=== PATIENT | female | born 1970 | race Hispanic/Latino ===

== ENCOUNTER 2016-03-26 21:08 | Inpatient (IN) | payer SELFPAY ==
[~2016-03-26] VITALS: Ht 167.6 cm; Wt 152.0 kg
[2016-03-26] MEDS: NORTRIPTYLINE 25 MG CAP PO SCH (02:48)
[2016-03-26] MEDS ORDERED: ONDANSETRON 4MG/2ML VIAL (J2405) As Ordered ONE (22:10)
[2016-03-26] MEDS ORDERED: HYDROmorphone HCL 1 MG/ML SYRINGE (J1170) As Ordered ONE ×2 (22:10→23:35)
--- NOTE | 2016-03-26 22:30 | REPUSA ---
Clinical history: Pain, swelling. Findings: The common femoral, superficial femoral, popliteal, and other deep venous structures compre ss normally and demonstrate normal color Doppler flow. Normal venous waveforms with augmentation are seen. The study is slightly limited because of the patient's body habitus. Impression: No evidence of deep vein thrombosis in either femoral popliteal venous system.
[2016-03-26] MEDS ORDERED: IRON65TA PO (23:47)
[2016-03-26] MEDS ORDERED: MAXA10TA14 PO (23:47)
[2016-03-26] MEDS ORDERED: DILA4TAB PO (23:47)
[2016-03-26] MEDS ORDERED: SYMB16INH INH (23:47)
[2016-03-26] MEDS ORDERED: HYDR-4274 PO ×2 (23:47)
[2016-03-26] MEDS ORDERED: MSIR30TA PO (23:47)
[2016-03-26] MEDS ORDERED: PAXI40TA2 PO (23:47)
[2016-03-26] MEDS ORDERED: ZOFR20TA PO (23:47)
[2016-03-26] MEDS ORDERED: NEUR800T PO (23:47)
[2016-03-26] MEDS ORDERED: PROA1AER INH (23:47)
[2016-03-26] MEDS ORDERED: ZANA4CAP PO (23:47)
[2016-03-26] MEDS ORDERED: AMBI5TAB PO (23:47)
[2016-03-26] MEDS ORDERED: NORT50CA PO (23:47)
[2016-03-27] MEDS ORDERED: ALBUTEROL 90 MCG/ACT 8GM HFA INHALER INH PRN (01:30)
[2016-03-27 02:15] VITALS: BP 128/78
--- NOTE | 2016-03-27 02:38 | EDDOCDS ---
Nurse's Notes [facility] Name: Bronwyn Bender Age: 45 yrs Sex: Female : 1970 Arrival Date: 03/26/2016 Time: 21:08 Bed Family 1 Private MD: NO PRIMARY PHYSICIAN, . Diagnosis: Pain in left knee;Pain in right knee;Patient's noncompliance with medical treatment and regimen;Difficulty in walking, not elsewhere classified Presentation: 03/26 21:32 Presenting complaint: Patient states: Just relocated here (yesterday) from [place]. Had jo3 AKHIL total knee replacements 03/01/16 and was sitting too long and now knees are stiff and very painful. Is on Dilaudid and morphine PO for chronic back pain and can have Dilaudid every 4-5 hours but states she has not taken any since 1500 this afternoon. Adult Sepsis Screening: The patient does not have new or worsening altered mentation. Patient's respiratory rate is less than 22. Systolic blood pressure is greater than 100. Patient has a qSOFA score of 0- Negative Sepsis Screen. Suicide/Homicide risk assessment- the patient denies having any suicidal and/or homicidal ideations and does not present with any other emotional, behavioral or mental health complaints. 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 Transition of care: patient was not received from another setting of care. 21:32 Acuity: TASHA Level 4 jo3 21:32 Method Of Arrival: Ambulance jo3 22:15 Acuity level changed due to complexity of care. jo3 22:15 Acuity: TASHA Level 3 jo3 Triage Assessment: 21:45 General: Appears obese, uncomfortable, unkempt, Behavior is cooperative, tearful. Pain: jo3 Location: AKHIL knees. The patient is triaged at the bedside. See Assessment in Nurses Notes section of ED record. Neurological: Level of Consciousness is awake, alert, Oriented to person, place, time. Cardiovascular: No deficits noted. Respiratory: Airway is patent Respiratory effort is even, unlabored. Derm: Skin is pink, warm & dry. Akhil knee incisions healing well and asymptomatic. 03/27 02:02 HIV screening NA for this visit. 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 gabapentin 800 mg Oral tab 1 tab 3 times per day (Last dose: 03/26/2016 17:00) 2. Maxalt 10 mg oral tab 1 tab at onset of migraine (Last dose: 03/25/2016) 3. Paxil 40 mg Oral tab 1 tab once daily (Last dose: 03/26/2016 07:00) 4. hydroxyzine HCl 50 mg Oral tab 1 tab BID and 2 tabs at HS 5. Ambien 5 mg Oral tab 1 tab once daily (Last dose: 03/25/2016) 6. Dilaudid 4 mg Oral tab 1 tab every 4-6 hours (Last dose: 03/26/2016 15:00) 7. morphine 30 mg Oral cap three times a day (Last dose: 03/26/2016 15:00) 8. nortriptyline 50 mg Oral cap HS (Last dose: 03/25/2016) 9. Zanaflex 4 mg Oral tab TID (Last dose: 03/26/2016 15:00) 10. Zofran (as hydrochloride) 4 mg Oral tab every 8 hours as needed - PMHx: Depression; Anxiety; Chronic Back pain; Migraines; - PSHx: Cholecystectomy; Appendectomy; x2; L5 S1 fusion (2009); Gastric Bypass (2008); D & C (1990); AKHIL Knee Replacements (March 01, 2016); Hysterectomy (2002); - Social history: No barriers to communication noted, The patient speaks fluent Egyptian, Speaks appropriately for age. - Family history: Not pertinent. - : The pt / caregiver states he / she is not on anticoagulants. Home medication list is obtained from the patient. - Exposure Risk Screening:: None identified. Screenin:44 Screening information is obtained from the patient. Fall risk: At risk due to chronic kmg1 pain and medications. Assistance ADL's: requires no assistance with activities of daily living. Abuse/DV Screen: The patient / caregiver reports he/she is: not in a situation that causes fear, pain or injury. Nutritional screening: No deficits noted. Advance Directives: There is no active DNR order. home support is adequate. Assessment: 21:47 Reassessment: see triage assessment . jo3 22:34 Reassessment: Pt insisted on knowing how many milligrams of Dilaudid she was receiving jo3 because "1mg doesn't do it...It takes 2mg". Pt advised that we will monitor her for medications effectiveness . 23:44 General: Appears in no apparent distress, obese, Behavior is appropriate for age. Pain: kmg1 Location: right leg and left leg. : Incontinent for large amount of urine. 03/27 00:45 Reassessment: Patient appears in no apparent distress at this time. Patient states kmg1 symptoms have improved. Patient resting comfortably on stretcher. 01:30 General: Appears in no apparent distress, comfortable, Behavior is appropriate for age. kmg1 Pain: Location: back and left leg and right leg. Vital Signs: 03/26 21:45 BP 126 / 64; Pulse 83; Resp 20; Temp 98.4(TE); Pulse Ox 97% on R/A; Weight 155.58 kg; jo3 Height 5 ft. 6 in. (167.64 cm); Pain 10/10; 03/27 01:41 BP 139 / 70 (auto/); Pulse 82; Resp 18; Pulse Ox 97% on R/A; kmg1 03/26 21:45 Body Mass Index 55.36 (155.58 kg, 167.64 cm) jo3 Vitals: 03/26 21:45 Log In Time N/A - ambulance arrival. 3 ED Course: 21:09 Patient visited by Ela Watson, Basketball Scout. ml3 21:09 NO PRIMARY PHYSICIAN, . is Private Physician. ml3 21:09 Patient moved to Waiting ml3 21:11 Esperanza Aburto, KIERA is Primary Nurse. ml3 21:11 Juan Holloway DO is Attending Physician. mm11 21:11 Patient moved to 5 ml3 21:12 Patient visited by Juan Holloway DO. mm11 21:34 Triage Initiated jo3 21:47 Patient visited by Juan Holloway DO. mm11 22:15 Patient visited by Priti Moy,KIERA. jo3 22:35 Patient visited by Priti Moy,KIERA. jo3 22:41 [facility] Payment Agreement was scanned into [employer] and attached to record. jp5 22:50 Inserted saline lock: 22 gauge in left hand. kmg1 22:52 Patient name changed from Bronwyn\\S\\\\S\\Bender\\S\\ to Bronwyn\\S\\ \\S\\Bender. EDMS 22:52 Duplex, Ext LOWER veins, bilat Returned. EDMS 23:28 Patient visited by Juan Holloway DO. mm11 23:28 Salmaulysses Clemente is Hospitalizing Provider. mm11 23:44 The patient / caregiver is instructed regarding the plan of care and ED course. km 23:51 Patient visited by Esperanza Aburto RN. [facility] 03/27 01:15 Patient visited by William Hand PCA. kb5 01:41 No procedures done that require assistance. [facility] 02:08 Patient moved to Family 1 ml3 Administered Medications: 03/26 22:33 Drug: Dilaudid - HYDROmorphone 1 mg [hydromorphone 1 mg/mL injection syringe (1 mL)] jo3 Route: IVP; Site: right hand; 23:34 Follow up: Response: No significant change. [facility] 22:33 Drug: Ondansetron 4 mg [ondansetron HCl 2 mg/mL intravenous solution (2 mL)] Route: jo3 IVP; Site: right hand; 23:42 Drug: Dilaudid - HYDROmorphone 2 mg [hydromorphone 1 mg/mL injection syringe (2 mL)] [facility] Route: IVP; Site: right hand; Order Results: Radiology Order: Duplex, Ext LOWER veins, bilat Test: Duplex, Ext LOWER veins, bilat REASON FOR EXAMINATION: Deformity/Swelling; ; Clinical history: Pain, swelling.; Findings: The common femoral, superficial femoral, popliteal, and other deep venous structures compre; ss normally and demonstrate normal color Doppler flow. Normal venous waveforms with augmentation are; seen. The study is slightly limited because of the patient's body habitus.; Impression:; No evidence of deep vein thrombosis in either femoral popliteal venous system.; ; Outcome: 23:29 Decision to Hospitalize by Provider. mm11 03/27 02:01 Discharge Assessment: Patient awake, alert and oriented x 3. No cognitive and/or ko2 functional deficits noted. Patient verbalized understanding of disposition instructions. patient administered narcotics -. The following High Risk Discharge criteria are identified: None. Admitted to Med/Surg accompanied by tech, via stretcher, with chart. Condition: stable. Ultrasound Study completed. Admission hand-off: Report Faxed Fax receipt verified by Lexy, KIERA 5 Herbert. Property :Personal belongings accompany Pt. 02:37 Patient left the ED. kmg1 Signatures: Dispatcher [employer] EDMS Esperanza Aburto, RN RN kmg1 Ela Watson, Basketball Scout Unit ml3 Priti MoyRN RN jo3 William Hand, YENI CLINICAL DIRECTOR kb5 Juan Holloway, DO mm11 Elba Miner RN RN keiko2 Sandeep Paniagua jp5 Corrections: (The following items were deleted from the chart) 03/26 21:53 21:45 BP 126 / 64; Pulse 20bpm; Resp 20bpm; Pulse Ox 97% RA; Temp 98.4F Temporal; jo3 155.58 kg; Height 5 ft. 6 in.; BMI: 55.3; Pain 10/10; jo3 MTDD
--- NOTE | 2016-03-27 02:38 | EDDOCDS ---
Physician Documentation [facility] Name: Bronwyn Bender Age: 45 yrs Sex: Female : 1970 Arrival Date: 03/26/2016 Time: 21:08 Bed Family 1 Private MD: NO PRIMARY PHYSICIAN, . Disposition: 03/26/16 23:29 Hospitalization ordered by Chyna Villar for Inpatient Admission. Preliminary diagnosis are Pain in left knee, Pain in right knee, Patient's noncompliance with medical treatment and regimen, Difficulty in walking, not elsewhere classified. - Bed requested for 5 Godinez. - Status is Inpatient Admission. kmg1 - Condition is Stable. - Problem is an ongoing problem. - Symptoms have improved. Historical: - Allergies: DAPTOMYCIN; Imitrex; Adhesive tape; - Home Meds: 1. gabapentin 800 mg Oral tab 1 tab 3 times per day (Last dose: 03/26/2016 17:00) 2. Maxalt 10 mg oral tab 1 tab at onset of migraine (Last dose: 03/25/2016) 3. Paxil 40 mg Oral tab 1 tab once daily (Last dose: 03/26/2016 07:00) 4. hydroxyzine HCl 50 mg Oral tab 1 tab BID and 2 tabs at HS 5. Ambien 5 mg Oral tab 1 tab once daily (Last dose: 03/25/2016) 6. Dilaudid 4 mg Oral tab 1 tab every 4-6 hours (Last dose: 03/26/2016 15:00) 7. morphine 30 mg Oral cap three times a day (Last dose: 03/26/2016 15:00) 8. nortriptyline 50 mg Oral cap HS (Last dose: 03/25/2016) 9. Zanaflex 4 mg Oral tab TID (Last dose: 03/26/2016 15:00) 10. Zofran (as hydrochloride) 4 mg Oral tab every 8 hours as needed - PMHx: Depression; Anxiety; Chronic Back pain; Migraines; - PSHx: Cholecystectomy; Appendectomy; x2; L5 S1 fusion (2009); Gastric Bypass (2008); D & C (1990); COLLIN Knee Replacements (March 01, 2016); Hysterectomy (2002); - Social history: No barriers to communication noted, The patient speaks fluent Egyptian, Speaks appropriately for age. - Family history: Not pertinent. - : The pt / caregiver states he / she is not on anticoagulants. Home medication list is obtained from the patient. - Exposure Risk Screening:: None identified. 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 6 in. (167.64 cm); Pain 10; 03/27 01:41 BP 139 / 70 (auto/); Pulse 82; Resp 18; Pulse Ox 97% on R/A; kmg1 03/26 21:45 Body Mass Index 55.36 (155.58 kg, 167.64 cm) jo3 MDM: 03/26 21:49 IV Saline Lock ordered. mm11 21:49 Dilaudid - HYDROmorphone 1 mg IVP once ordered. mm11 21:49 Ondansetron 4 mg IVP once ordered. mm11 21:49 Misc Acute Care Surgeon Order ordered. mm11 21:50 Knee, (AP\E\Lat) Ordered. EDMS 22:07 Misc Acute Care Surgeon Order complete. ml3 22:23 Duplex, Ext LOWER veins, bilat Ordered. EDMS 22:41 [facility] Payment Agreement was scanned into [employer] and attached to record. jp5 22:41 Financial registration complete. jp5 23:19 Dilaudid - HYDROmorphone 2 mg IVP once ordered. mm11 23:19 BED REQUEST+ADM ordered. EDMS 03/27 01:24 Admission / Observation Status ordered. EDMS 01:24 CT-Knee WITHOUT CONTRAST Ordered. EDMS 01:24 REGULAR DIET ordered. EDMS 01:25 COMPLETE BLOOD COUNT Ordered. EDMS 01:25 BASIC METABOLIC PROFILE Ordered. EDMS 01:41 THYROID STIMULATING HORMONE Ordered. EDMS 01:41 IRON (FE) Ordered. EDMS 01:41 TOTAL IRON BINDING CAPACIT Ordered. EDMS 01:41 FERRITIN Ordered. EDMS Administered Medications: 03/26 22:33 Drug: Dilaudid - HYDROmorphone 1 mg [hydromorphone 1 mg/mL injection syringe (1 mL)] jo3 Route: IVP; Site: right hand; 23:34 Follow up: Response: No significant change. kmg1 22:33 Drug: Ondansetron 4 mg [ondansetron HCl 2 mg/mL intravenous solution (2 mL)] Route: jo3 IVP; Site: right hand; 23:42 Drug: Dilaudid - HYDROmorphone 2 mg [hydromorphone 1 mg/mL injection syringe (2 mL)] kmg1 Route: IVP; Site: right hand; Signatures: Dispatcher [employer] EDMS Esperanza Aburto, RN RN g1 Ela Watson, Quantitative Software Engineer Unit ml3 Priti Moy RN RN jo3 Juan Holloway, DO mm11 Sandeep Paniagua jp5 The chart was reviewed and I authenticate all verbal orders and agree with the evaluation and treatment provided.Corrections: (The following items were deleted from the chart) 22:23 21:51 Duplex, Ext,LOWER veins,unilat+US ordered. EDMS EDMS Attachments: 22:41 [facility] Payment Agreement jp5 MTDD
--- NOTE | 2016-03-27 02:39 | HPE ---
DATE OF ADMISSION: 03/27/2016 PRIMARY CARE PROVIDER: Patient originally resided in [facility], recently moved to [place], no primary care provider (PCP) in [place] yet. HISTORY OF PRESENT ILLNESS: Patient is a 45-year-old female with a past medical history significant for morbid obesity, anxiety/depression, chronic back pain, migraine headache, bilateral osteoarthritis of the knees status post total knee replacement, presented to [facility] on 03/26/2016 for acute worsening bilateral knees. Patient had a bilateral total knee arthroplasty on 03/04/[address] Fisher in [facility]. Her hospitalization stay was complicated by pain control and patient was started on oral Dilaudid. Patient did not show significant progression of her physical activities; therefore, patient was discharged on 03/09/2016 and the patient was transferred to [facility] to continue subacute rehabilitation. Then patient did not finish the rehabilitation therapy and patient left the facility and flew to [place] with a 12-hour flight. After the long travel, patient started to have acute worsening of bilateral knee pain. Therefore, patient came to [facility] to seek further treatment. When patient was in the emergency room, ultrasound was performed, which showed negative for deep venous thrombosis (DVT) and hospitalist team was called for admission. All the information obtained from the patient and also from the medical record faxed from the [facility]. ALLERGIES: 1. DAPTOMYCIN (increased CPK level). 2. SUMATRIPTAN (chest pain). HOME MEDICATIONS: - albuterol two-puff inhalation as needed - Symbicort two-puff inhalation twice a day - Neurontin 800 mg by mouth three times a day - Dilaudid 4 mg by mouth every 4 hours as needed - hydroxyzine 50 mg by mouth every morning - hydroxyzine 100 mg by mouth nightly - iron 325 mg by mouth daily - morphine sulfate 30 mg by mouth three times a day - nortriptyline 50 mg by mouth nightly - Zofran 4 mg by mouth every 8 hours as needed for nausea - Paxil 40 mg by mouth daily - Maxalt 10 mg by mouth as needed for migraines - Zanaflex 4 mg by mouth three times a day - Ambien 5 mg by mouth nightly PAST MEDICAL HISTORY: 1. Anxiety/depression. 2. Chronic back pain. 3. Osteoarthritis. 4. Migraine headache. 5. Iron deficiency anemia. 6. Obstructive sleep apnea (YASMANI). 7. Fibromyalgia. 8. Morbid obesity. PAST SURGICAL HISTORY: 1. Hysterectomy. 2. Back surgery (L5-S1 fusion). 3. (C) section times two. 4. Cholecystectomy. 5. Appendectomy. 6. Dilation and curettage (D and C) of the uterus. 7. Bilateral total knee arthroplasty (03/01/2016). SOCIAL HISTORY: Denies smoking. Denies alcohol use. History of marijuana use, which is more than 20 years ago. Patient's used to work in [employer]. That is the reason why the patient and her decided to move to [place]. REVIEW OF SYSTEMS: GENERAL: No fever. No chills. Poor appetite. HEENT: No vision changes. No auditory changes. CARDIOVASCULAR: No chest pain. No palpitations. RESPIRATORY: No shortness of breath. No cough. No sputum production. GASTROINTESTINAL: No abdominal pain. No nausea. No vomiting. No diarrhea. GENITOURINARY: History of urinary incontinence as chronic issue. MUSCULOSKELETAL: Increased swelling and stiffness and pain of the bilateral knees after the long flight. NEUROLOGICAL: Chronic bilateral upper and lower extremity sensation decrease after the vertebral spine surgery. OBJECTIVE: VITAL SIGNS: Blood pressure 126/64, pulse 83, respirations 20, temperature 98.4, pulse oximetry is 97% in room air. Body weight is 155.58. Body height is 167.64 cm. LABORATORY TESTS: None. IMAGING STUDIES: Bilateral knee x-ray preliminary result showing no acute findings. ASSESSMENT AND PLAN: 1. Acute bilateral lower extremity pain. Patient will be admitted to medical/surgical floor on inpatient status. Will follow with laboratory tests. Clinically, patient is hemodynamically stable. Ultrasound and x-ray of bilateral knees show no significant findings. It is not likely patient has a clot or fluid collection. Patient's bilateral knees may be due to knee overuse and the situation complicated by patient's chronic pain. Patient is already on the high dose of narcotics including morphine and Dilaudid. Currently, will continue patient on her home medication. Patient will have a physical therapy evaluation in the morning. After physical therapy evaluation, we will see if patient will continue to benefit from the rehabilitation. 2. Anxiety/depression. Continue Paxil. Patient has been using hydroxyzine twice a day. 3. Fibromyalgia. Patient is on gabapentin and nortriptyline. 4. Insomnia. Ambien. 5. Migraine headache. Patient has Maxalt. 6. Morbid obesity. Body mass index (BMI) of 55.4. 7. Deep venous thrombosis (DVT) prophylaxis. On heparin.
[2016-03-27] MEDS: ONDANSETRON 4 MG TAB (S0181) PO PRN ×2 (02:45→13:07)
[2016-03-27] MEDS: hydrOXYzine 50 MG TAB PO SCH ×3 (02:45→22:49)
[2016-03-27] MEDS: tiZANidine 4 MG TAB PO SCH ×4 (02:46→22:50)
[2016-03-27] MEDS: zolPIDEM TARTRATE 5 MG TAB PO SCH ×2 (02:46→23:42)
[2016-03-27] MEDS: HYDROmorphone (DILAUDID) 4 MG TAB PO PRN ×3 (02:47→13:08)
[2016-03-27] MEDS: SYMBICORT 160/4.5MCG INHALER 6GM INH SCH ×3 (03:05→20:01)
--- NOTE | 2016-03-27 03:30 | REPUSA ---
Indication: Edema and swelling. Technique: Axial CT scan images without contrast. Reformatted coronal and sagittal images. Findings: Bilateral metallic knee arthroplasties. Metallic prosthesis is in good position. No fracture or dislo cation. Mild suprapatellar knee joint effusion. Moderate suprapatellar knee joint effusion. Bilateral periarticular subcutaneous soft tissue edema and fat stranding. Findings are more prominent on the left side. Impression: Osteopenia. Bilateral metallic knee arthroplasties. Metallic prostheses are in good position. Subcutaneous fat stranding and edema more on the left side. This can be secondary to systemic disease (congestive heart failure, venous stasis etc.), lymphedema versus cellulitis. This is clinical evalu ation. No drainable fluid collection.
[2016-03-27] MEDS ORDERED: NYSTATIN 100,000 UNITS/GM TOPICAL PWD 15 GM TOP SCH (03:45)
[2016-03-27] MEDS ORDERED: NYSTATIN 100,000 UNITS/GM TOPICAL PWD 15 GM TOP PRN (04:00)
[2016-03-27] MEDS: HEPARIN SOD (PORCINE) 5000 UNITS/ML VIAL SC SCH ×3 (05:26→22:51)
[2016-03-27 06:00] VITALS: BP 108/57
[2016-03-27 06:54] LABS: MEAN CORPUSCULAR HEMOGLOBIN 25.1 pg (27.0-33.0); MEAN CORPUSCULAR HGB CONC 29.4 g/dl (32.0-36.5); MEAN CORPUSCULAR VOLUME 85.4 fl (80.0-96.0); RED CELL DISTRIBUTION WIDTH 19.5 % (11.5-14.5)
[2016-03-27 07:12] LABS: ANION GAP 8 MEQ/L (8-16); BLOOD UREA NITROGEN 11 MG/DL (7-18); CALCIUM LEVEL 8.6 MG/DL (8.5-10.1); CARBON DIOXIDE LEVEL 27 MEQ/L (21-32); CHLORIDE LEVEL 107 MEQ/L (98-107); CREATININE FOR GFR 0.77 MG/DL (0.55-1.02); FERRITIN 90 NG/ML (8-252); GLOMERULAR FILTRATION RATE > 60.0 (>58); GLUCOSE, FASTING 108 MG/DL (70-105); PERCENT SATURATION 11.1 % (13.2-37.4); POTASSIUM SERUM 3.7 MEQ/L (3.5-5.1); SODIUM LEVEL 142 MEQ/L (136-145); TOTAL IRON BINDING CAPACITY 252 UG/DL (250-450)
--- NOTE | 2016-03-27 08:44 | REP ---
Right knee series: Four views. History: Pain. Findings: Right knee arthroplasty is seen in good position. No bony destructive or erosive changes seen. No fracture is seen. Impression: Status post right knee arthroplasty. No fracture or other acute abnormality. Signed by Antwan Diaz MD 03/27/2016 08:48 A
[2016-03-27] MEDS: GABAPENTIN 400 MG CAP PO SCH ×3 (09:41→22:50)
[2016-03-27] MEDS: MORPHINE 30 MG TAB **MSIR PO SCH ×3 (09:41→22:50)
[2016-03-27] MEDS: FERROUS SULFATE 325MG TAB PO SCH (09:42)
[2016-03-27] MEDS: PARoxetine 20 MG TAB PO SCH (09:43)
[2016-03-27 14:00] VITALS: BP 114/69
[2016-03-27 22:00] VITALS: BP 106/59
[2016-03-27] MEDS: NORTRIPTYLINE 25 MG CAP PO SCH (22:50)
[2016-03-28] MEDS: HYDROmorphone (DILAUDID) 4 MG TAB PO PRN ×4 (04:52→23:16)
[2016-03-28] MEDS: HEPARIN SOD (PORCINE) 5000 UNITS/ML VIAL SC SCH ×3 (05:31→23:15)
[2016-03-28 06:00] VITALS: BP 112/57
[2016-03-28 06:29] LABS: MEAN CORPUSCULAR HEMOGLOBIN 25.5 pg (27.0-33.0); MEAN CORPUSCULAR HGB CONC 29.3 g/dl (32.0-36.5); MEAN CORPUSCULAR VOLUME 87.1 fl (80.0-96.0); RED CELL DISTRIBUTION WIDTH 19.4 % (11.5-14.5); WHITE BLOOD COUNT 6.5 K/mm3 (4.0-10.0)
[2016-03-28 06:42] LABS: ANION GAP 9 MEQ/L (8-16); BLOOD UREA NITROGEN 14 MG/DL (7-18); CALCIUM LEVEL 8.5 MG/DL (8.5-10.1); CARBON DIOXIDE LEVEL 28 MEQ/L (21-32); CHLORIDE LEVEL 109 MEQ/L (98-107); CREATININE FOR GFR 0.93 MG/DL (0.55-1.02); GLOMERULAR FILTRATION RATE > 60.0 (>58); GLUCOSE, FASTING 114 MG/DL (70-105); POTASSIUM SERUM 3.6 MEQ/L (3.5-5.1); SODIUM LEVEL 146 MEQ/L (136-145)
[2016-03-28] MEDS: SYMBICORT 160/4.5MCG INHALER 6GM INH SCH ×2 (07:17→19:51)
[2016-03-28] MEDS: hydrOXYzine 50 MG TAB PO SCH ×2 (09:00→21:55)
[2016-03-28] MEDS: GABAPENTIN 400 MG CAP PO SCH ×3 (10:15→21:54)
[2016-03-28] MEDS: tiZANidine 4 MG TAB PO SCH ×3 (10:15→21:54)
[2016-03-28] MEDS: PARoxetine 20 MG TAB PO SCH (10:16)
[2016-03-28] MEDS: MORPHINE 30 MG TAB **MSIR PO SCH ×3 (10:16→21:54)
[2016-03-28] MEDS: FERROUS SULFATE 325MG TAB PO SCH (10:16)
[2016-03-28 14:00] VITALS: BP 109/62
[2016-03-28] MEDS: NORTRIPTYLINE 25 MG CAP PO SCH (21:54)
[2016-03-28 22:00] VITALS: BP 103/55
--- NOTE | 2016-03-28 22:35 | IPNPDOC ---
Assessment/Plan Date Seen The patient was seen on 03/28/16. Problems Problems: (1) Bilateral knee pain Status: Chronic Problem Text: consult pain clinic in am continue current pain medication (2) Gait instability Status: Chronic Problem Text: pt danelle crawford need rehab (3) Morbidly obese Status: Chronic (4) Chronic pain Status: Chronic (5) Depression Status: Chronic (6) Anxiety Status: Chronic Plan / VTE VTE Prophylaxis Ordered?: Yes Subjective Review of Systems CC/HPI The patient is a 45-year-old female admitted with a reason for visit of Bilateral Knee Pain. Constitutional: Reports: Weakness Musculoskeletal: Reports: Foot Pain, Leg Pain Psych: Reports: Anxiety, Depression Objective Physical Examination General Exam: Positive: No Acute Distress Eye Exam: Positive: Conjunctiva & lids normal, EOMI, PERRLA, Negative: Sclera icteric Chest Exam: Positive: Clear to auscultation, Normal air movement Heart Exam: Positive: Normal S1, Normal S2, Rate Normal, Regular Rhythm, Negative: Murmurs, Rubs Abdomen Exam: Positive: Normal bowel sounds, Soft Extremity Exam: Positive: Edema, Swelling, Tenderness Vital Signs/I&O Vital Signs Date Time Temp Pulse Resp B/P Pulse Ox O2 Delivery O2 Flow Rate FiO2 03/28/16 21:54 18 Room Air 03/28/16 17:32 94 03/28/16 14:00 97.0 87 109/62 I&O- Last 24 Hours up to 6 AM 03/28/16 05:59 Intake Total 1800 ml Output Total 100 ml Balance 1700 ml Laboratory Data Labs 24H Laboratory Tests 2 03/28/16 06:07: Anion Gap 9, Blood Urea Nitrogen 14, Creatinine 0.93, Sodium Level 146H, Potassium Level 3.6, Chloride Level 109H, Carbon Dioxide Level 28, Calcium Level 8.5, Glomerular Filtration Rate > 60.0 CBC/BMP Laboratory Tests 03/28/16 06:07 Calcium Level 8.5, Red Blood Count 3.82 L, Mean Corpuscular Volume 87.1, Mean Corpuscular Hemoglobin 25.5 L, Mean Corpuscular Hemoglobin Concent 29.3 L, Red Cell Distribution Width 19.4 H FELICITY FISHER DO Mar 28, 2016 22:35
[2016-03-28] MEDS: ONDANSETRON 4 MG TAB (S0181) PO PRN (23:15)
[2016-03-28] MEDS: zolPIDEM TARTRATE 5 MG TAB PO SCH (23:16)
[2016-03-29] MEDS: HYDROmorphone (DILAUDID) 4 MG TAB PO PRN ×5 (04:35→23:58)
[2016-03-29 06:00] VITALS: BP 132/76
[2016-03-29] MEDS: HEPARIN SOD (PORCINE) 5000 UNITS/ML VIAL SC SCH ×3 (06:07→21:48)
[2016-03-29 07:40] LABS: MEAN CORPUSCULAR HEMOGLOBIN 26.4 pg (27.0-33.0); MEAN CORPUSCULAR VOLUME 88.1 fl (80.0-96.0); RED CELL DISTRIBUTION WIDTH 17.8 % (11.5-14.5)
[2016-03-29 08:24] LABS: ANION GAP 7 MEQ/L (8-16); BLOOD UREA NITROGEN 16 MG/DL (7-18); CALCIUM LEVEL 8.7 MG/DL (8.5-10.1); CARBON DIOXIDE LEVEL 31 MEQ/L (21-32); CHLORIDE LEVEL 106 MEQ/L (98-107); CREATININE FOR GFR 0.88 MG/DL (0.55-1.02); GLOMERULAR FILTRATION RATE > 60.0 (>58); GLUCOSE, FASTING 88 MG/DL (70-105); POTASSIUM SERUM 4.4 MEQ/L (3.5-5.1); SODIUM LEVEL 144 MEQ/L (136-145)
[2016-03-29] MEDS: tiZANidine 4 MG TAB PO SCH ×3 (08:51→21:50)
[2016-03-29] MEDS: MORPHINE 30 MG TAB **MSIR PO SCH ×3 (08:51→21:50)
[2016-03-29] MEDS: FERROUS SULFATE 325MG TAB PO SCH (08:51)
[2016-03-29] MEDS: hydrOXYzine 50 MG TAB PO SCH ×2 (08:52→21:49)
[2016-03-29] MEDS: GABAPENTIN 400 MG CAP PO SCH ×3 (08:52→21:49)
[2016-03-29] MEDS: PARoxetine 20 MG TAB PO SCH (08:52)
[2016-03-29] MEDS: SYMBICORT 160/4.5MCG INHALER 6GM INH SCH ×2 (09:11→20:32)
[2016-03-29] MEDS ORDERED: MOM 30ML SUSPENSION UDC PO PRN (10:45)
[2016-03-29 14:00] VITALS: BP 139/80
[2016-03-29] MEDS: LORazepam 1 MG TAB PO PRN (15:30)
[2016-03-29] MEDS: MIRALAX *UNIT DOSE* 17GM PACKET PO PRN (17:05)
[2016-03-29] MEDS: DOCUSATE SODIUM 100 MG CAP PO SCH ×2 (17:05→21:49)
--- NOTE | 2016-03-29 18:25 | CR ---
DATE OF CONSULTATION: 03/29/2016 REFERRING PROVIDER: Dr. Tai CHIEF COMPLAINT: Bilateral knee pain. HISTORY OF THE PRESENT ILLNESS: Bronwyn is a 45-year-old female who is suffering from persistent postoperative knee pain, status post bilateral knee replacement on March 01 in [place]. Moved to this area from a rehabilitation facility in [place] 3 days ago. States that during her flight, her pain became intense. Multiple comorbidities to include morbid obesity, chronic opioid dependence, sleep apnea (currently not being treated) and asthma. Currently receiving MSIR 30 mg three times a day and by mouth Dilaudid 4 mg every 4 hours. States that she has been on these medications at this rate for over 5 years. History of lumbar surgery in 2009. She was on chronic pain medications prior to that for chronic generalized back pain. Reports that she was being treated in [place] at a pain clinic. Rating pain intensity in her knees as an 8/10, left greater than right. She received morphine 1 hour prior to my arrival this evening at 5:30 p.m. Pain IS aggravated by walking. ALLERGIES: DAPTOMYCIN, SUMATRIPTAN. PAST MEDICAL HISTORY: Anxiety. Depression. Chronic back pain. Osteoarthritis. Migraine headache. Iron deficiency anemia. Obstructive sleep apnea (YASMANI). Fibromyalgia. Morbid obesity. SURGICAL HISTORY: Hysterectomy. Back surgery L5-S1 fusion 2009. section times two. Cholecystectomy. Appendectomy. Dilation and curettage (D and C). Bilateral total knee arthroplasty 03/01/2016. SOCIAL HISTORY: Currently living with her in-laws. is a . She is not currently employed. Denies smoking. Denies alcohol use. REVIEW OF SYSTEMS: GENERAL: Denies generalized malaise or fever. HEENT: Denies vision changes or auditory changes. CARDIOVASCULAR: Denies chest pain. Denies palpitations. RESPIRATORY: Denies shortness of breath. Denies cough. GASTROINTESTINAL: Denies abdominal pain. Reporting normal bowel movements. Denies nausea. GENITOURINARY: Reports episodes of urinary incontinence as a chronic issue. MUSCULOSKELETAL: Reports increase in left knee incisional pain and swelling. Chronic low back pain. NEUROLOGICAL: Chronic bilateral upper and lower extremity sensation decreased after vertebral spine surgery. PSYCHIATRIC: The patient is depressed. She cries easily. Denies suicidal ideations. PHYSICAL EXAMINATION: Awake, alert. No acute distress. VITAL SIGNS: Temperature 97.7, pulse 96, respiratory rate 19, blood pressure 132/76, oxygen saturation is 97% on room air. CARDIAC: S1, S2, normal rate and rhythm. RESPIRATORY: Lung sounds are clear. Respirations nonlabored. INSPECTION: Bilateral pedal pulses palpable. MUSCULOSKELETAL: Able to move and bend knees. Incision on the left knee is slightly reddened. No exudate. Mildly tender with light palpation. INSPECTION OF SPINE: Nontender with palpation. Well-healed surgical scar noted. The patient is able to roll to her side without difficulty. ASSESSMENT: 1. Postoperative bilateral knee pain. 2. Morbid obesity. 3. Opioid dependency. PLAN: I had a long discussion with her today about my concerns of her being on high-dose narcotic pain medicine, especially with her history of sleep apnea, asthma and morbid obesity. I informed her that I would not recommend that she continue with the use of high-dose opioids and that when she establishes care in this area, that they would look at slowly decreasing and discontinuing these medications. For now, she is opioid tolerant and no dose increases would be recommended. I do not think that she is at risk, but I would recommend that she be evaluated by pulmonary for sleep apnea treatment. Advised her that moving would be the best for her to decrease potential for her to be wheelchair dependent and also to decrease pain. I would advise a physical therapy (PT) evaluation for inpatient rehabilitation services. Thank you for allowing us to participate in the care of your patient. If you have any questions or concerns, please do not hesitate to contact me. Sincerely, Lay Pop, Family Nurse Practitioner [facility] Copy To: Dr. Yoanna MATA
[2016-03-29] MEDS: NORTRIPTYLINE 25 MG CAP PO SCH (21:49)
[2016-03-29 22:00] VITALS: BP 100/62
--- NOTE | 2016-03-29 22:40 | IPNPDOC ---
Assessment/Plan Date Seen The patient was seen on 03/29/16. Problems Problems: (1) Bilateral knee pain Status: Acute Problem Text: pain management is consulted continue current meds continue current pain medication (2) Gait instability Status: Acute Problem Text: pt danelle crawford need rehab (3) Morbidly obese Status: Chronic (4) Chronic pain Status: Chronic (5) Depression Status: Chronic (6) Anxiety Status: Chronic Problem Text: ativan was added Plan / VTE VTE Prophylaxis Ordered?: Yes Subjective Review of Systems CC/HPI The patient is a 45-year-old female admitted with a reason for visit of Bilateral Knee Pain. Pulmonary: Denies: Cough, Dyspnea Cardiovascular: Denies: Chest Pain, Lt Headedness, Orthopnea, Palpitations, Paroxysmal Noc. Dyspnea Musculoskeletal: Reports: Joint Pain, Leg Pain Psych: Reports: Anxiety Objective Physical Examination General Exam: Positive: No Acute Distress Eye Exam: Positive: Conjunctiva & lids normal, EOMI, PERRLA, Negative: Sclera icteric Chest Exam: Positive: Clear to auscultation, Normal air movement Heart Exam: Positive: Normal S1, Normal S2, Rate Normal, Regular Rhythm, Negative: Murmurs, Rubs Abdomen Exam: Positive: Normal bowel sounds, Soft Extremity Exam: Positive: Edema, Swelling, Tenderness Vital Signs/I&O Vital Signs Date Time Temp Pulse Resp B/P Pulse Ox O2 Delivery O2 Flow Rate FiO2 03/29/16 22:00 97.6 87 18 100/62 93 Room Air 03/29/16 14:00 2.0 I&O- Last 24 Hours up to 6 AM 03/29/16 06:00 Intake Total 2280 ml Output Total 400 ml Balance 1880 ml Laboratory Data Labs 24H Laboratory Tests 2 03/29/16 07:24: Anion Gap 7L, Blood Urea Nitrogen 16, Creatinine 0.88, Sodium Level 144, Potassium Level 4.4#, Chloride Level 106, Carbon Dioxide Level 31, Calcium Level 8.7, Glomerular Filtration Rate > 60.0 CBC/BMP Laboratory Tests 03/29/16 07:24 Calcium Level 8.7, Red Blood Count 3.77 L, Mean Corpuscular Volume 88.1, Mean Corpuscular Hemoglobin 26.4 L, Mean Corpuscular Hemoglobin Concent 30.0 L, Red Cell Distribution Width 17.8 H FELICITY FISHER DO Mar 29, 2016 22:40
[2016-03-29] MEDS: zolPIDEM TARTRATE 5 MG TAB PO SCH (23:57)
[2016-03-30 06:00] VITALS: BP 124/63
[2016-03-30] MEDS: HYDROmorphone (DILAUDID) 4 MG TAB PO PRN ×4 (06:25→23:04)
[2016-03-30] MEDS: HEPARIN SOD (PORCINE) 5000 UNITS/ML VIAL SC SCH ×3 (06:25→21:12)
[2016-03-30 06:59] LABS: MEAN CORPUSCULAR HEMOGLOBIN 25.7 pg (27.0-33.0); MEAN CORPUSCULAR HGB CONC 30.1 g/dl (32.0-36.5); MEAN CORPUSCULAR VOLUME 85.3 fl (80.0-96.0); WHITE BLOOD COUNT 5.9 K/mm3 (4.0-10.0)
[2016-03-30 07:15] LABS: ANION GAP 7 MEQ/L (8-16); BLOOD UREA NITROGEN 15 MG/DL (7-18); CALCIUM LEVEL 8.5 MG/DL (8.5-10.1); CARBON DIOXIDE LEVEL 31 MEQ/L (21-32); CHLORIDE LEVEL 105 MEQ/L (98-107); GLOMERULAR FILTRATION RATE > 60.0 (>58); GLUCOSE, FASTING 85 MG/DL (70-105); POTASSIUM SERUM 3.9 MEQ/L (3.5-5.1); SODIUM LEVEL 143 MEQ/L (136-145)
[2016-03-30] MEDS: SYMBICORT 160/4.5MCG INHALER 6GM INH SCH ×2 (07:39→21:32)
[2016-03-30] MEDS: hydrOXYzine 50 MG TAB PO SCH ×2 (09:00→21:11)
[2016-03-30] MEDS: DOCUSATE SODIUM 100 MG CAP PO SCH ×2 (09:24→21:11)
[2016-03-30] MEDS: PARoxetine 20 MG TAB PO SCH (09:25)
[2016-03-30] MEDS: FERROUS SULFATE 325MG TAB PO SCH (09:25)
[2016-03-30] MEDS: tiZANidine 4 MG TAB PO SCH ×3 (09:26→21:11)
[2016-03-30] MEDS: MORPHINE 30 MG TAB **MSIR PO SCH ×3 (09:26→21:13)
[2016-03-30] MEDS: GABAPENTIN 400 MG CAP PO SCH ×3 (09:26→21:12)
[2016-03-30] MEDS: LORazepam 1 MG TAB PO PRN ×2 (09:34→20:10)
[2016-03-30] MEDS: MIRALAX *UNIT DOSE* 17GM PACKET PO PRN (09:34)
--- NOTE | 2016-03-30 10:26 | EDDOCDS ---
Physician Documentation [facility] Name: Bronwyn Bender Age: 45 yrs Sex: Female : 1970 Arrival Date: 03/26/2016 Time: 21:08 Bed Family 1 Private MD: NO PRIMARY PHYSICIAN, . Disposition: 03/26/16 23:29 Hospitalization ordered by Chyna Villar for Inpatient Admission. Preliminary diagnosis are Pain in left knee, Pain in right knee, Patient's noncompliance with medical treatment and regimen, Difficulty in walking, not elsewhere classified. - Bed requested for 5 Godinez. - Status is Inpatient Admission. kmg1 - Condition is Stable. - Problem is an ongoing problem. - Symptoms have improved. Historical: - Allergies: DAPTOMYCIN; Imitrex; Adhesive tape; - Home Meds: 1. gabapentin 800 mg Oral tab 1 tab 3 times per day (Last dose: 03/26/2016 17:00) 2. Maxalt 10 mg oral tab 1 tab at onset of migraine (Last dose: 03/25/2016) 3. Paxil 40 mg Oral tab 1 tab once daily (Last dose: 03/26/2016 07:00) 4. hydroxyzine HCl 50 mg Oral tab 1 tab BID and 2 tabs at HS 5. Ambien 5 mg Oral tab 1 tab once daily (Last dose: 03/25/2016) 6. Dilaudid 4 mg Oral tab 1 tab every 4-6 hours (Last dose: 03/26/2016 15:00) 7. morphine 30 mg Oral cap three times a day (Last dose: 03/26/2016 15:00) 8. nortriptyline 50 mg Oral cap HS (Last dose: 03/25/2016) 9. Zanaflex 4 mg Oral tab TID (Last dose: 03/26/2016 15:00) 10. Zofran (as hydrochloride) 4 mg Oral tab every 8 hours as needed - PMHx: Depression; Anxiety; Chronic Back pain; Migraines; - PSHx: Cholecystectomy; Appendectomy; x2; L5 S1 fusion (2009); Gastric Bypass (2008); D & C (1990); COLLIN Knee Replacements (March 01, 2016); Hysterectomy (2002); - Social history: No barriers to communication noted, The patient speaks fluent Sierra Leonean, Speaks appropriately for age. - Family history: Not pertinent. - : The pt / caregiver states he / she is not on anticoagulants. Home medication list is obtained from the patient. - Exposure Risk Screening:: None identified. PERFORMANCE TESTER: 03/26 21:45 LMP N/A - Hysterectomy jo3 Vital Signs: 21:45 BP 126 / 64; Pulse 83; Resp 20; Temp 98.4(TE); Pulse Ox 97% on R/A; Weight 155.58 kg / jo3 343 lbs; Height 5 ft. 6 in. (167.64 cm); Pain 12/28; 03/27 01:41 BP 139 / 70 (auto/); Pulse 82; Resp 18; Pulse Ox 97% on R/A; kmg1 03/26 21:45 Body Mass Index 55.36 (155.58 kg, 167.64 cm) jo3 MDM: 03/26 21:49 IV Saline Lock ordered. mm11 21:49 Dilaudid - HYDROmorphone 1 mg IVP once ordered. mm11 21:49 Ondansetron 4 mg IVP once ordered. mm11 21:49 Misc Sheet Metal Assembler And Riveter Order ordered. mm11 21:50 Knee, (AP\E\Lat) Ordered. EDMS 22:07 Misc Sheet Metal Assembler And Riveter Order complete. ml3 22:23 Duplex, Ext LOWER veins, bilat Ordered. EDMS 22:41 [facility] Payment Agreement was scanned into [employer] and attached to record. jp5 22:41 Financial registration complete. jp5 23:19 Dilaudid - HYDROmorphone 2 mg IVP once ordered. mm11 23:19 BED REQUEST+ADM ordered. EDMS 03/27 01:24 Admission / Observation Status ordered. EDMS 01:24 CT-Knee WITHOUT CONTRAST Ordered. EDMS 01:24 REGULAR DIET ordered. EDMS 01:25 COMPLETE BLOOD COUNT Ordered. EDMS 01:25 BASIC METABOLIC PROFILE Ordered. EDMS 01:41 THYROID STIMULATING HORMONE Ordered. EDMS 01:41 IRON (FE) Ordered. EDMS 01:41 TOTAL IRON BINDING CAPACIT Ordered. EDMS 01:41 FERRITIN Ordered. EDMS 10:21 T-Sheet-- Draft Copy was scanned into [employer]Name and attached to record. gb Administered Medications: 03/26 22:33 Drug: Dilaudid - HYDROmorphone 1 mg [hydromorphone 1 mg/mL injection syringe (1 mL)] jo3 Route: IVP; Site: right hand; 23:34 Follow up: Response: No significant change. kmg1 22:33 Drug: Ondansetron 4 mg [ondansetron HCl 2 mg/mL intravenous solution (2 mL)] Route: jo3 IVP; Site: right hand; 23:42 Drug: Dilaudid - HYDROmorphone 2 mg [hydromorphone 1 mg/mL injection syringe (2 mL)] km Route: IVP; Site: right hand; Signatures: Dispatcher MedHost EDMS Esperanza Aburto, RN RN kmg1 Mellisa Walker, Reg Reg gb Ela Watson, Extractor Filler Unit ml3 Priti Moy RN RN jo3 Juan Holloway, DO mm11 Sandeep Paniagua jp5 The chart was reviewed and I authenticate all verbal orders and agree with the evaluation and treatment provided.Corrections: (The following items were deleted from the chart) :23 21:51 Duplex, Ext,LOWER veins,unilat+US ordered. EDMS EDMS Attachments: 22:41 [facility] Payment Agreement jp5 03/27 10:21 T-Sheet-- Draft Copy gb Chart Complete MTDD
--- NOTE | 2016-03-30 10:26 | EDDOCDS ---
Nurse's Notes [facility] Name: Bronwyn Bender Age: 45 yrs Sex: Female : 1970 Arrival Date: 03/26/2016 Time: 21:08 Bed Family 1 Private MD: NO PRIMARY PHYSICIAN, . Diagnosis: Pain in left knee;Pain in right knee;Patient's noncompliance with medical treatment and regimen;Difficulty in walking, not elsewhere classified Presentation: 03/26 21:32 Presenting complaint: Patient states: Just relocated here (yesterday) from [place]. Had jo3 AKHIL total knee replacements 03/01/16 and was sitting too long and now knees are stiff and very painful. Is on Dilaudid and morphine PO for chronic back pain and can have Dilaudid every 4-5 hours but states she has not taken any since 1500 this afternoon. Adult Sepsis Screening: The patient does not have new or worsening altered mentation. Patient's respiratory rate is less than 22. Systolic blood pressure is greater than 100. Patient has a qSOFA score of 0- Negative Sepsis Screen. Suicide/Homicide risk assessment- the patient denies having any suicidal and/or homicidal ideations and does not present with any other emotional, behavioral or mental health complaints. Status: Patient is not a auto service writer or dependent. Transition of care: patient was not received from another setting of care. 21:32 Acuity: TASHA Level 4 jo3 21:32 Method Of Arrival: Ambulance jo3 22:15 Acuity level changed due to complexity of care. jo3 22:15 Acuity: TASHA Level 3 jo3 Triage Assessment: 21:45 General: Appears obese, uncomfortable, unkempt, Behavior is cooperative, tearful. Pain: jo3 Location: AKHIL knees. The patient is triaged at the bedside. See Assessment in Nurses Notes section of ED record. Neurological: Level of Consciousness is awake, alert, Oriented to person, place, time. Cardiovascular: No deficits noted. Respiratory: Airway is patent Respiratory effort is even, unlabored. Derm: Skin is pink, warm & dry. Akhil knee incisions healing well and asymptomatic. 03/27 02:02 HIV screening NA for this visit. ko2 GRAPHITE GRINDER: 03/26 21:45 LMP N/A - Hysterectomy jo3 Historical: - Allergies: DAPTOMYCIN; Imitrex; Adhesive tape; - Home Meds: 1. gabapentin 800 mg Oral tab 1 tab 3 times per day (Last dose: 03/26/2016 17:00) 2. Maxalt 10 mg oral tab 1 tab at onset of migraine (Last dose: 03/25/2016) 3. Paxil 40 mg Oral tab 1 tab once daily (Last dose: 03/26/2016 07:00) 4. hydroxyzine HCl 50 mg Oral tab 1 tab BID and 2 tabs at HS 5. Ambien 5 mg Oral tab 1 tab once daily (Last dose: 03/25/2016) 6. Dilaudid 4 mg Oral tab 1 tab every 4-6 hours (Last dose: 03/26/2016 15:00) 7. morphine 30 mg Oral cap three times a day (Last dose: 03/26/2016 15:00) 8. nortriptyline 50 mg Oral cap HS (Last dose: 03/25/2016) 9. Zanaflex 4 mg Oral tab TID (Last dose: 03/26/2016 15:00) 10. Zofran (as hydrochloride) 4 mg Oral tab every 8 hours as needed - PMHx: Depression; Anxiety; Chronic Back pain; Migraines; - PSHx: Cholecystectomy; Appendectomy; x2; L5 S1 fusion (2009); Gastric Bypass (2008); D & C (1990); AKHIL Knee Replacements (March 01, 2016); Hysterectomy (2002); - Social history: No barriers to communication noted, The patient speaks fluent Kazakh, Speaks appropriately for age. - Family history: Not pertinent. - : The pt / caregiver states he / she is not on anticoagulants. Home medication list is obtained from the patient. - Exposure Risk Screening:: None identified. Screenin:44 Screening information is obtained from the patient. Fall risk: At risk due to chronic kmg1 pain and medications. Assistance ADL's: requires no assistance with activities of daily living. Abuse/DV Screen: The patient / caregiver reports he/she is: not in a situation that causes fear, pain or injury. Nutritional screening: No deficits noted. Advance Directives: There is no active DNR order. home support is adequate. Assessment: 21:47 Reassessment: see triage assessment . jo3 22:34 Reassessment: Pt insisted on knowing how many milligrams of Dilaudid she was receiving jo3 because "1mg doesn't do it...It takes 2mg". Pt advised that we will monitor her for medications effectiveness . 23:44 General: Appears in no apparent distress, obese, Behavior is appropriate for age. Pain: kmg1 Location: right leg and left leg. : Incontinent for large amount of urine. 03/27 00:45 Reassessment: Patient appears in no apparent distress at this time. Patient states kmg1 symptoms have improved. Patient resting comfortably on stretcher. 01:30 General: Appears in no apparent distress, comfortable, Behavior is appropriate for age. kmg1 Pain: Location: back and left leg and right leg. Vital Signs: 03/26 21:45 BP 126 / 64; Pulse 83; Resp 20; Temp 98.4(TE); Pulse Ox 97% on R/A; Weight 155.58 kg; jo3 Height 5 ft. 6 in. (167.64 cm); Pain 10/10; 03/27 01:41 BP 139 / 70 (auto/); Pulse 82; Resp 18; Pulse Ox 97% on R/A; kmg1 03/26 21:45 Body Mass Index 55.36 (155.58 kg, 167.64 cm) jo3 Vitals: 03/26 21:45 Log In Time N/A - ambulance arrival. 3 ED Course: 21:09 Patient visited by Ela Watson, Concrete Mixing Truck Driver. ml3 21:09 NO PRIMARY PHYSICIAN, . is Private Physician. ml3 21:09 Patient moved to Waiting ml3 21:11 Esperanza Aburto, KIERA is Primary Nurse. ml3 21:11 Juan Holloway DO is Attending Physician. mm11 21:11 Patient moved to 5 ml3 21:12 Patient visited by Juan Holloway DO. mm11 21:34 Triage Initiated jo3 21:47 Patient visited by Juan Holloway DO. mm11 22:15 Patient visited by Priti Moy,KIERA. jo3 22:35 Patient visited by Priti Moy,KIERA. jo3 22:41 [facility] Payment Agreement was scanned into [employer] and attached to record. jp5 22:50 Inserted saline lock: 22 gauge in left hand. kmg1 22:52 Patient name changed from Bronwyn\\S\\\\S\\Bender\\S\\ to Bronwyn\\S\\ \\S\\Bender. EDMS 22:52 Duplex, Ext LOWER veins, bilat Returned. EDMS 23:28 Patient visited by Juan Holloway DO. mm11 23:28 Chyna Villar is Hospitalizing Provider. mm11 23:44 The patient / caregiver is instructed regarding the plan of care and ED course. km 23:51 Patient visited by Esperanza Aburto RN. [facility] [place] 03/27 01:15 Patient visited by William Hand PCA. kb5 01:41 No procedures done that require assistance. [facility] [place] 02:08 Patient moved to Family 1 ml3 10:21 T-Sheet-- Draft Copy was scanned into [employer] and attached to record. gb Administered Medications: 03/26 22:33 Drug: Dilaudid - HYDROmorphone 1 mg [hydromorphone 1 mg/mL injection syringe (1 mL)] jo3 Route: IVP; Site: right hand; 23:34 Follow up: Response: No significant change. [facility] [place] 22:33 Drug: Ondansetron 4 mg [ondansetron HCl 2 mg/mL intravenous solution (2 mL)] Route: jo3 IVP; Site: right hand; 23:42 Drug: Dilaudid - HYDROmorphone 2 mg [hydromorphone 1 mg/mL injection syringe (2 mL)] [facility] [place] Route: IVP; Site: right hand; Order Results: Radiology Order: Duplex, Ext LOWER veins, bilat Test: Duplex, Ext LOWER veins, bilat REASON FOR EXAMINATION: Deformity/Swelling; ; Clinical history: Pain, swelling.; Findings: The common femoral, superficial femoral, popliteal, and other deep venous structures compre; ss normally and demonstrate normal color Doppler flow. Normal venous waveforms with augmentation are; seen. The study is slightly limited because of the patient's body habitus.; Impression:; No evidence of deep vein thrombosis in either femoral popliteal venous system.; ; Outcome: 23:29 Decision to Hospitalize by Provider. mm11 03/27 02:01 Discharge Assessment: Patient awake, alert and oriented x 3. No cognitive and/or ko2 functional deficits noted. Patient verbalized understanding of disposition instructions. patient administered narcotics -. The following High Risk Discharge criteria are identified: None. Admitted to Med/Surg accompanied by tech, via stretcher, with chart. Condition: stable. Ultrasound Study completed. Admission hand-off: Report Faxed Fax receipt verified by KIERA Pugh 5 Godinez. Property :Personal belongings accompany Pt. 02:37 Patient left the ED. kmg1 Signatures: Dispatcher MedHost EDMS Esperanza Aburto, RN RN kmg1 Mellisa Walker, Reg Reg gb Shirley, PraveenaAkinMary, Concrete Mixing Truck Driver Unit ml3 Priti MoyRN RN jo3 William Hand, SCROLL SHEAR OPERATOR SCROLL SHEAR OPERATOR kb5 Juan Holloway, DO mm11 Elba MinerRN RN ko2 Sandeep Paniagua jp5 Corrections: (The following items were deleted from the chart) 03/26 21:53 21:45 BP 126 / 64; Pulse 20bpm; Resp 20bpm; Pulse Ox 97% RA; Temp 98.4F Temporal; jo3 155.58 kg; Height 5 ft. 6 in.; BMI: 55.3; Pain 10/10; jo3 Chart Complete MTDD
--- NOTE | 2016-03-30 10:26 | EDDOCDS ---
Physician Documentation [facility] Name: Bronwyn Bender Age: 45 yrs Sex: Female : 1970 Arrival Date: 03/26/2016 Time: 21:08 Bed Family 1 Private MD: NO PRIMARY PHYSICIAN, . Disposition: 03/26/16 23:29 Hospitalization ordered by Chyna Villar for Inpatient Admission. Preliminary diagnosis are Pain in left knee, Pain in right knee, Patient's noncompliance with medical treatment and regimen, Difficulty in walking, not elsewhere classified. - Bed requested for 5 Godinez. - Status is Inpatient Admission. kmg1 - Condition is Stable. - Problem is an ongoing problem. - Symptoms have improved. Historical: - Allergies: DAPTOMYCIN; Imitrex; Adhesive tape; - Home Meds: 1. gabapentin 800 mg Oral tab 1 tab 3 times per day (Last dose: 03/26/2016 17:00) 2. Maxalt 10 mg oral tab 1 tab at onset of migraine (Last dose: 03/25/2016) 3. Paxil 40 mg Oral tab 1 tab once daily (Last dose: 03/26/2016 07:00) 4. hydroxyzine HCl 50 mg Oral tab 1 tab BID and 2 tabs at HS 5. Ambien 5 mg Oral tab 1 tab once daily (Last dose: 03/25/2016) 6. Dilaudid 4 mg Oral tab 1 tab every 4-6 hours (Last dose: 03/26/2016 15:00) 7. morphine 30 mg Oral cap three times a day (Last dose: 03/26/2016 15:00) 8. nortriptyline 50 mg Oral cap HS (Last dose: 03/25/2016) 9. Zanaflex 4 mg Oral tab TID (Last dose: 03/26/2016 15:00) 10. Zofran (as hydrochloride) 4 mg Oral tab every 8 hours as needed - PMHx: Depression; Anxiety; Chronic Back pain; Migraines; - PSHx: Cholecystectomy; Appendectomy; x2; L5 S1 fusion (2009); Gastric Bypass (2008); D & C (1990); COLLIN Knee Replacements (March 01, 2016); Hysterectomy (2002); - Social history: No barriers to communication noted, The patient speaks fluent Botswanan, Speaks appropriately for age. - Family history: Not pertinent. - : The pt / caregiver states he / she is not on anticoagulants. Home medication list is obtained from the patient. - Exposure Risk Screening:: None identified. CANDY POLISHER: 03/26 21:45 LMP N/A - Hysterectomy jo3 Vital Signs: 21:45 BP 126 / 64; Pulse 83; Resp 20; Temp 98.4(TE); Pulse Ox 97% on R/A; Weight 155.58 kg / jo3 343 lbs; Height 5 ft. 6 in. (167.64 cm); Pain 12/28; 03/27 01:41 BP 139 / 70 (auto/); Pulse 82; Resp 18; Pulse Ox 97% on R/A; kmg1 03/26 21:45 Body Mass Index 55.36 (155.58 kg, 167.64 cm) jo3 MDM: 03/26 21:49 IV Saline Lock ordered. mm11 21:49 Dilaudid - HYDROmorphone 1 mg IVP once ordered. mm11 21:49 Ondansetron 4 mg IVP once ordered. mm11 21:49 Misc Laser Set Up Operator Order ordered. mm11 21:50 Knee, (AP\E\Lat) Ordered. EDMS 22:07 Misc Laser Set Up Operator Order complete. ml3 22:23 Duplex, Ext LOWER veins, bilat Ordered. EDMS 22:41 [facility] Payment Agreement was scanned into [employer] and attached to record. jp5 22:41 Financial registration complete. jp5 23:19 Dilaudid - HYDROmorphone 2 mg IVP once ordered. mm11 23:19 BED REQUEST+ADM ordered. EDMS 03/27 01:24 Admission / Observation Status ordered. EDMS 01:24 CT-Knee WITHOUT CONTRAST Ordered. EDMS 01:24 REGULAR DIET ordered. EDMS 01:25 COMPLETE BLOOD COUNT Ordered. EDMS 01:25 BASIC METABOLIC PROFILE Ordered. EDMS 01:41 THYROID STIMULATING HORMONE Ordered. EDMS 01:41 IRON (FE) Ordered. EDMS 01:41 TOTAL IRON BINDING CAPACIT Ordered. EDMS 01:41 FERRITIN Ordered. EDMS 10:21 T-Sheet-- Draft Copy was scanned into [employer] and attached to record. gb Administered Medications: 03/26 22:33 Drug: Dilaudid - HYDROmorphone 1 mg [hydromorphone 1 mg/mL injection syringe (1 mL)] jo3 Route: IVP; Site: right hand; 23:34 Follow up: Response: No significant change. kmg1 22:33 Drug: Ondansetron 4 mg [ondansetron HCl 2 mg/mL intravenous solution (2 mL)] Route: jo3 IVP; Site: right hand; 23:42 Drug: Dilaudid - HYDROmorphone 2 mg [hydromorphone 1 mg/mL injection syringe (2 mL)] km Route: IVP; Site: right hand; Signatures: Dispatcher MedHost EDMS Esperanza Aburto, RN RN kmg1 Mellisa Walker, Reg Reg gb Ela Watson, Data Processing Operator Unit ml3 Priti Moy RN RN jo3 Juan Holloway, DO mm11 Sandeep Paniagua jp5 The chart was reviewed and I authenticate all verbal orders and agree with the evaluation and treatment provided.Corrections: (The following items were deleted from the chart) :23 21:51 Duplex, Ext,LOWER veins,unilat+US ordered. EDMS EDMS Attachments: 22:41 [facility] Payment Agreement jp5 03/27 10:21 T-Sheet-- Draft Copy gb Chart Complete MTDD
[2016-03-30 14:30] VITALS: BP 123/69
--- NOTE | 2016-03-30 17:20 | IPNPDOC ---
Assessment/Plan Date Seen The patient was seen on 03/30/16. Problems Problems: (1) Bilateral knee pain Status: Chronic Problem Text: Patient currently on morphine sulfate 30 mg 3 times a day, and Dilaudid 4 mg by mouth every 4 hours The patient was seen by pain management here and they have recommended her to taper off some of these medications as there is a concern for her respiratory status and possible underlying sleep apnea The patient is not established in this community and has been receiving her pain medications from a physician in the [facility] area. I will try to reach out to her physician out there regarding pain management for this patient, as the patient states that her pain is not adequately controlled despite these high doses of narcotic medications. I am hesitant to increase the patient's narcotic medication doses given the fact that she is already on very high doses of narcotic medication I have ordered physical therapy evaluation (2) Gait instability Status: Chronic Response to Treatment: Stable Problem Text: Physical therapy consulted (3) Morbidly obese Status: Chronic Response to Treatment: Stable (4) Chronic pain Status: Chronic Problem Text: Pain management input noted. (5) Depression Status: Chronic Plan / VTE VTE Prophylaxis Ordered?: Yes Subjective Review of Systems CC/HPI The patient is a 45-year-old female admitted with a reason for visit of Bilateral Knee Pain. General: Denies: Chills, Night Sweats Constitutional: Denies: Chills, Fever Eyes: Denies: Pain, Vision change ENT: Denies: Ear Pain, Head Aches Skin: Denies: Lesions, Rash Pulmonary: Denies: Cough, Dyspnea Gastrointestinal: Denies: Nausea, Vomiting Genitourinary: Denies: Dysuria, Frequency Hematologic: Denies: Bleeding Excessively, Bruising Musculoskeletal: Reports: Joint Pain (B/L Knee Pain) Objective Physical Examination General Exam: Positive: Alert, Cooperative, No Acute Distress Eye Exam: Positive: Conjunctiva & lids normal, EOMI, PERRLA, Negative: Sclera icteric Chest Exam: Positive: Clear to auscultation, Normal air movement Heart Exam: Positive: Normal S1, Normal S2, Rate Normal, Regular Rhythm, Negative: Murmurs, Rubs Abdomen Exam: Positive: Normal bowel sounds, Soft, Negative: Tenderness Extremity Exam: Positive: Edema, Other (bilateral knees noted to have a postoperative scar. No erythema or tenderness on palpation. Patient does have some limitation on flexion and extension of both knees secondary to pain. However there is no obvious joint effusion noted.) Vital Signs/I&O Vital Signs Date Time Temp Pulse Resp B/P Pulse Ox O2 Delivery O2 Flow Rate FiO2 03/30/16 16:10 18 Room Air 03/30/16 14:30 98.1 91 123/69 98 03/29/16 14:00 2.0 I&O- Last 24 Hours up to 6 AM 03/30/16 06:00 Intake Total 1560 ml Balance 1560 ml Laboratory Data Labs 24H Laboratory Tests 2 03/30/16 06:44: Anion Gap 7L, Blood Urea Nitrogen 15, Creatinine 0.80, Sodium Level 143, Potassium Level 3.9, Chloride Level 105, Carbon Dioxide Level 31, Calcium Level 8.5, Glomerular Filtration Rate > 60.0 CBC/BMP Laboratory Tests 03/30/16 06:44 Calcium Level 8.5, Red Blood Count 3.77 L, Mean Corpuscular Volume 85.3, Mean Corpuscular Hemoglobin 25.7 L, Mean Corpuscular Hemoglobin Concent 30.1 L, Red Cell Distribution Width 19.0 H FREEDOM MIRANDA MD Mar 30, 2016 17:20
[2016-03-30] MEDS: zolPIDEM TARTRATE 5 MG TAB PO SCH (21:00)
[2016-03-30] MEDS: NORTRIPTYLINE 25 MG CAP PO SCH (21:11)
[2016-03-30 22:00] VITALS: BP 117/71
[2016-03-31] MEDS: LORazepam 1 MG TAB PO PRN ×2 (02:08→19:53)
[2016-03-31] MEDS: zolPIDEM TARTRATE 5 MG TAB PO SCH ×2 (02:09→23:37)
[2016-03-31 06:00] VITALS: BP 111/62
[2016-03-31] MEDS: HYDROmorphone (DILAUDID) 4 MG TAB PO PRN ×3 (06:23→23:37)
[2016-03-31] MEDS: HEPARIN SOD (PORCINE) 5000 UNITS/ML VIAL SC SCH ×3 (06:23→22:46)
[2016-03-31] MEDS: SYMBICORT 160/4.5MCG INHALER 6GM INH SCH ×2 (08:00→20:09)
[2016-03-31] MEDS: PARoxetine 20 MG TAB PO SCH (08:55)
[2016-03-31] MEDS: DOCUSATE SODIUM 100 MG CAP PO SCH ×2 (08:55→22:45)
[2016-03-31] MEDS: MIRALAX *UNIT DOSE* 17GM PACKET PO PRN (08:55)
[2016-03-31] MEDS: tiZANidine 4 MG TAB PO SCH ×3 (08:55→22:46)
[2016-03-31] MEDS: GABAPENTIN 400 MG CAP PO SCH ×3 (08:55→21:00)
[2016-03-31] MEDS: MORPHINE 30 MG TAB **MSIR PO SCH ×3 (08:56→22:46)
[2016-03-31] MEDS: FERROUS SULFATE 325MG TAB PO SCH (08:57)
[2016-03-31] MEDS: hydrOXYzine 50 MG TAB PO SCH ×2 (08:57→21:00)
[2016-03-31] MEDS ORDERED: HYDROmorphone HCL 1 MG/ML SYRINGE (J1170) IV ONE (10:30)
[2016-03-31 14:00] VITALS: BP 134/72
--- NOTE | 2016-03-31 15:52 | IPNPDOC ---
Assessment/Plan Date Seen The patient was seen on 03/31/16. Problems Problems: (1) Bilateral knee pain Status: Chronic Problem Text: Patient currently on morphine sulfate 30 mg 3 times a day, and Dilaudid 4 mg by mouth every 4 hours The patient was seen by pain management here and they have recommended her to taper off some of these medications as there is a concern for her respiratory status and possible underlying sleep apnea The patient is not established in this community and has been receiving her pain medications from a physician in the [facility], from where she recently just moved from.. I am hesitant to increase the patient's narcotic medication doses given the fact that she is already on very high doses of narcotic medication We will continue to have the patient work with physical therapy while trying to optimize her pain control. (2) Gait instability Status: Chronic Response to Treatment: Stable Problem Text: Physical therapy on board. (3) Morbidly obese Status: Chronic Response to Treatment: Stable Problem Text: I did discuss the need for the patient to lose weight in an effort to gain more mobility (4) Chronic pain Status: Chronic Problem Text: Pain management input noted. (5) Depression Status: Chronic Problem Text: Continue paroxetine. Plan / VTE VTE Prophylaxis Ordered?: Yes Subjective Review of Systems CC/HPI The patient is a 45-year-old female admitted with a reason for visit of Bilateral Knee Pain. General: Denies: Chills, Night Sweats Constitutional: Denies: Chills, Fever Eyes: Denies: Pain, Vision change ENT: Denies: Ear Pain, Head Aches Skin: Denies: Lesions, Rash Pulmonary: Denies: Cough, Dyspnea Cardiovascular: Denies: Chest Pain, Palpitations Gastrointestinal: Denies: Nausea, Vomiting Genitourinary: Denies: Dysuria, Frequency Hematologic: Denies: Bleeding Excessively, Bruising Musculoskeletal: Reports: Joint Pain (bilateral knee pain) Objective Physical Examination General Exam: Positive: Alert, Cooperative, No Acute Distress Eye Exam: Positive: Conjunctiva & lids normal, EOMI, PERRLA, Negative: Sclera icteric Chest Exam: Positive: Clear to auscultation, Normal air movement Heart Exam: Positive: Normal S1, Normal S2, Rate Normal, Regular Rhythm, Negative: Murmurs, Rubs Abdomen Exam: Positive: Normal bowel sounds, Soft, Negative: Tenderness Extremity Exam: Positive: Edema, Other (bilateral knees noted to have a postoperative scar. No erythema or tenderness on palpation. Patient does have some limitation on flexion and extension of both knees secondary to pain. However there is no obvious joint effusion noted.) Vital Signs/I&O Vital Signs Date Time Temp Pulse Resp B/P Pulse Ox O2 Delivery O2 Flow Rate FiO2 03/31/16 15:13 16 03/31/16 09:00 Room Air 03/31/16 06:00 97.9 103 111/62 90 03/29/16 14:00 2.0 I&O- Last 24 Hours up to 6 AM 03/31/16 06:00 Intake Total 2400 ml Output Total 0 ml Balance 2400 ml FREEDOM MIRANDA MD Mar 31, 2016 15:52
[2016-03-31 22:00] VITALS: BP 128/58
[2016-03-31] MEDS: NORTRIPTYLINE 25 MG CAP PO SCH (22:45)
[2016-04-01] MEDS: HYDROmorphone (DILAUDID) 4 MG TAB PO PRN ×3 (05:29→23:00)
[2016-04-01 06:00] VITALS: BP 131/75
[2016-04-01 06:51] LABS: MEAN CORPUSCULAR HEMOGLOBIN 26.2 pg (27.0-33.0); MEAN CORPUSCULAR HGB CONC 30.2 g/dl (32.0-36.5); MEAN CORPUSCULAR VOLUME 86.7 fl (80.0-96.0); RED CELL DISTRIBUTION WIDTH 17.5 % (11.5-14.5); WHITE BLOOD COUNT 4.6 K/mm3 (4.0-10.0)
[2016-04-01 07:05] LABS: ANION GAP 5 MEQ/L (8-16); BLOOD UREA NITROGEN 16 MG/DL (7-18); CALCIUM LEVEL 8.8 MG/DL (8.5-10.1); CARBON DIOXIDE LEVEL 31 MEQ/L (21-32); CHLORIDE LEVEL 104 MEQ/L (98-107); CREATININE FOR GFR 0.79 MG/DL (0.55-1.02); GLOMERULAR FILTRATION RATE > 60.0 (>58); GLUCOSE, FASTING 79 MG/DL (70-105); SODIUM LEVEL 140 MEQ/L (136-145)
[2016-04-01] MEDS: LORazepam 1 MG TAB PO PRN (07:55)
[2016-04-01] MEDS: SYMBICORT 160/4.5MCG INHALER 6GM INH SCH ×2 (08:00→19:28)
[2016-04-01] MEDS: hydrOXYzine 50 MG TAB PO SCH ×2 (09:00→20:04)
[2016-04-01] MEDS: FERROUS SULFATE 325MG TAB PO SCH (10:22)
[2016-04-01] MEDS: MORPHINE 30 MG TAB **MSIR PO SCH ×3 (10:23→20:08)
[2016-04-01] MEDS: PARoxetine 20 MG TAB PO SCH (10:23)
[2016-04-01] MEDS: GABAPENTIN 400 MG CAP PO SCH ×3 (10:23→20:06)
[2016-04-01] MEDS: DOCUSATE SODIUM 100 MG CAP PO SCH ×2 (10:23→20:04)
[2016-04-01] MEDS: tiZANidine 4 MG TAB PO SCH ×3 (10:24→20:06)
--- NOTE | 2016-04-01 12:39 | IPNPDOC ---
Assessment/Plan Date Seen The patient was seen on 04/01/16. Problems Problems: (1) Bilateral knee pain Status: Chronic Problem Text: Patient currently on morphine sulfate 30 mg 3 times a day, and Dilaudid 4 mg by mouth every 4 hours The patient was seen by pain management here and they have recommended her to taper off some of these medications as there is a concern for her respiratory status and possible underlying sleep apnea The patient is not established in this community and has been receiving her pain medications from a physician in the [facility], from where she recently just moved from.. I am hesitant to increase the patient's narcotic medication doses given the fact that she is already on very high doses of narcotic medication We will continue to have the patient work with physical therapy while trying to optimize her pain control. (2) Gait instability Status: Chronic Response to Treatment: Stable Problem Text: Physical therapy on board. (3) Morbidly obese Status: Chronic Response to Treatment: Stable Problem Text: I did discuss the need for the patient to lose weight in an effort to gain more mobility (4) Chronic pain Status: Chronic Problem Text: Pain management input noted. (5) Depression Status: Chronic Problem Text: Continue paroxetine. Plan / VTE VTE Prophylaxis Ordered?: Yes Subjective Review of Systems CC/HPI The patient is a 45-year-old female admitted with a reason for visit of Bilateral Knee Pain. General: Denies: Chills, Night Sweats Constitutional: Denies: Chills, Fever Eyes: Denies: Pain, Vision change ENT: Denies: Ear Pain, Head Aches Skin: Denies: Lesions, Rash Pulmonary: Denies: Cough, Dyspnea Cardiovascular: Denies: Chest Pain, Palpitations Gastrointestinal: Denies: Nausea, Vomiting Hematologic: Denies: Bleeding Excessively, Bruising Objective Physical Examination General Exam: Positive: Alert, Cooperative, No Acute Distress Eye Exam: Positive: Conjunctiva & lids normal, EOMI, PERRLA, Negative: Sclera icteric Chest Exam: Positive: Clear to auscultation, Normal air movement Heart Exam: Positive: Normal S1, Normal S2, Rate Normal, Regular Rhythm, Negative: Murmurs, Rubs Abdomen Exam: Positive: Normal bowel sounds, Soft, Negative: Tenderness Extremity Exam: Positive: Edema, Other (bilateral knees noted to have a postoperative scar. No erythema or tenderness on palpation. Patient does have some limitation on flexion and extension of both knees secondary to pain. However there is no obvious joint effusion noted.) Vital Signs/I&O Vital Signs Date Time Temp Pulse Resp B/P Pulse Ox O2 Delivery O2 Flow Rate FiO2 04/01/16 11:00 18 Room Air 04/01/16 06:00 98.1 94 131/75 92 03/29/16 14:00 2.0 I&O- Last 24 Hours up to 6 AM 04/01/16 06:00 Intake Total 720 ml Output Total 0 ml Balance 720 ml Laboratory Data Labs 24H Laboratory Tests 2 04/01/16 06:16: Anion Gap 5L, Blood Urea Nitrogen 16, Creatinine 0.79, Sodium Level 140, Potassium Level 4.0, Chloride Level 104, Carbon Dioxide Level 31, Calcium Level 8.8, Glomerular Filtration Rate > 60.0 CBC/BMP Laboratory Tests 04/01/16 06:16 Calcium Level 8.8, Red Blood Count 3.84 L, Mean Corpuscular Volume 86.7, Mean Corpuscular Hemoglobin 26.2 L, Mean Corpuscular Hemoglobin Concent 30.2 L, Red Cell Distribution Width 17.5 H FREDEOM MIRANDA MD Apr 01, 2016 12:39
[2016-04-01 14:00] VITALS: BP 111/70
[2016-04-01] MEDS: HEPARIN SOD (PORCINE) 5000 UNITS/ML VIAL SQ SCH ×2 (14:00→22:59)
[2016-04-01] MEDS: MIRALAX *UNIT DOSE* 17GM PACKET PO PRN (16:02)
[2016-04-01] MEDS: NORTRIPTYLINE 25 MG CAP PO SCH (20:07)
[2016-04-01 22:00] VITALS: BP 112/56
[2016-04-01] MEDS: zolPIDEM TARTRATE 5 MG TAB PO SCH (22:58)
[2016-04-02] MEDS: HYDROmorphone (DILAUDID) 4 MG TAB PO PRN ×3 (03:51→19:38)
[2016-04-02] MEDS: HEPARIN SOD (PORCINE) 5000 UNITS/ML VIAL SQ SCH ×3 (05:08→21:58)
[2016-04-02] MEDS: LORazepam 1 MG TAB PO PRN ×4 (05:10→19:38)
[2016-04-02 06:00] VITALS: BP 116/51
[2016-04-02] MEDS: SYMBICORT 160/4.5MCG INHALER 6GM INH SCH ×2 (07:23→20:12)
[2016-04-02 07:39] LABS: MEAN CORPUSCULAR HEMOGLOBIN 26.7 pg (27.0-33.0); MEAN CORPUSCULAR HGB CONC 30.9 g/dl (32.0-36.5); MEAN CORPUSCULAR VOLUME 86.5 fl (80.0-96.0); RED CELL DISTRIBUTION WIDTH 17.6 % (11.5-14.5); WHITE BLOOD COUNT 5.3 K/mm3 (4.0-10.0)
[2016-04-02 08:04] LABS: ANION GAP 8 MEQ/L (8-16); BLOOD UREA NITROGEN 19 MG/DL (7-18); CALCIUM LEVEL 8.4 MG/DL (8.5-10.1); CARBON DIOXIDE LEVEL 29 MEQ/L (21-32); CHLORIDE LEVEL 104 MEQ/L (98-107); CREATININE FOR GFR 0.76 MG/DL (0.55-1.02); GLOMERULAR FILTRATION RATE > 60.0 (>58); GLUCOSE, FASTING 96 MG/DL (70-105); POTASSIUM SERUM 4.4 MEQ/L (3.5-5.1); SODIUM LEVEL 141 MEQ/L (136-145)
[2016-04-02] MEDS: hydrOXYzine 50 MG TAB PO SCH ×3 (09:00→21:57)
[2016-04-02] MEDS: FERROUS SULFATE 325MG TAB PO SCH (09:24)
[2016-04-02] MEDS: DOCUSATE SODIUM 100 MG CAP PO SCH ×2 (09:24→21:58)
[2016-04-02] MEDS: GABAPENTIN 400 MG CAP PO SCH ×3 (09:24→21:57)
[2016-04-02] MEDS: tiZANidine 4 MG TAB PO SCH ×3 (09:24→21:57)
[2016-04-02] MEDS: MORPHINE 30 MG TAB **MSIR PO SCH ×3 (09:25→21:58)
[2016-04-02] MEDS: PARoxetine 20 MG TAB PO SCH (09:25)
[2016-04-02 14:00] VITALS: BP 125/69
--- NOTE | 2016-04-02 14:12 | IPNPDOC ---
Assessment/Plan Date Seen The patient was seen on 04/02/16. Problems Problems: (1) Bilateral knee pain Status: Chronic Problem Text: Patient currently on morphine sulfate 30 mg 3 times a day, and Dilaudid 4 mg by mouth every 4 hours The patient was seen by pain management here and they have recommended her to taper off some of these medications as there is a concern for her respiratory status and possible underlying sleep apnea The patient is not established in this community and has been receiving her pain medications from a physician in the [facility], from where she recently just moved from.. I am hesitant to increase the patient's narcotic medication doses given the fact that she is already on very high doses of narcotic medication We will continue to have the patient work with physical therapy while trying to optimize her pain control. (2) Breast mass in female Status: Acute Problem Text: Left Breast mass palpated at the 2 o'clock position 2 cm from the areolar area. No nipple inversion or discharge Patient states that her last mammogram was 3 years ago and she has never had a abnormal reading. Patient states she does have a family history of breast cancer in her mother and grandmother diagnosed in their 70s. We will order a diagnostic mammogram for further evaluation. (3) Gait instability Status: Chronic Response to Treatment: Stable Problem Text: Physical therapy on board. (4) Morbidly obese Status: Chronic Response to Treatment: Stable Problem Text: I did discuss the need for the patient to lose weight in an effort to gain more mobility (5) Chronic pain Status: Chronic Problem Text: Pain management input noted. (6) Depression Status: Chronic Problem Text: Continue paroxetine. Plan / VTE VTE Prophylaxis Ordered?: Yes Subjective Review of Systems CC/HPI The patient is a 45-year-old female admitted with a reason for visit of Bilateral Knee Pain. General: Denies: Chills, Night Sweats Constitutional: Denies: Chills, Fever Eyes: Denies: Pain, Vision change ENT: Denies: Ear Pain, Head Aches Skin: Denies: Lesions, Rash Pulmonary: Denies: Cough, Dyspnea Cardiovascular: Denies: Chest Pain, Palpitations Gastrointestinal: Denies: Nausea, Vomiting Objective Physical Examination General Exam: Positive: Alert, Cooperative, No Acute Distress Eye Exam: Positive: Conjunctiva & lids normal, EOMI, PERRLA, Negative: Sclera icteric Chest Exam: Positive: Clear to auscultation, Normal air movement, Other (left breast examined, small 1 cm x 1 cm breast mass/tissue palpated at the 2 o'clock position 2 cm from the area over surface. No tenderness on palpation, no nipple discharge or inversion noted.) Heart Exam: Positive: Normal S1, Normal S2, Rate Normal, Regular Rhythm, Negative: Murmurs, Rubs Abdomen Exam: Positive: Normal bowel sounds, Soft, Negative: Tenderness Extremity Exam: Positive: Edema, Other (bilateral knees noted to have a postoperative scar. No erythema or tenderness on palpation. Patient does have some limitation on flexion and extension of both knees secondary to pain. However there is no obvious joint effusion noted.) Vital Signs/I&O Vital Signs Date Time Temp Pulse Resp B/P Pulse Ox O2 Delivery O2 Flow Rate FiO2 04/02/16 12:36 20 Room Air 04/02/16 06:00 98.0 95 116/51 97 03/29/16 14:00 2.0 I&O- Last 24 Hours up to 6 AM 04/02/16 05:59 Intake Total 540 ml Output Total 550 ml Balance -10 ml Laboratory Data Labs 24H Laboratory Tests 2 04/02/16 07:16: Anion Gap 8, Blood Urea Nitrogen 19H, Creatinine 0.76, Sodium Level 141, Potassium Level 4.4, Chloride Level 104, Carbon Dioxide Level 29, Calcium Level 8.4L, Glomerular Filtration Rate > 60.0 CBC/BMP Laboratory Tests 04/02/16 07:16 Calcium Level 8.4 L, Red Blood Count 3.80 L, Mean Corpuscular Volume 86.5, Mean Corpuscular Hemoglobin 26.7 L, Mean Corpuscular Hemoglobin Concent 30.9 L, Red Cell Distribution Width 17.6 H FREEDOM MIRANDA MD Apr 02, 2016 14:12
[2016-04-02] MEDS: zolPIDEM TARTRATE 5 MG TAB PO SCH (21:00)
[2016-04-02] MEDS: MICONAZOLE-7 VAGINAL 2% CREAM 47.7 GM PV SCH (21:00)
[2016-04-02] MEDS: NORTRIPTYLINE 25 MG CAP PO SCH (21:57)
[2016-04-02 22:00] VITALS: BP 116/57
[2016-04-03] MEDS: HYDROmorphone (DILAUDID) 4 MG TAB PO PRN ×3 (03:23→22:53)
[2016-04-03] MEDS: LORazepam 1 MG TAB PO PRN ×3 (04:04→12:54)
[2016-04-03 06:00] VITALS: BP 113/54
[2016-04-03] MEDS: HEPARIN SOD (PORCINE) 5000 UNITS/ML VIAL SQ SCH ×3 (06:02→20:14)
[2016-04-03] MEDS: SYMBICORT 160/4.5MCG INHALER 6GM INH SCH ×2 (07:48→19:31)
[2016-04-03] MEDS: GABAPENTIN 400 MG CAP PO SCH ×3 (08:13→20:14)
[2016-04-03] MEDS: PARoxetine 20 MG TAB PO SCH (08:14)
[2016-04-03] MEDS: DOCUSATE SODIUM 100 MG CAP PO SCH ×2 (08:14→20:14)
[2016-04-03] MEDS: hydrOXYzine 50 MG TAB PO SCH ×3 (08:14→20:00)
[2016-04-03] MEDS: FERROUS SULFATE 325MG TAB PO SCH (08:14)
[2016-04-03] MEDS: tiZANidine 4 MG TAB PO SCH ×3 (08:14→20:15)
[2016-04-03] MEDS: MORPHINE 30 MG TAB **MSIR PO SCH ×3 (08:15→20:15)
--- NOTE | 2016-04-03 10:44 | IPNPDOC ---
Assessment/Plan Date Seen The patient was seen on 04/03/16. Problems Problems: (1) Bilateral knee pain Status: Chronic Problem Text: The patient was seen by pain management here and they have recommended her to taper off the heavy narcotics that she is currently on as there is a concern for her respiratory status and possible underlying sleep apnea The patient is not established in this community and had been receiving her pain medications from a physician in the [facility] area, from where she recently just moved from.. I am hesitant to increase the patient's narcotic medication doses given the fact that she is already on very high doses of narcotic medication We will continue to have the patient work with physical therapy while trying to optimize her pain control. (2) Breast mass in female Status: Acute Problem Text: Left Breast mass palpated at the 2 o'clock position 2 cm from the areolar area. No nipple inversion or discharge Patient states that her last mammogram was 3 years ago and she has never had a abnormal reading. Patient states she does have a family history of breast cancer in her mother and grandmother diagnosed in their 70s. Patient unable to tolerate Mammogram due to her inability to stand for long periods of time--she states that she will attempt to have the test done again We will consider an U/S of the Breast instead if the patient continues to have difficulty standing. (3) Gait instability Status: Chronic Response to Treatment: Stable Problem Text: Physical therapy on board. (4) Morbidly obese Status: Chronic Response to Treatment: Stable Problem Text: I did discuss the need for the patient to lose weight in an effort to gain more mobility (5) Chronic pain Status: Chronic Problem Text: Pain management input noted. We will attempt to down-titrate the patient's pain med doses here. (6) Depression Status: Chronic Problem Text: Continue paroxetine. Plan / VTE VTE Prophylaxis Ordered?: Yes Subjective Review of Systems CC/HPI The patient is a 45-year-old female admitted with a reason for visit of Bilateral Knee Pain. General: Denies: Chills, Night Sweats Constitutional: Denies: Chills, Fever Eyes: Denies: Pain, Vision change ENT: Denies: Ear Pain, Head Aches Skin: Denies: Lesions, Rash Pulmonary: Denies: Cough, Dyspnea Cardiovascular: Denies: Chest Pain, Palpitations Gastrointestinal: Denies: Abdominal Pain, Nausea, Vomiting Hematologic: Denies: Bleeding Excessively, Bruising Objective Physical Examination General Exam: Positive: Alert, Cooperative, No Acute Distress Eye Exam: Positive: Conjunctiva & lids normal, EOMI, PERRLA, Negative: Sclera icteric Chest Exam: Positive: Clear to auscultation, Normal air movement, Other (left breast examined, small 1 cm x 1 cm breast mass/tissue palpated at the 2 o'clock position 2 cm from the area over surface. No tenderness on palpation, no nipple discharge or inversion noted.) Heart Exam: Positive: Normal S1, Normal S2, Rate Normal, Regular Rhythm, Negative: Murmurs, Rubs Abdomen Exam: Positive: Normal bowel sounds, Soft, Negative: Tenderness Extremity Exam: Positive: Edema, Other (bilateral knees noted to have a postoperative scar. No erythema or tenderness on palpation. Patient does have some limitation on flexion and extension of both knees secondary to pain. However there is no obvious joint effusion noted.) Vital Signs/I&O Vital Signs Date Time Temp Pulse Resp B/P Pulse Ox O2 Delivery O2 Flow Rate FiO2 04/03/16 08:15 20 04/03/16 06:00 98.1 98 113/54 87 Room Air 03/29/16 14:00 2.0 I&O- Last 24 Hours up to 6 AM 04/03/16 06:00 Intake Total 1920 ml Output Total 0 ml Balance 1920 ml FREEDOM MIRANDA MD Apr 03, 2016 10:44
[2016-04-03 14:00] VITALS: BP 127/70
[2016-04-03] MEDS: MIRALAX *UNIT DOSE* 17GM PACKET PO PRN (16:25)
[2016-04-03] MEDS ORDERED: HYDROmorphone (DILAUDID) 4 MG TAB PO PRN (17:30)
[2016-04-03] MEDS: NORTRIPTYLINE 25 MG CAP PO SCH (20:14)
[2016-04-03] MEDS: MICONAZOLE-7 VAGINAL 2% CREAM 47.7 GM PV SCH (20:20)
[2016-04-03 22:00] VITALS: BP 132/67
[2016-04-03] MEDS: zolPIDEM TARTRATE 5 MG TAB PO SCH (22:53)
[2016-04-04] MEDS: LORazepam 1 MG TAB PO PRN ×4 (03:41→21:58)
[2016-04-04 06:00] VITALS: BP 113/63
[2016-04-04] MEDS: HEPARIN SOD (PORCINE) 5000 UNITS/ML VIAL SQ SCH ×3 (06:23→22:01)
[2016-04-04] MEDS: HYDROmorphone (DILAUDID) 4 MG TAB PO PRN ×2 (06:59→19:00)
[2016-04-04] MEDS: SYMBICORT 160/4.5MCG INHALER 6GM INH SCH ×2 (07:57→19:47)
[2016-04-04] MEDS: PARoxetine 20 MG TAB PO SCH (08:51)
[2016-04-04] MEDS: FERROUS SULFATE 325MG TAB PO SCH (08:51)
[2016-04-04] MEDS: DOCUSATE SODIUM 100 MG CAP PO SCH ×2 (08:51→21:58)
[2016-04-04] MEDS: tiZANidine 4 MG TAB PO SCH ×3 (08:51→21:58)
[2016-04-04] MEDS: hydrOXYzine 50 MG TAB PO SCH ×2 (08:52→21:00)
[2016-04-04] MEDS: GABAPENTIN 400 MG CAP PO SCH ×3 (08:52→21:58)
[2016-04-04] MEDS: MORPHINE 30 MG TAB **MSIR PO SCH ×3 (08:52→21:59)
[2016-04-04] MEDS: NAPROXEN 375 MG TAB PO SCH ×2 (10:13→21:59)
[2016-04-04 14:00] VITALS: BP 120/70
--- NOTE | 2016-04-04 14:03 | IPNPDOC ---
Text Note Date of Service The patient was seen on 04/04/16 at 13:52. NOTE Subjective: Patient states she is willing to try naproxen and Tylenol, and decreasing her opioid doses. She was tearful and states she's scared to taper her opioids down, but she is willing to try. She was upset that she thought that people would view her as an opioid addict. Objective: Vitals: (see below) General: No acute distress, laying comfortably in bed. Tearful HEENT: Moist mucous membranes. Neck: No JVD or lymphadenopathy Cardiac: RRR, No murmurs Pulm: Clear to auscultation b/l. No wheezing, rhonchi Abd: NT/ND + BS Ext: No edema or cyanosis. B/l knee surgical incisions clean and dry. No tenderness on palpation, no effusions or erythema. Full ROM of BLE. Not suicidal or homicidal. Labs (see below) Images: CT b/l Knee 04/04/16 Findings: Bilateral metallic knee arthroplasties. Metallic prosthesis is in good position. No fracture or dislocation. Mild suprapatellar knee joint effusion. Moderate suprapatellar knee joint effusion. Bilateral periarticular subcutaneous soft tissue edema and fat stranding. Findings are more prominent on the left side. Impression: Osteopenia. Bilateral metallic knee arthroplasties. Metallic prostheses are in good position. Subcutaneous fat stranding and edema more on the left side. This can be secondary to systemic disease (congestive heart failure, venous stasis etc.), lymphedema versus cellulitis. This is clinical evaluation. No drainable fluid collection. BLE u/s 04/04/16 Impression: No evidence of deep vein thrombosis in either femoral popliteal venous system. Assessment/Plan 1. Chronic knee pain s/p b/l knee replacement - patient states she has been on opioids for many years. She has been on high doses of opioids. Pain management has been consulted with recommendations to taper down and ultimately discontinue her opioids. Patient was initially tearful and resistant however understands that tapering these opioids will ultimately be beneficial for her respiratory status. She is agreeable to naproxen and Tylenol. We'll continue her current opioid regimen with plan to taper the Dilaudid tomorrow. CT of the bilateral knees (see above) sees. Patient states she's unable to get MRIs. She is willing to work with physical therapy at this point. 2. Questionable breast mass- previously noted at the 2 o'clock position, being 2 cm from the areola. Patient was unable to tolerate a mammogram. We'll order breast ultrasound. 3. Morbid obesity with gait instability - we'll have physical therapy on board 4. Depression- continue paroxetine - we will obtain psychiatric consultation. DVT prophy: Heparin SQ VS,Fishbone, I+O VS, Fishbone, I+O Vital Signs Date Time Temp Pulse Resp B/P Pulse Ox O2 Delivery O2 Flow Rate FiO2 04/04/16 09:50 18 Room Air 04/04/16 06:00 98.0 92 113/63 91 03/29/16 14:00 2.0 I&O- Last 24 Hours up to 6 AM 04/04/16 06:00 Intake Total 1564 ml Output Total 1 ml Balance 1563 ml SONI MCNEIL MD Apr 04, 2016 14:03
[2016-04-04] MEDS: MICONAZOLE-7 VAGINAL 2% CREAM 47.7 GM PV SCH (21:00)
[2016-04-04] MEDS: zolPIDEM TARTRATE 5 MG TAB PO SCH (21:58)
[2016-04-04] MEDS: NORTRIPTYLINE 25 MG CAP PO SCH (21:58)
[2016-04-04 22:00] VITALS: BP 116/70
[2016-04-04] MEDS: MIRALAX *UNIT DOSE* 17GM PACKET PO PRN (22:11)
[2016-04-05] MEDS: HEPARIN SOD (PORCINE) 5000 UNITS/ML VIAL SQ SCH ×3 (05:27→21:36)
[2016-04-05] MEDS: HYDROmorphone (DILAUDID) 4 MG TAB PO PRN (05:28)
[2016-04-05] MEDS: MIRALAX *UNIT DOSE* 17GM PACKET PO PRN ×3 (05:31→23:01)
[2016-04-05] MEDS: LORazepam 1 MG TAB PO PRN ×2 (05:35→11:17)
[2016-04-05 06:00] VITALS: BP 106/58
[2016-04-05 06:28] LABS: MEAN CORPUSCULAR HEMOGLOBIN 25.7 pg (27.0-33.0); MEAN CORPUSCULAR HGB CONC 29.5 g/dl (32.0-36.5); MEAN CORPUSCULAR VOLUME 87.2 fl (80.0-96.0); PLATELET COUNT, AUTOMATED 193 k/mm3 (150-450); RED CELL DISTRIBUTION WIDTH 18.6 % (11.5-14.5); WHITE BLOOD COUNT 4.3 K/mm3 (4.0-10.0)
[2016-04-05 06:29] LABS: DIFF SLIDE NUMBER 93
[2016-04-05 06:41] LABS: ALBUMIN 2.4 GM/DL (3.2-5.2); ALBUMIN/GLOBULIN RATIO 0.71 (1.00-1.93); ALKALINE PHOSPHATASE 155 U/L (45-117); ALT/SGPT 10 U/L (12-78); ANION GAP 8 MEQ/L (8-16); AST/SGOT 11 U/L (15-37); BILIRUBIN,TOTAL 0.4 MG/DL (0.2-1.0); BLOOD UREA NITROGEN 18 MG/DL (7-18); CALCIUM LEVEL 8.3 MG/DL (8.5-10.1); CARBON DIOXIDE LEVEL 27 MEQ/L (21-32); CHLORIDE LEVEL 109 MEQ/L (98-107); CREATININE FOR GFR 0.93 MG/DL (0.55-1.02); GLOMERULAR FILTRATION RATE > 60.0 (>58); GLUCOSE, FASTING 89 MG/DL (70-105); POTASSIUM SERUM 4.2 MEQ/L (3.5-5.1); SODIUM LEVEL 144 MEQ/L (136-145); TOTAL PROTEIN 5.8 GM/DL (6.4-8.2)
[2016-04-05] MEDS: SYMBICORT 160/4.5MCG INHALER 6GM INH SCH ×2 (08:04→19:33)
[2016-04-05 08:24] LABS: BANDS 2 % (< 11); BASOPHILS 2 % (0-4); EOSINOPHILS 11 % (0-5)
[2016-04-05 08:26] LABS: HYPOCHROMASIA 2+
[2016-04-05 08:27] LABS: ANISOCYTOSIS 2+
[2016-04-05] MEDS: PARoxetine 20 MG TAB PO SCH (10:31)
[2016-04-05] MEDS: tiZANidine 4 MG TAB PO SCH ×3 (10:32→21:37)
[2016-04-05] MEDS: MORPHINE 30 MG TAB **MSIR PO SCH ×3 (10:32→21:38)
[2016-04-05] MEDS: DOCUSATE SODIUM 100 MG CAP PO SCH ×2 (10:32→21:37)
[2016-04-05] MEDS: hydrOXYzine 50 MG TAB PO SCH ×2 (10:33→21:39)
[2016-04-05] MEDS: GABAPENTIN 400 MG CAP PO SCH ×3 (10:33→21:36)
[2016-04-05] MEDS: FERROUS SULFATE 325MG TAB PO SCH (10:33)
[2016-04-05] MEDS: NAPROXEN 375 MG TAB PO SCH ×2 (10:33→21:40)
--- NOTE | 2016-04-05 13:46 | IPNPDOC ---
Text Note Date of Service The patient was seen on 04/05/16 at 13:44. NOTE Subjective: States she feels well. Would like miralax three times a day for her constipation. Objective: Vitals: (see below) General: No acute distress, laying comfortably in bed. Tearful HEENT: Moist mucous membranes. Neck: No JVD or lymphadenopathy Cardiac: RRR, No murmurs Pulm: Clear to auscultation b/l. No wheezing, rhonchi Abd: NT/ND + BS Ext: No edema or cyanosis. B/l knee surgical incisions clean and dry. No tenderness on palpation, no effusions or erythema. Full ROM of BLE. Not suicidal or homicidal. Labs (see below) Images: CT b/l Knee 04/04/16 Findings: Bilateral metallic knee arthroplasties. Metallic prosthesis is in good position. No fracture or dislocation. Mild suprapatellar knee joint effusion. Moderate suprapatellar knee joint effusion. Bilateral periarticular subcutaneous soft tissue edema and fat stranding. Findings are more prominent on the left side. Impression: Osteopenia. Bilateral metallic knee arthroplasties. Metallic prostheses are in good position. Subcutaneous fat stranding and edema more on the left side. This can be secondary to systemic disease (congestive heart failure, venous stasis etc.), lymphedema versus cellulitis. This is clinical evaluation. No drainable fluid collection. BLE u/s 04/04/16 Impression: No evidence of deep vein thrombosis in either femoral popliteal venous system. Assessment/Plan 1. Chronic knee pain s/p b/l knee replacement - patient states she has been on opioids for many years. She has been on high doses of opioids. Pain management has been consulted with recommendations to taper down and ultimately discontinue her opioids. She is agreeable to naproxen and Tylenol. We'll continue her current opioid regimen with plan to taper the Dilaudid today. CT of the bilateral knees (see above) sees. Patient states she's unable to get MRIs. She is willing to work with physical therapy at this point. 2. Questionable breast mass- previously noted at the 2 o'clock position, being 2 cm from the areola. Patient was unable to tolerate a mammogram. Breast ultrasound pending. 3. Morbid obesity with gait instability - we'll have physical therapy on board 4. Depression- continue paroxetine - we will obtain psychiatric consultation. 5. Constipation - increase miralax dose. DVT prophy: Heparin SQ VS,Fishbone, I+O VS, Fishbone, I+O Laboratory Tests 04/05/16 05:57 Calcium Level 8.3 L, Aspartate Amino Transf (AST/SGOT) 11 L, Alanine Aminotransferase (ALT/SGPT) 10 L, Alkaline Phosphatase 155 H, Total Bilirubin 0.4, Total Protein 5.8 L, Albumin 2.4 L, Red Blood Count 3.99 L, Mean Corpuscular Volume 87.2, Mean Corpuscular Hemoglobin 25.7 L, Mean Corpuscular Hemoglobin Concent 29.5 L, Red Cell Distribution Width 18.6 H Vital Signs Date Time Temp Pulse Resp B/P Pulse Ox O2 Delivery O2 Flow Rate FiO2 04/05/16 11:24 Room Air 04/05/16 11:02 18 04/05/16 06:00 96.7 61 106/58 91 I&O- Last 24 Hours up to 6 AM 04/05/16 06:00 Intake Total 3080 ml Output Total 125 ml Balance 2955 ml SONI MCNEIL MD Apr 05, 2016 13:46
[2016-04-05 14:00] VITALS: BP 127/71
[2016-04-05] MEDS: ONDANSETRON 4 MG TAB (S0181) PO PRN (14:45)
--- NOTE | 2016-04-05 15:38 | REP ---
Focused left breast sonography: History: Left breast mass present times 1-2 weeks. Positive family history of breast carcinoma. The patient reports that her last mammography was done in 2013. Findings: The palpable area at 11 o'clock in the left breast is scanned sonographically. There is a superficial hyperechoic area within which is a anechoic cystic area with enhanced through transmission. The cystic area measures 0.9 x 0.6 x 0.7 cm. This is 11 cm from the nipple. Hyperechoic area surrounding this appears to be inflamed fat. The lesion is most compatible with an area of fat necrosis. Further correlation with mammography should be considered. Impression: BIRADS category 2 benign focused left breast sonography. Area of probable fat necrosis seen at the site of the palpable lump. Consider bilateral screening mammography and diagnostic imaging of the left breast mammographically. The patient's last mammography was 2013. Signed by Antwan Diaz MD 04/05/2016 05:40 P
[2016-04-05] MEDS: NORTRIPTYLINE 25 MG CAP PO SCH (21:37)
[2016-04-05] MEDS: MICONAZOLE-7 VAGINAL 2% CREAM 47.7 GM PV SCH (21:40)
[2016-04-05 22:00] VITALS: BP 109/66
[2016-04-05] MEDS: zolPIDEM TARTRATE 5 MG TAB PO SCH (23:01)
[2016-04-06] MEDS: HYDROmorphone (DILAUDID) 4 MG TAB PO PRN (03:41)
[2016-04-06] MEDS: HEPARIN SOD (PORCINE) 5000 UNITS/ML VIAL SQ SCH ×3 (05:16→21:07)
[2016-04-06] MEDS: LORazepam 1 MG TAB PO PRN ×3 (05:16→21:09)
[2016-04-06 06:00] VITALS: BP 123/89
[2016-04-06] MEDS: FERROUS SULFATE 325MG TAB PO SCH (08:04)
[2016-04-06] MEDS: MORPHINE 30 MG TAB **MSIR PO SCH ×3 (08:06→21:08)
[2016-04-06] MEDS: hydrOXYzine 50 MG TAB PO SCH ×3 (08:07→21:10)
[2016-04-06] MEDS: tiZANidine 4 MG TAB PO SCH ×3 (08:07→21:08)
[2016-04-06] MEDS: NAPROXEN 375 MG TAB PO SCH ×2 (08:07→21:09)
[2016-04-06] MEDS: DOCUSATE SODIUM 100 MG CAP PO SCH ×2 (08:08→21:09)
[2016-04-06] MEDS: PARoxetine 20 MG TAB PO SCH (08:08)
[2016-04-06] MEDS: MIRALAX *UNIT DOSE* 17GM PACKET PO PRN ×2 (08:08→21:08)
[2016-04-06] MEDS: GABAPENTIN 400 MG CAP PO SCH ×3 (08:08→21:08)
[2016-04-06 08:12] LABS: MEAN CORPUSCULAR HEMOGLOBIN 25.2 pg (27.0-33.0); MEAN CORPUSCULAR HGB CONC 28.6 g/dl (32.0-36.5); MEAN CORPUSCULAR VOLUME 88.4 fl (80.0-96.0); PLATELET COUNT, AUTOMATED 208 k/mm3 (150-450); RED CELL DISTRIBUTION WIDTH 18.6 % (11.5-14.5); WHITE BLOOD COUNT 7.2 K/mm3 (4.0-10.0)
[2016-04-06 08:13] LABS: ALBUMIN 2.5 GM/DL (3.2-5.2); ALBUMIN/GLOBULIN RATIO 0.68 (1.00-1.93); ALKALINE PHOSPHATASE 151 U/L (45-117); ALT/SGPT 11 U/L (12-78); ANION GAP 7 MEQ/L (8-16); AST/SGOT 16 U/L (15-37); BILIRUBIN,TOTAL 0.3 MG/DL (0.2-1.0); BLOOD UREA NITROGEN 25 MG/DL (7-18); CALCIUM LEVEL 8.5 MG/DL (8.5-10.1); CARBON DIOXIDE LEVEL 29 MEQ/L (21-32); CHLORIDE LEVEL 108 MEQ/L (98-107); CREATININE FOR GFR 0.92 MG/DL (0.55-1.02); GLOMERULAR FILTRATION RATE > 60.0 (>58); GLUCOSE, FASTING 92 MG/DL (70-105); MAGNESIUM LEVEL 2.1 MG/DL (1.8-2.4); POTASSIUM SERUM 4.5 MEQ/L (3.5-5.1); SODIUM LEVEL 144 MEQ/L (136-145); TOTAL PROTEIN 6.2 GM/DL (6.4-8.2)
[2016-04-06] MEDS: SYMBICORT 160/4.5MCG INHALER 6GM INH SCH ×2 (08:16→21:16)
[2016-04-06 09:01] LABS: BASOPHILS 1 % (0-4); EOSINOPHILS 17 % (0-5)
[2016-04-06 09:02] LABS: ANISOCYTOSIS 2+; HYPOCHROMASIA 2+
[2016-04-06 09:03] LABS: OVALOCYTES 1+
--- NOTE | 2016-04-06 12:13 | IPNPDOC ---
Text Note Date of Service The patient was seen on 04/06/16 at 11:59. NOTE Subjective: Patient is a 45 year old female with a PMHx of morbid obesity, anxiety/ depression, chronic back pain, migraine headache, HONORIO, YASMANI - not qualified for CPAP, fibromyalgia, bilateral osteoarthritis of the knees - s/p B/L knee replacement (in [place]), who presented to [facility] on 03/26/16 for worsening knee pain. After her surgery she was transferred to a rehabilitation center, but left AMA. Patient was seen and examined at the bedside. She reports significant pain and is unwilling to make attempts with physical therapy until she gets pain medications. Objective: Vitals (See below) General: Sitting up in bed, no acute distress, comfortable, AAOx3 HEENT: NC, AT CVS: RRR, +S1S2 Lungs: Fair air entry b/l, -w/r/r Abdomen: Obese, Soft, ND, NT, +BSx4 Extremities: +PPx4, -edema, -calf tenderness, b/l knee surgical scars present ( no evidence of erythema, warmth, or tenderness) Assessment and plan: 1. Bilateral osteoarthritis of the knees - s/p bilateral knee replacement - Was done in [place], required high dose of pain meds; was transferred to rehab center and left AMA - Pain management was consulted and recommended to taper off opioids - Patient has been unwilling to cooperate with physical therapy sessions - Will continue to taper off opioids; will start with Dilaudid, will keep long acting MS contin for now - Will c/w Naproxen and Tylenol 2. Left breast mass - unable to get mammogram, b/c patient is unwilling to stand - US of breast reveals area of probable fat necrosis - will need outpatient breast mammogram to be completed 3. Constipation - likely 2/2 opioids - will continue to taper off - will c/w miralax 4. Normocytic anemia - likely 2/2 HONORIO - c/w ferrous sulfate 5. Morbid obesity 6. Depression / Anxiety 7. Fibromyalgia 8. Migraine headaches 9. YASMANI - doesn't qualify for CPAP based on records from other facility - will need sleep study performed as outpatient 10. DVT prophylaxis - c/w heparin VS,Fishbone, I+O VS, Fishbone, I+O Laboratory Tests 04/06/16 07:46 Calcium Level 8.5, Aspartate Amino Transf (AST/SGOT) 16, Alanine Aminotransferase (ALT/SGPT) 11 L, Alkaline Phosphatase 151 H, Total Bilirubin 0.3, Total Protein 6.2 L, Albumin 2.5 L, Red Blood Count 4.03, Mean Corpuscular Volume 88.4, Mean Corpuscular Hemoglobin 25.2 L, Mean Corpuscular Hemoglobin Concent 28.6 L, Red Cell Distribution Width 18.6 H, Neutrophils (%) (Auto) , Lymphocytes (%) (Auto) , Monocytes (%) (Auto) , Eosinophils (%) (Auto) , Basophils (%) (Auto) , Neutrophils # (Auto) , Lymphocytes # (Auto) , Monocytes # (Auto) , Eosinophils # (Auto) , Basophils # (Auto) Vital Signs Date Time Temp Pulse Resp B/P Pulse Ox O2 Delivery O2 Flow Rate FiO2 04/06/16 08:09 16 04/06/16 08:00 Room Air 04/06/16 06:00 96.4 92 123/89 92 I&O- Last 24 Hours up to 6 AM 04/06/16 06:00 Intake Total 3025 ml Output Total 50 ml Balance 2975 ml SIGIFREDO CASTILLO MD Apr 06, 2016 12:13
[2016-04-06] MEDS: HYDROmorphone 2 MG TAB PO PRN (13:45)
[2016-04-06 14:00] VITALS: BP 115/67
[2016-04-06] MEDS ORDERED: AQUAPHOR **100GM** OINT TOP PRN (19:00)
[2016-04-06] MEDS: zolPIDEM TARTRATE 5 MG TAB PO SCH (21:00)
[2016-04-06] MEDS: NORTRIPTYLINE 25 MG CAP PO SCH (21:08)
[2016-04-06] MEDS: MICONAZOLE-7 VAGINAL 2% CREAM 47.7 GM PV SCH (21:09)
[2016-04-06 22:00] VITALS: BP 103/57
[2016-04-07] MEDS: HYDROmorphone 2 MG TAB PO PRN ×2 (03:06→14:00)
[2016-04-07 06:00] VITALS: BP 105/63
[2016-04-07] MEDS: HEPARIN SOD (PORCINE) 5000 UNITS/ML VIAL SQ SCH ×3 (06:32→21:54)
[2016-04-07] MEDS: LORazepam 1 MG TAB PO PRN (06:59)
[2016-04-07] MEDS: SYMBICORT 160/4.5MCG INHALER 6GM INH SCH ×2 (07:47→19:47)
--- NOTE | 2016-04-07 07:50 | REP ---
Clinical: Pain and swelling with erythema. Technique: Real time stallworth scale and color Doppler evaluation using linear high frequency transducer. Findings: Ultrasound examination of the right upper extremity deep venous structures including jugular, subclavian, axillary, brachial, basilic, and cephalic veins and an straits normal color flow, and Doppler wave characteristics without evidence for deep venous thrombosis. Impression: Normal right upper extremity study without evidence for deep venous thrombosis Signed by Adam Tucker MD 04/07/2016 07:41 A
[2016-04-07] MEDS: tiZANidine 4 MG TAB PO SCH ×3 (09:00→21:53)
[2016-04-07] MEDS: FERROUS SULFATE 325MG TAB PO SCH (09:00)
[2016-04-07] MEDS: hydrOXYzine 50 MG TAB PO SCH ×2 (09:00→21:51)
[2016-04-07] MEDS: GABAPENTIN 400 MG CAP PO SCH ×3 (09:00→21:53)
[2016-04-07] MEDS: DOCUSATE SODIUM 100 MG CAP PO SCH ×2 (09:00→21:53)
[2016-04-07] MEDS: PARoxetine 20 MG TAB PO SCH (09:01)
[2016-04-07] MEDS: MORPHINE 30 MG TAB **MSIR PO SCH (09:02)
[2016-04-07] MEDS: NAPROXEN 375 MG TAB PO SCH ×2 (09:03→21:53)
--- NOTE | 2016-04-07 12:17 | IPNPDOC ---
Text Note Date of Service The patient was seen on 04/07/16 at 12:12. NOTE Subjective: Patient is a 45 year old female with a PMHx of morbid obesity, anxiety/ depression, chronic back pain, migraine headache, HONORIO, YASMANI - not qualified for CPAP, fibromyalgia, bilateral osteoarthritis of the knees - s/p B/L knee replacement (in [place]), who presented to [facility] on 03/26/16 for worsening knee pain. After her surgery she was transferred to a rehabilitation center, but left AMA. Nursing has reported that last night (04/06-) she has been saving medications that have been given to her by nursing. Crushing them and using saline flushes to inject herself with them. Patient was seen and examined at the bedside. She notes that this morning she is willing to try with physical therapy. Objective: Vitals (See below) General: Sitting up in bed, no acute distress, comfortable, AAOx3 HEENT: NC, AT CVS: RRR, +S1S2 Lungs: Fair air entry b/l, -w/r/r Abdomen: Obese, Soft, ND, NT, +BSx4 Extremities: +PPx4, -edema, -calf tenderness, b/l knee surgical scars present ( no evidence of erythema, warmth, or tenderness) Assessment and plan: 1. Bilateral osteoarthritis of the knees - s/p bilateral knee replacement - Was done in [place], required high dose of pain meds; was transferred to rehab center and left AMA - Pain management was consulted and recommended to taper off opioids - Patient has been unwilling to cooperate with physical therapy sessions yesterday; however indicated that she is willing to try today - Will continue to taper off opioids; will decrease doses of dilaudid and morphine - Will c/w Naproxen and Tylenol 2. Left breast mass - unable to get mammogram, b/c patient is unwilling to stand - US of breast reveals area of probable fat necrosis - will need outpatient breast mammogram to be completed 3. Right arm erythema and tenderness - possibly 2/2 injection of foreign body - US of upper extremity does not reveal any evidence of DVT - will continue with hot and cold compresses to the arm - pain control with Naproxen only 4. Constipation - likely 2/2 opioids - will continue to taper off - will c/w miralax - will try enema if no releif 5. Normocytic anemia - likely 2/2 HONORIO - c/w ferrous sulfate 6. Morbid obesity 7. Depression / Anxiety 8. Fibromyalgia 9. Migraine headaches 10. YASMANI - doesn't qualify for CPAP based on records from other facility - will need sleep study performed as outpatient 11. DVT prophylaxis - c/w heparin VS,Fishbone, I+O VS, Fishbone, I+O Vital Signs Date Time Temp Pulse Resp B/P Pulse Ox O2 Delivery O2 Flow Rate FiO2 04/07/16 09:32 16 Room Air 04/07/16 06:00 96.9 84 105/63 91 I&O- Last 24 Hours up to 6 AM 04/07/16 05:59 Intake Total 2030 ml Output Total 0 ml Balance 2030 ml SIGIFREDO CASTILLO MD Apr 07, 2016 12:17
[2016-04-07 14:00] VITALS: BP 117/81
[2016-04-07] MEDS: MIRALAX *UNIT DOSE* 17GM PACKET PO PRN (15:29)
[2016-04-07] MEDS ORDERED: BISACODYL 10 MG SUPP PR PRN (15:30)
[2016-04-07] MEDS: MICONAZOLE-7 VAGINAL 2% CREAM 47.7 GM PV SCH (21:51)
[2016-04-07] MEDS: NORTRIPTYLINE 25 MG CAP PO SCH (21:53)
[2016-04-07 22:00] VITALS: BP 128/78
[2016-04-08] MEDS: zolPIDEM TARTRATE 5 MG TAB PO SCH ×2 (00:34→22:07)
[2016-04-08] MEDS: HYDROmorphone 2 MG TAB PO PRN ×3 (02:27→22:17)
[2016-04-08 06:00] VITALS: BP 134/84
[2016-04-08] MEDS: HEPARIN SOD (PORCINE) 5000 UNITS/ML VIAL SQ SCH ×3 (06:31→22:07)
[2016-04-08] MEDS: SYMBICORT 160/4.5MCG INHALER 6GM INH SCH ×2 (08:26→19:58)
[2016-04-08] MEDS ORDERED: MORPHINE 30 MG TAB **MSIR PO PRN (09:00)
[2016-04-08] MEDS: hydrOXYzine 50 MG TAB PO SCH ×3 (09:00→22:06)
[2016-04-08] MEDS: PARoxetine 20 MG TAB PO SCH (10:16)
[2016-04-08] MEDS: tiZANidine 4 MG TAB PO SCH ×3 (10:17→22:06)
[2016-04-08] MEDS: DOCUSATE SODIUM 100 MG CAP PO SCH ×2 (10:17→22:07)
[2016-04-08] MEDS: NAPROXEN 375 MG TAB PO SCH ×2 (10:17→22:07)
[2016-04-08] MEDS: FERROUS SULFATE 325MG TAB PO SCH (10:17)
[2016-04-08] MEDS: GABAPENTIN 400 MG CAP PO SCH ×3 (10:18→22:09)
[2016-04-08] MEDS: MORPHINE 30 MG TAB **MSIR PO PRN (10:24)
--- NOTE | 2016-04-08 10:55 | IPNPDOC ---
Text Note Date of Service The patient was seen on 04/08/16 at 10:53. NOTE Subjective: Patient is a 45 year old female with a PMHx of morbid obesity, anxiety/ depression, chronic back pain, migraine headache, HONORIO, YASMANI - not qualified for CPAP, fibromyalgia, bilateral osteoarthritis of the knees - s/p B/L knee replacement (in [place]), who presented to [facility] on 03/26/16 for worsening knee pain. After her surgery she was transferred to a rehabilitation center, but left AMA. Nursing has reported that last night (04/06-) she has been saving medications that have been given to her by nursing. Crushing them and using saline flushes to inject herself with them. Patient was seen and examined at the bedside. She again notes pain in her legs. Yesterday she noted that she has made some progress with physical therapy and was able to stand at the edge of the bed. Objective: Vitals (See below) General: Sitting up in bed, no acute distress, comfortable, AAOx3 HEENT: NC, AT CVS: RRR, +S1S2 Lungs: Fair air entry b/l, -w/r/r Abdomen: Obese, Soft, ND, NT, +BSx4 Extremities: +PPx4, -edema, -calf tenderness, b/l knee surgical scars present ( no evidence of erythema, warmth, or tenderness) Assessment and plan: 1. Bilateral osteoarthritis of the knees - s/p bilateral knee replacement - Was done in [place], required high dose of pain meds; was transferred to rehab center and left AMA - Pain management was consulted and recommended to taper off opioids - Patient has made some progress with physical therapy - but has a long way to go - Will continue to taper off opioids; will decrease doses of dilaudid and morphine; will completely discontinue by tomorrow - c/w Naproxen and Tylenol 2. Left breast mass - unable to get mammogram, b/c patient is unwilling to stand - US of breast reveals area of probable fat necrosis - will need outpatient breast mammogram to be completed 3. Right arm erythema and tenderness - possibly 2/2 injection of foreign body - US of upper extremity does not reveal any evidence of DVT - will continue with hot and cold compresses to the arm - pain control with Naproxen only 4. Constipation - likely 2/2 opioids - will continue to taper off opioids - has had 2 bowel movements yesterday - s/p Enema, c/w miralax 5. Normocytic anemia - likely 2/2 HONORIO - c/w ferrous sulfate 6. Morbid obesity 7. Depression / Anxiety 8. Fibromyalgia 9. Migraine headaches 10. YASMANI - doesn't qualify for CPAP based on records from other facility - will need sleep study performed as outpatient 11. DVT prophylaxis - c/w heparin VS,Fishbone, I+O VS, Fishbone, I+O Vital Signs Date Time Temp Pulse Resp B/P Pulse Ox O2 Delivery O2 Flow Rate FiO2 04/08/16 10:24 18 04/08/16 06:00 97.8 88 134/84 97 04/07/16 14:30 Room Air I&O- Last 24 Hours up to 6 AM 04/08/16 06:00 Intake Total 1440 ml Output Total 750 ml Balance 690 ml SIGIFREDO CASTILLO MD Apr 08, 2016 10:55
[2016-04-08] MEDS: ONDANSETRON 4 MG TAB (S0181) PO PRN (10:59)
[2016-04-08 14:00] VITALS: BP 132/69
[2016-04-08 22:00] VITALS: BP 131/82
[2016-04-08] MEDS: NORTRIPTYLINE 25 MG CAP PO SCH (22:07)
[2016-04-09] MEDS: MORPHINE 30 MG TAB **MSIR PO PRN (04:32)
[2016-04-09 05:50] VITALS: BP 142/83
[2016-04-09] MEDS: HEPARIN SOD (PORCINE) 5000 UNITS/ML VIAL SQ SCH ×3 (05:51→21:32)
[2016-04-09] MEDS: SYMBICORT 160/4.5MCG INHALER 6GM INH SCH ×2 (08:15→19:24)
[2016-04-09] MEDS: FERROUS SULFATE 325MG TAB PO SCH (08:52)
[2016-04-09] MEDS: DOCUSATE SODIUM 100 MG CAP PO SCH ×2 (08:52→21:31)
[2016-04-09] MEDS: hydrOXYzine 50 MG TAB PO SCH ×2 (08:52→21:31)
[2016-04-09] MEDS: PARoxetine 20 MG TAB PO SCH (08:52)
[2016-04-09] MEDS: NAPROXEN 375 MG TAB PO SCH ×2 (08:52→21:32)
[2016-04-09] MEDS: tiZANidine 4 MG TAB PO SCH ×3 (08:52→21:31)
[2016-04-09] MEDS: GABAPENTIN 400 MG CAP PO SCH ×3 (08:53→21:31)
[2016-04-09] MEDS: ACETAMINOPHEN TAB 650MG DOSE (2X325MG) PO PRN (11:13)
[2016-04-09] MEDS: ONDANSETRON 4 MG TAB (S0181) PO PRN (11:13)
--- NOTE | 2016-04-09 12:31 | IPNPDOC ---
Text Note Date of Service The patient was seen on 04/09/16 at 12:29. NOTE Subjective: Patient is a 45 year old female with a PMHx of morbid obesity, anxiety/ depression, chronic back pain, migraine headache, HONORIO, YASMANI - not qualified for CPAP, fibromyalgia, bilateral osteoarthritis of the knees - s/p B/L knee replacement (in [place]), who presented to [facility] on 03/26/16 for worsening knee pain. After her surgery she was transferred to a rehabilitation center, but left AMA. Nursing has reported that last night (04/06-) she has been saving medications that have been given to her by nursing. Crushing them and using saline flushes to inject herself with them. Patient was seen and examined at the bedside. She was upset when I advised her that all her pain medications have been discontinued today. Objective: Vitals (See below) General: Sitting up in bed, no acute distress, comfortable, AAOx3 HEENT: NC, AT CVS: RRR, +S1S2 Lungs: Fair air entry b/l, -w/r/r Abdomen: Obese, Soft, ND, NT, +BSx4 Extremities: +PPx4, -edema, -calf tenderness, b/l knee surgical scars present ( no evidence of erythema, warmth, or tenderness) Assessment and plan: 1. Bilateral osteoarthritis of the knees - s/p bilateral knee replacement - Was done in [place], required high dose of pain meds; was transferred to rehab center and left AMA - Pain management was consulted and recommended to taper off opioids - Patient has made some progress with physical therapy - but has a long way to go - Today all opioid pain medications have been discontinued - c/w Naproxen and Tylenol 2. Left breast mass - unable to get mammogram, b/c patient is unwilling to stand - US of breast reveals area of probable fat necrosis - will need outpatient breast mammogram to be completed 3. s/p Right arm erythema and tenderness - possibly 2/2 injection of foreign body - US of upper extremity does not reveal any evidence of DVT - c/w hot and cold compresses to the arm PRN - pain control with Naproxen only 4. s/p Constipation - likely 2/2 opioids - has had bowel movements after enema - c/w miralax 5. Normocytic anemia - likely 2/2 HONORIO - c/w ferrous sulfate 6. Morbid obesity 7. Depression / Anxiety 8. Fibromyalgia 9. Migraine headaches 10. YASMANI - doesn't qualify for CPAP based on records from other facility - will need sleep study performed as outpatient 11. DVT prophylaxis - c/w heparin VS,Fishbone, I+O VS, Fishbone, I+O Vital Signs Date Time Temp Pulse Resp B/P Pulse Ox O2 Delivery O2 Flow Rate FiO2 04/09/16 05:50 96.5 84 19 142/83 91 Room Air I&O- Last 24 Hours up to 6 AM 04/09/16 06:00 Intake Total 1560 ml Output Total 850 ml Balance 710 ml SIGIFREDO CASTILLO MD Apr 09, 2016 12:31
[2016-04-09 14:00] VITALS: BP 145/83
[2016-04-09] MEDS: LORazepam 1 MG TAB PO PRN (15:30)
[2016-04-09] MEDS: zolPIDEM TARTRATE 5 MG TAB PO SCH ×2 (21:00→23:37)
[2016-04-09] MEDS: NORTRIPTYLINE 25 MG CAP PO SCH (21:30)
[2016-04-09] MEDS: MIRALAX *UNIT DOSE* 17GM PACKET PO PRN (21:31)
[2016-04-09 22:00] VITALS: BP 129/81
[2016-04-10] MEDS: LORazepam 1 MG TAB PO PRN ×4 (02:05→23:03)
[2016-04-10] MEDS: HEPARIN SOD (PORCINE) 5000 UNITS/ML VIAL SQ SCH ×3 (04:52→21:48)
[2016-04-10 06:00] VITALS: BP 141/86
[2016-04-10] MEDS: SYMBICORT 160/4.5MCG INHALER 6GM INH SCH ×2 (07:17→21:00)
[2016-04-10] MEDS: GABAPENTIN 400 MG CAP PO SCH ×3 (07:23→21:48)
[2016-04-10] MEDS: NAPROXEN 375 MG TAB PO SCH ×2 (07:23→21:49)
[2016-04-10] MEDS: PARoxetine 20 MG TAB PO SCH (07:23)
[2016-04-10] MEDS: DOCUSATE SODIUM 100 MG CAP PO SCH ×2 (07:23→21:00)
[2016-04-10] MEDS: hydrOXYzine 50 MG TAB PO SCH (07:24)
[2016-04-10] MEDS: FERROUS SULFATE 325MG TAB PO SCH (07:24)
[2016-04-10] MEDS: tiZANidine 4 MG TAB PO SCH ×3 (07:24→21:49)
[2016-04-10] MEDS: ONDANSETRON 4 MG TAB (S0181) PO PRN (11:27)
--- NOTE | 2016-04-10 12:17 | IPNPDOC ---
Text Note Date of Service The patient was seen on 04/10/16 at 12:16. NOTE Subjective: Patient is a 45 year old female with a PMHx of morbid obesity, anxiety/ depression, chronic back pain, migraine headache, HONORIO, YASMANI - not qualified for CPAP, fibromyalgia, bilateral osteoarthritis of the knees - s/p B/L knee replacement (in [place]), who presented to [facility] on 03/26/16 for worsening knee pain. After her surgery she was transferred to a rehabilitation center, but left AMA. Nursing has reported that last night (04/06-) she has been saving medications that have been given to her by nursing. Crushing them and using saline flushes to inject herself with them. Patient was seen and examined at the bedside. Patient has noted that she is making progress on her own, is able to ambulate from bed to commode. Is able to walk short distances. Objective: Vitals (See below) General: Sitting up in bed, no acute distress, comfortable, AAOx3 HEENT: NC, AT CVS: RRR, +S1S2 Lungs: Fair air entry b/l, -w/r/r Abdomen: Obese, Soft, ND, NT, +BSx4 Extremities: +PPx4, -edema, -calf tenderness, b/l knee surgical scars present ( no evidence of erythema, warmth, or tenderness) Assessment and plan: 1. Bilateral osteoarthritis of the knees - s/p bilateral knee replacement - Was done in [place], required high dose of pain meds; was transferred to rehab center and left AMA - Pain management was consulted and recommended to taper off opioids; All have been discontinued - Patient continues to make progress with physical therapy - c/w Naproxen and Tylenol 2. Left breast mass - unable to get mammogram, b/c patient is unwilling to stand - US of breast reveals area of probable fat necrosis - will need outpatient breast mammogram to be completed 3. s/p Right arm erythema and tenderness - possibly 2/2 injection of foreign body - US of upper extremity does not reveal any evidence of DVT - c/w hot and cold compresses to the arm PRN - pain control with Naproxen only 4. s/p Constipation - likely 2/2 opioids - has had bowel movements after enema - c/w miralax 5. Normocytic anemia - likely 2/2 HONORIO - c/w ferrous sulfate 6. Morbid obesity 7. Depression / Anxiety 8. Fibromyalgia 9. Migraine headaches 10. YASMANI - doesn't qualify for CPAP based on records from other facility - will need sleep study performed as outpatient 11. DVT prophylaxis - c/w heparin VS,Fishbone, I+O VS, Fishbone, I+O Vital Signs Date Time Temp Pulse Resp B/P Pulse Ox O2 Delivery O2 Flow Rate FiO2 04/10/16 06:00 97.0 75 18 141/86 94 Room Air I&O- Last 24 Hours up to 6 AM 04/10/16 06:00 Intake Total 2160 ml Output Total 1650 ml Balance 510 ml SIGIFREDO CASTILLO MD Apr 10, 2016 12:17
[2016-04-10 14:00] VITALS: BP 147/81
[2016-04-10] MEDS: ACETAMINOPHEN TAB 650MG DOSE (2X325MG) PO PRN (14:07)
[2016-04-10] MEDS: RIZATRIPTAN BENZOATE 10 MG TAB PO PRN (14:52)
[2016-04-10] MEDS: NORTRIPTYLINE 25 MG CAP PO SCH (21:48)
[2016-04-10 22:00] VITALS: BP 151/85
[2016-04-10] MEDS: zolPIDEM TARTRATE 5 MG TAB PO SCH (23:02)
[2016-04-11] MEDS: LORazepam 1 MG TAB PO PRN ×4 (05:28→20:48)
[2016-04-11] MEDS: HEPARIN SOD (PORCINE) 5000 UNITS/ML VIAL SQ SCH ×3 (05:28→21:17)
[2016-04-11 06:00] VITALS: BP 142/85
[2016-04-11] MEDS: SYMBICORT 160/4.5MCG INHALER 6GM INH SCH ×3 (07:50→19:39)
[2016-04-11] MEDS: DOCUSATE SODIUM 100 MG CAP PO SCH ×3 (08:16→20:52)
[2016-04-11] MEDS: PARoxetine 20 MG TAB PO SCH (08:16)
[2016-04-11] MEDS: hydrOXYzine 50 MG TAB PO SCH ×2 (08:16→20:48)
[2016-04-11] MEDS: FERROUS SULFATE 325MG TAB PO SCH (08:16)
[2016-04-11] MEDS: tiZANidine 4 MG TAB PO SCH ×3 (08:16→20:48)
[2016-04-11] MEDS: GABAPENTIN 400 MG CAP PO SCH ×3 (08:16→20:47)
[2016-04-11] MEDS: NAPROXEN 375 MG TAB PO SCH ×2 (08:16→20:48)
[2016-04-11] MEDS: ONDANSETRON 4 MG TAB (S0181) PO PRN (11:34)
--- NOTE | 2016-04-11 13:18 | IPNPDOC ---
Text Note Date of Service The patient was seen on 04/11/16 at 13:15. NOTE Subjective: Patient is a 45 year old female with a PMHx of morbid obesity, anxiety/ depression, chronic back pain, migraine headache, HONORIO, YASMANI - not qualified for CPAP, fibromyalgia, bilateral osteoarthritis of the knees - s/p B/L knee replacement (in [place]), who presented to [facility] on 03/26/16 for worsening knee pain. After her surgery she was transferred to a rehabilitation center, but left AMA. Nursing has reported that last night (04/06-) she has been saving medications that have been given to her by nursing. Crushing them and using saline flushes to inject herself with them. Patient was seen and examined at the bedside. Patient does not have any new complaints today. Objective: Vitals (See below) General: Sitting up in bed, no acute distress, comfortable, AAOx3 HEENT: NC, AT CVS: RRR, +S1S2 Lungs: Fair air entry b/l, -w/r/r Abdomen: Obese, Soft, ND, NT, +BSx4 Extremities: +PPx4, -edema, -calf tenderness, b/l knee surgical scars present ( no evidence of erythema, warmth, or tenderness) Assessment and plan: 1. Bilateral osteoarthritis of the knees - s/p bilateral knee replacement - Was done in [place], required high dose of pain meds; was transferred to rehab center and left AMA - Has been tapered off all narcotics - c/w PT - c/w Naproxen and Tylenol 2. Left breast mass - unable to get mammogram, b/c patient is unwilling to stand - US of breast reveals area of probable fat necrosis - will send for breast mammogram (re: can tolerate standing) 3. s/p Right arm erythema and tenderness - US of upper extremity does not reveal any evidence of DVT 4. s/p Constipation - likely 2/2 opioids - has had bowel movements after enema - c/w miralax 5. Normocytic anemia - likely 2/2 HONORIO - c/w ferrous sulfate 6. Morbid obesity 7. Depression / Anxiety 8. Fibromyalgia 9. Migraine headaches 10. YASMANI - doesn't qualify for CPAP based on records from other facility - will need sleep study performed as outpatient 11. DVT prophylaxis - c/w heparin VS,Fishbone, I+O VS, Fishbone, I+O Vital Signs Date Time Temp Pulse Resp B/P Pulse Ox O2 Delivery O2 Flow Rate FiO2 04/11/16 06:00 97.7 75 19 142/85 95 Room Air I&O- Last 24 Hours up to 6 AM 04/11/16 06:00 Intake Total 900 ml Output Total 1125 ml Balance -225 ml SIGIFREDO CASTILLO MD Apr 11, 2016 13:18
[2016-04-11] MEDS: ACETAMINOPHEN TAB 650MG DOSE (2X325MG) PO PRN ×2 (13:43→18:12)
[2016-04-11 14:00] VITALS: BP 140/78
[2016-04-11] MEDS: RIZATRIPTAN BENZOATE 10 MG TAB PO PRN (16:04)
[2016-04-11] MEDS: NORTRIPTYLINE 25 MG CAP PO SCH (20:48)
[2016-04-11 22:00] VITALS: BP 136/83
[2016-04-11] MEDS: zolPIDEM TARTRATE 5 MG TAB PO SCH (23:47)
[2016-04-12] MEDS: ACETAMINOPHEN TAB 650MG DOSE (2X325MG) PO PRN ×3 (02:43→19:43)
[2016-04-12] MEDS: LORazepam 1 MG TAB PO PRN ×5 (02:43→23:52)
[2016-04-12] MEDS: HEPARIN SOD (PORCINE) 5000 UNITS/ML VIAL SQ SCH ×3 (05:00→22:00)
[2016-04-12 06:00] VITALS: BP 152/82
[2016-04-12] MEDS: SYMBICORT 160/4.5MCG INHALER 6GM INH SCH ×2 (07:42→19:37)
[2016-04-12] MEDS: FERROUS SULFATE 325MG TAB PO SCH ×2 (08:10→08:15)
[2016-04-12] MEDS: amLODIPine 5 MG TAB PO SCH (08:10)
[2016-04-12] MEDS: NAPROXEN 375 MG TAB PO SCH ×2 (08:10→22:48)
[2016-04-12] MEDS: GABAPENTIN 400 MG CAP PO SCH ×3 (08:10→22:47)
[2016-04-12] MEDS: PARoxetine 20 MG TAB PO SCH (08:10)
[2016-04-12] MEDS: hydrOXYzine 50 MG TAB PO SCH ×2 (08:10→22:47)
[2016-04-12] MEDS: tiZANidine 4 MG TAB PO SCH ×3 (08:11→22:48)
[2016-04-12] MEDS: DOCUSATE SODIUM 100 MG CAP PO SCH ×3 (08:11→22:47)
--- NOTE | 2016-04-12 10:59 | REP ---
Digital diagnostic bilateral mammography with CAD: History: Left breast lump for 2 weeks. A skin marker is affixed to the skin at the site of the lump for today's mammography. Correlation is made with left breast focused sonography obtained on April 05, 2016, 1 week ago. This showed evidence of an area of probable fat necrosis 9 mm in greatest diameter at the site of the palpable lump. Mammographic findings: Multiple images were obtained in each projection of each breast. These were necessitated by patient size. In addition, the left breast views are augmented by magnified focal spot compression CC, MLO and true MLO images at the level of the palpable lump. Findings: The left and right breast parenchyma are homogeneously and extensively fat replaced. No dominant density seen mammographically at the site of the palpable lump or elsewhere on either side. No microcalcification, architectural distortion or worrisome skin change is seen. Mammographically, the study is negative. Impression: BIRADS category 1 benign bilateral breast imaging. No mammographic abnormality noted at the site of the palpable lump or elsewhere. Clinical follow-up is advised. If the palpable lump persists, a 6-month followup sonography could be performed. BI-RADS/ACR category 2 mammogram. Benign finding(s). Routine annual screening mammography (for women over age 40). This mammogram was interpreted with the aid of an FDA-approved computer-aided detection system. The patient states she had a clinical breast exam in March 2016. The patient letter being requested is M2. Signed by Antwan Diaz MD 04/12/2016 01:41 P
--- NOTE | 2016-04-12 11:22 | IPNPDOC ---
Text Note Date of Service The patient was seen on 04/12/16 at 11:19. NOTE Subjective: Patient is a 45 year old female with a PMHx of morbid obesity, anxiety/ depression, chronic back pain, migraine headache, HONORIO, YASMANI - not qualified for CPAP, fibromyalgia, bilateral osteoarthritis of the knees - s/p B/L knee replacement (in [place]), who presented to [facility] on 03/26/16 for worsening knee pain. After her surgery she was transferred to a rehabilitation center, but left AMA. Nursing has reported that last night (04/06-) she has been saving medications that have been given to her by nursing. Crushing them and using saline flushes to inject herself with them. Patient was seen and examined at the bedside. Patient notes that her knees have been in severe pain from walking. Objective: Vitals (See below) General: Sitting up in bed, no acute distress, comfortable, AAOx3 HEENT: NC, AT CVS: RRR, +S1S2 Lungs: Fair air entry b/l, -w/r/r Abdomen: Obese, Soft, ND, NT, +BSx4 Extremities: +PPx4, -edema, -calf tenderness, b/l knee surgical scars present ( no evidence of erythema, warmth, or tenderness) Assessment and plan: 1. Bilateral osteoarthritis of the knees - s/p bilateral knee replacement - Was done in [place], required high dose of pain meds; was transferred to rehab center and left AMA - Has been tapered off all narcotics - c/w PT - c/w Naproxen and Tylenol - Will add cold compresses to knee if still in pain - Will continue to avoid opioid narcotics 2. Left breast mass - unable to get mammogram, b/c patient is unwilling to stand - US of breast reveals area of probable fat necrosis - s/p Mammogram 04/12: BIRADS 1 - benign breast imaging; regular screening advised 3. s/p Right arm erythema and tenderness - US of upper extremity does not reveal any evidence of DVT 4. s/p Constipation - likely 2/2 opioids - has had bowel movements after enema - c/w miralax 5. Normocytic anemia - likely 2/2 HONORIO - c/w ferrous sulfate 6. Morbid obesity 7. Depression / Anxiety 8. Fibromyalgia 9. Migraine headaches 10. YASMANI - doesn't qualify for CPAP based on records from other facility - outpatient referral 11. DVT prophylaxis - c/w heparin Disposition: - Awaiting PT clearance - will need to show ability to go up steps VS,Fishbone, I+O VS, Fishbone, I+O Vital Signs Date Time Temp Pulse Resp B/P Pulse Ox O2 Delivery O2 Flow Rate FiO2 04/12/16 08:10 71 152/82 04/12/16 06:00 98.4 18 96 Room Air I&O- Last 24 Hours up to 6 AM 04/12/16 06:00 Intake Total 2160 ml Output Total 1150 ml Balance 1010 ml SIGIFREDO CASTILLO MD Apr 12, 2016 11:22
[2016-04-12 14:00] VITALS: BP 130/75
[2016-04-12] MEDS: ONDANSETRON 4 MG TAB (S0181) PO PRN (16:20)
[2016-04-12 22:00] VITALS: BP 117/68
[2016-04-12] MEDS: NORTRIPTYLINE 25 MG CAP PO SCH (22:47)
[2016-04-12] MEDS: zolPIDEM TARTRATE 5 MG TAB PO SCH (23:53)
[2016-04-13] MEDS: ACETAMINOPHEN TAB 650MG DOSE (2X325MG) PO PRN ×2 (04:24→11:07)
[2016-04-13 06:00] VITALS: BP 135/77
[2016-04-13] MEDS: SYMBICORT 160/4.5MCG INHALER 6GM INH SCH ×2 (08:02→08:03)
[2016-04-13] MEDS: PARoxetine 20 MG TAB PO SCH (08:58)
[2016-04-13] MEDS: ONDANSETRON 4 MG TAB (S0181) PO PRN (08:58)
[2016-04-13] MEDS: GABAPENTIN 400 MG CAP PO SCH ×2 (08:58→15:13)
[2016-04-13] MEDS: LORazepam 1 MG TAB PO PRN ×2 (08:58→15:13)
[2016-04-13] MEDS: hydrOXYzine 50 MG TAB PO SCH (08:58)
[2016-04-13 08:59] VITALS: BP 135/77
[2016-04-13] MEDS: tiZANidine 4 MG TAB PO SCH ×2 (08:59→15:13)
[2016-04-13] MEDS: FERROUS SULFATE 325MG TAB PO SCH (08:59)
[2016-04-13] MEDS: DOCUSATE SODIUM 100 MG CAP PO SCH (08:59)
[2016-04-13] MEDS: amLODIPine 5 MG TAB PO SCH (08:59)
[2016-04-13] MEDS: NAPROXEN 375 MG TAB PO SCH (08:59)
[2016-04-13] MEDS ORDERED: ENOXAPARIN 40 MG/0.4 ML SYRINGE (J1650) SC SCH (09:00)
[2016-04-13 09:08] LABS: BASO % 0.5 % (0.0-1.0); EOS # 0.1 K/mm3 (0.0-0.50); EOS % 0.8 % (0.0-3.0); LARGE UNSTAINED CELL # 0.3 K/mm3 (0.0-0.4); LARGE UNSTAINED CELL % 3.8 % (0.0-4.0); LYMPH # 1.8 K/mm3 (1.5-4.5); MEAN CORPUSCULAR HEMOGLOBIN 26.6 pg (27.0-33.0); MEAN CORPUSCULAR HGB CONC 31.4 g/dl (32.0-36.5); MEAN CORPUSCULAR VOLUME 84.8 fl (80.0-96.0); MONO # 0.8 K/mm3 (0.0-0.8); MONO % 11.5 % (0.0-5.0); NEUTROPHILS # 3.9 K/mm3 (1.8-7.7); NEUTROPHILS % 56.4 % (36.0-66.0); PLATELET COUNT, AUTOMATED 366 k/mm3 (150-450); RED CELL DISTRIBUTION WIDTH 17.1 % (11.5-14.5); WHITE BLOOD COUNT 6.8 K/mm3 (4.0-10.0)
[2016-04-13 09:39] LABS: ALBUMIN 2.7 GM/DL (3.2-5.2); ALBUMIN/GLOBULIN RATIO 0.75 (1.00-1.93); ALKALINE PHOSPHATASE 127 U/L (45-117); ALT/SGPT 14 U/L (12-78); ANION GAP 9 MEQ/L (8-16); AST/SGOT 15 U/L (15-37); BILIRUBIN,TOTAL 0.3 MG/DL (0.2-1.0); BLOOD UREA NITROGEN 9 MG/DL (7-18); CALCIUM LEVEL 8.2 MG/DL (8.5-10.1); CARBON DIOXIDE LEVEL 23 MEQ/L (21-32); CHLORIDE LEVEL 110 MEQ/L (98-107); CREATININE FOR GFR 0.67 MG/DL (0.55-1.02); GLOMERULAR FILTRATION RATE > 60.0 (>58); GLUCOSE, FASTING 92 MG/DL (70-105); POTASSIUM SERUM 3.8 MEQ/L (3.5-5.1); SODIUM LEVEL 142 MEQ/L (136-145); TOTAL PROTEIN 6.3 GM/DL (6.4-8.2)
[2016-04-13 14:00] VITALS: BP 159/75
--- NOTE | 2016-04-13 14:55 | IPNPDOC ---
Text Note Date of Service The patient was seen on 04/13/16 at 14:53. NOTE Subjective: Patient has been off her opioids states she's participating with physical therapy and moving around. Objective: Vitals: (see below) General: No acute distress, laying comfortably in bed. HEENT: Moist mucous membranes. Neck: No JVD or lymphadenopathy Cardiac: RRR, No murmurs Pulm: Clear to auscultation b/l. No wheezing, rhonchi Abd: NT/ND + BS Ext: No edema or cyanosis. B/l knee surgical incisions clean and dry. No tenderness on palpation, no effusions or erythema. Full ROM of BLE. Not suicidal or homicidal. Labs (see below) Images: CT b/l Knee 04/04/16 Findings: Bilateral metallic knee arthroplasties. Metallic prosthesis is in good position. No fracture or dislocation. Mild suprapatellar knee joint effusion. Moderate suprapatellar knee joint effusion. Bilateral periarticular subcutaneous soft tissue edema and fat stranding. Findings are more prominent on the left side. Impression: Osteopenia. Bilateral metallic knee arthroplasties. Metallic prostheses are in good position. Subcutaneous fat stranding and edema more on the left side. This can be secondary to systemic disease (congestive heart failure, venous stasis etc.), lymphedema versus cellulitis. This is clinical evaluation. No drainable fluid collection. BLE u/s 04/04/16 Impression: No evidence of deep vein thrombosis in either femoral popliteal venous system. Assessment/Plan 1. Chronic knee pain s/p b/l knee replacement - patient states she has been on opioids for many years. She has been on high doses of opioids. Pain management has been consulted with recommendations to taper down and ultimately discontinue her opioids. She is agreeable to naproxen and Tylenol. Although morphine and Dilaudid. CT of the bilateral knees (see above) sees. Patient states she's unable to get MRIs. She is working with physical therapy 2. Breast lump-breast ultrasound and mammogram with benign findings. 3. Morbid obesity with gait instability - we'll have physical therapy on board 4. Depression- continue paroxetine - we will obtain psychiatric consultation. 5. Constipation -cont miralax. DVT prophy: Heparin SQ VS,Fishbone, I+O VS, Fishbone, I+O Laboratory Tests 04/13/16 08:57 Calcium Level 8.2 L, Aspartate Amino Transf (AST/SGOT) 15, Alanine Aminotransferase (ALT/SGPT) 14, Alkaline Phosphatase 127 H, Total Bilirubin 0.3 , Total Protein 6.3 L, Albumin 2.7 L, Red Blood Count 4.27, Mean Corpuscular Volume 84.8, Mean Corpuscular Hemoglobin 26.6 L, Mean Corpuscular Hemoglobin Concent 31.4 L, Red Cell Distribution Width 17.1 H, Neutrophils (%) (Auto) 56.4 , Lymphocytes (%) (Auto) 27.0, Monocytes (%) (Auto) 11.5 H, Eosinophils (%) ( Auto) 0.8, Basophils (%) (Auto) 0.5, Neutrophils # (Auto) 3.9, Lymphocytes # ( Auto) 1.8, Monocytes # (Auto) 0.8, Eosinophils # (Auto) 0.1, Basophils # (Auto) 0.0 Vital Signs Date Time Temp Pulse Resp B/P Pulse Ox O2 Delivery O2 Flow Rate FiO2 04/13/16 08:59 82 135/77 04/13/16 06:00 98.4 17 90 Room Air I&O- Last 24 Hours up to 6 AM 04/13/16 06:00 Intake Total 1320 ml Output Total 700 ml Balance 620 ml SONI MCNEIL MD Apr 13, 2016 14:55
[2016-04-13] MEDS ORDERED: NAPR375T2 PO (15:52)
[2016-04-13] MEDS ORDERED: AMLO5TAB2 PO (15:52)
--- NOTE | 2016-04-13 16:40 | DS.PDOC ---
Discharge Summary General Date of Admission Mar 27, 2016 at 01:18 Date of Discharge Attending Physician: SONI MCNEIL MD Specialist/Consultants Involve: Lay Pop Discharge Summary PROCEDURES PERFORMED DURING STAY: None. COMPLICATIONS/CHIEF COMPLAINT: Bilateral Knee Pain ADMISSION/DISCHARGE DIAGNOSES: 1. Chronic knee pain status post bilateral knee replacements in [place] 2. Breast lump, with benign findings on imaging 3. Morbid obesity 4. Depression 5. Constipation 6. Questionable sleep apnea HISTORY OF PRESENT ILLNESS/HOSPITAL COURSE: This is a 45-year-old female with past medical history of morbid obesity, depression, and recent bilateral knee replacements in [place] who had left rehabilitation AMA, and and came back to the [facility]. The patient had been on high doses of morphine and Dilaudid. There was initial difficulty controlling her pain and pain management was consulted with recommendations to discontinue all opioids as patient's is likely opioid dependent, and has high risk given her morbid obesity and possible underlying sleep apnea. The patient was initially resistant, however did compromise and the was willing to taper off all of her opioids. The patient was supplemented with naproxen as well as Tylenol as needed. Patient also participated with physical therapy and did well. The patient did have a breast lump which she did have an ultrasound and a mammogram for revealing benign findings. She will need to follow-up with a primary care physician for monitoring and further testing. DISCHARGE MEDICATIONS: Please see below. ALLERGIES: Please see below. PHYSICAL EXAMINATION ON DISCHARGE: Vitals: (see below) General: No acute distress, laying comfortably in bed. HEENT: Moist mucous membranes. Neck: No JVD or lymphadenopathy Cardiac: RRR, No murmurs Pulm: Clear to auscultation b/l. No wheezing, rhonchi Abd: NT/ND + BS Ext: No edema or cyanosis. B/l knee surgical incisions clean and dry. No tenderness on palpation, no effusions or erythema. Full ROM of BLE. Not suicidal or homicidal. LABORATORY DATA: Please see below. IMAGING: CT b/l Knee 04/04/16 Findings: Bilateral metallic knee arthroplasties. Metallic prosthesis is in good position. No fracture or dislocation. Mild suprapatellar knee joint effusion. Moderate suprapatellar knee joint effusion. Bilateral periarticular subcutaneous soft tissue edema and fat stranding. Findings are more prominent on the left side. Impression: Osteopenia. Bilateral metallic knee arthroplasties. Metallic prostheses are in good position. Subcutaneous fat stranding and edema more on the left side. This can be secondary to systemic disease (congestive heart failure, venous stasis etc.), lymphedema versus cellulitis. This is clinical evaluation. No drainable fluid collection. BLE u/s 04/04/16 Impression: No evidence of deep vein thrombosis in either femoral popliteal venous system. VTE Prophylaxis ordered?: Yes DISCHARGE CONDITION: Stable DISPOSITION: Home; will be obtaining emergency housing per Tone the behavioral health case manager. ACTIVITY: As tolerated DIET: Low-sodium DISCHARGE PLAN AND INSTRUCTIONS: 1. F/u with PCP in 1-2 weeks. Will need sleep study outpatient, to be referred by PCP. TIME SPENT ON DISCHARGE: Greater than 30 minutes. Vital Signs/I&Os Vital Signs Date Time Temp Pulse Resp B/P Pulse Ox O2 Delivery O2 Flow Rate FiO2 04/13/16 14:00 98.9 88 18 159/75 94 Room Air I&O- Last 24 Hours up to 6 AM 04/13/16 06:00 Intake Total 1320 ml Output Total 700 ml Balance 620 ml Laboratory Data Labs 24H Laboratory Tests 2 04/13/16 08:57: Blood Urea Nitrogen 9, Creatinine 0.67, Sodium Level 142, Potassium Level 3.8, Chloride Level 110H, Carbon Dioxide Level 23, Calcium Level 8.2L, Aspartate Amino Transf (AST/SGOT) 15, Alanine Aminotransferase (ALT/SGPT) 14, Alkaline Phosphatase 127H, Total Bilirubin 0.3, Total Protein 6.3L, Albumin 2.7L, Albumin /Globulin Ratio 0.75L, Anion Gap 9, White Blood Count 6.8, Red Blood Count 4.27 , Hemoglobin 11.4L, Hematocrit 36.2, Mean Corpuscular Volume 84.8, Mean Corpuscular Hemoglobin 26.6L, Mean Corpuscular Hemoglobin Concent 31.4L, Red Cell Distribution Width 17.1H, Platelet Count 366, Neutrophils (%) (Auto) 56.4, Lymphocytes (%) (Auto) 27.0, Monocytes (%) (Auto) 11.5H, Eosinophils (%) (Auto) 0.8, Basophils (%) (Auto) 0.5, Neutrophils # (Auto) 3.9, Lymphocytes # (Auto) 1.8, Monocytes # (Auto) 0.8, Eosinophils # (Auto) 0.1, Basophils # (Auto) 0.0, Glomerular Filtration Rate > 60.0, Large Unclassified Cells # 0.3, Large Unclassified Cells % 3.8, Magnesium Level 2.0 CBC/BMP Laboratory Tests 04/13/16 08:57 Calcium Level 8.2 L, Aspartate Amino Transf (AST/SGOT) 15, Alanine Aminotransferase (ALT/SGPT) 14, Alkaline Phosphatase 127 H, Total Bilirubin 0.3 , Total Protein 6.3 L, Albumin 2.7 L, Red Blood Count 4.27, Mean Corpuscular Volume 84.8, Mean Corpuscular Hemoglobin 26.6 L, Mean Corpuscular Hemoglobin Concent 31.4 L, Red Cell Distribution Width 17.1 H, Neutrophils (%) (Auto) 56.4 , Lymphocytes (%) (Auto) 27.0, Monocytes (%) (Auto) 11.5 H, Eosinophils (%) ( Auto) 0.8, Basophils (%) (Auto) 0.5, Neutrophils # (Auto) 3.9, Lymphocytes # ( Auto) 1.8, Monocytes # (Auto) 0.8, Eosinophils # (Auto) 0.1, Basophils # (Auto) 0.0 Medications Scheduled (Iron) 325 Mg Tab 325 MG PO DAILY Amlodipine Besylate (Amlodipine Besylate) 5 Mg Tab 5 MG PO DAILY Budesonide/Formoterol (Symbicort 160-4.5 Mcg/Act) 60 Puff/Inhaler Aers 2 PUFF INH BID Gabapentin (Neurontin) 800 Mg Tab 800 MG PO TID Hydroxyzine HCl (Hydroxyzine HCl) 50 Mg Tab 50 MG PO BID takes at 0800 and 1200 Hydroxyzine HCl (Hydroxyzine HCl) 50 Mg Tab 100 MG PO QHS Naproxen (Naproxen) 375 Mg Tab 375 MG PO BID Nortriptyline HCl (Nortriptyline HCl) 50 Mg Cap 50 MG PO QHS Paroxetine Hydrochloride (Paxil) 40 Mg Tab 40 MG PO DAILY Tizanidine Hydrochloride (Zanaflex) 4 Mg Cap 4 MG PO TID Zolpidem Tartrate (Ambien) 5 Mg Tab 5 MG PO QHS Scheduled PRN Albuterol Sulfate (Proair Hfa) 108 Mcg/Act Aer 2 PUFF INH PRN PRN PRN SHORTNESS OF BREATH Ondansetron HCl (Zofran) 4 Mg Tab 4 MG PO Q8H PRN PRN NAUSEA Rizatriptan Benzoate (Maxalt) 10 Mg Tab 10 MG PO PRN PRN PRN MIGRAINE Allergies Coded Allergies: Daptomycin (Unverified Allergy, Unknown, 03/26/16) Sumatriptan (Unverified Allergy, Unknown, chest pains, 03/26/16) TAPE (Unverified Adverse Reaction, Unknown, rash, 03/26/16) SONI MCNEIL MD Apr 13, 2016 16:40
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
== END 2016-04-13 18:35 | disposition home or self-care (01) | DRG 861 ==
LOC: M ED 21:08 → M ED INP 03-27 01:18 → M MS5PR 03-27 02:10 → M MSPAV 03-30 14:25
PROVIDERS: ADMIT Internal Medicine; ATTEND Internal Medicine
DX: G89.18 Other acute postprocedural pain (principal); F11.20 Opioid dependence, uncomplicated; E66.01 Morbid (severe) obesity due to excess calories; Z68.43 Body mass index [BMI] 50.0-59.9, adult; M25.561 Pain in right knee; R26.9 Unspecified abnormalities of gait and mobility; N63 Unspecified lump in breast; M25.562 Pain in left knee; D50.9 Iron deficiency anemia, unspecified; K59.00 Constipation, unspecified; F41.8 Other specified anxiety disorders; M79.7 Fibromyalgia; G47.00 Insomnia, unspecified; L53.9 Erythematous condition, unspecified; J45.909 Unspecified asthma, uncomplicated; G43.909 Migraine, unspecified, not intractable, without status migrainosus; G47.33 Obstructive sleep apnea (adult) (pediatric); Z79.899 Other long term (current) drug therapy; Z88.8 Allergy status to other drugs, medicaments and biological substances; Z91.048 Other nonmedicinal substance allergy status; Z96.651 Presence of right artificial knee joint; Z96.652 Presence of left artificial knee joint; Z90.710 Acquired absence of both cervix and uterus; Z90.49 Acquired absence of other specified parts of digestive tract; Z80.3 Family history of malignant neoplasm of breast

== ENCOUNTER 2016-08-09 18:30 | Inpatient (IN) | payer OTHER, MEDICAID ==
[~2016-08-09] VITALS: Ht 167.6 cm; Wt 142.9 kg
[~2016-08-09 18:30] MED LIST: AMBI5TAB PO; AMLO5TAB2 PO; DILA4TAB PO; HYDR-4274 PO; IRON65TA PO; MAXA10TA14 PO; MSIR30TA PO; NAPR375T2 PO; NEUR800T PO; NORT50CA PO; PAXI40TA2 PO; PROA1AER INH; SYMB16INH INH; ZANA4CAP PO; ZOFR20TA PO
[2016-08-09] MEDS ORDERED: MORP20SO PO (18:58)
[2016-08-09] MEDS ORDERED: DILA4TAB PO (18:58)
[2016-08-09] MEDS: IPRATROPIUM 0.5MG/ALBUTEROL 2.5MG INH SOL UD 3ML (DUONEB)(J7620) NEB SCH ×3 (19:42→21:08)
[2016-08-09] MEDS ORDERED: methylPREDNISolone INJ 125 MG/2 ML VIAL (J2930) IV ONE (19:45)
[2016-08-09 20:04] LABS: BASO % 0.4 % (0.0-1.0); EOS # 0.1 K/mm3 (0.0-0.50); EOS % 0.9 % (0.0-3.0); LARGE UNSTAINED CELL # 0.2 K/mm3 (0.0-0.4); LARGE UNSTAINED CELL % 1.8 % (0.0-4.0); LYMPH # 1.4 K/mm3 (1.5-4.5); MEAN CORPUSCULAR HEMOGLOBIN 27.7 pg (27.0-33.0); MEAN CORPUSCULAR HGB CONC 32.6 g/dl (32.0-36.5); MEAN CORPUSCULAR VOLUME 85.1 fl (80.0-96.0); MONO # 0.5 K/mm3 (0.0-0.8); MONO % 5.3 % (0.0-5.0); NEUTROPHILS # 6.8 K/mm3 (1.8-7.7); NEUTROPHILS % 77.6 % (36.0-66.0); PLATELET COUNT, AUTOMATED 257 k/mm3 (150-450); RED CELL DISTRIBUTION WIDTH 17.1 % (11.5-14.5); WHITE BLOOD COUNT 8.8 K/mm3 (4.0-10.0)
[2016-08-09 20:44] LABS: ALBUMIN 3.6 GM/DL (3.2-5.2); ALBUMIN/GLOBULIN RATIO 0.97 (1.00-1.93); ALKALINE PHOSPHATASE 155 U/L (45-117); ALT/SGPT 19 U/L (12-78); ANION GAP 11 MEQ/L (8-16); AST/SGOT 11 U/L (15-37); BILIRUBIN,DIRECT 0.2 MG/DL (0.0-0.2); BILIRUBIN,TOTAL 0.6 MG/DL (0.2-1.0); BLOOD UREA NITROGEN 7 MG/DL (7-18); CALCIUM LEVEL 8.6 MG/DL (8.5-10.1); CARBON DIOXIDE LEVEL 24 MEQ/L (21-32); CHLORIDE LEVEL 104 MEQ/L (98-107); CREATININE FOR GFR 0.66 MG/DL (0.55-1.02); GLOMERULAR FILTRATION RATE > 60.0 (>58); GLUCOSE, FASTING 108 MG/DL (70-105); POTASSIUM SERUM 3.5 MEQ/L (3.5-5.1); SODIUM LEVEL 139 MEQ/L (136-145); TOTAL PROTEIN 7.3 GM/DL (6.4-8.2)
[2016-08-09] MEDS ORDERED: zolPIDEM TARTRATE 5 MG TAB PO SCH (21:00)
[2016-08-09] MEDS ORDERED: MAG SULF 1GM/100ML (MAG RUN) 1 GM in APPROPRIATE DILUENT 1 EA IV ONE (21:15)
[2016-08-09] MEDS ORDERED: ACETAMINOPHEN TAB 650MG DOSE (2X325MG) PO ONE (21:30)
--- NOTE | 2016-08-09 21:32 | REP ---
Clinical: Cough and dyspnea . Comparison: None . Findings: The mediastinum and cardiac silhouette are stable and within normal limits for portable technique. The lung montes de oca are clear without acute consolidation, effusion, or pneumothorax. Skeletal structures are intact. Impression: Normal portable chest x-ray Signed by Adam Tucker MD 08/09/2016 09:24 P
--- NOTE | 2016-08-09 21:44 | ECGEPIP ---
Stationary ECG Study [facility] - ED Test Date: 2016-08-09 Pat Name: JYOTHI OWENS Department: Room: - Gender: F Picture Hanger: MunizB: 1970 Requested By: Temi Ruiz Order Number: [id number] Reading MD: Delbert Morocho Measurements Intervals [place] Rate: 109 P: 25 OR: 147 QRS: -9 QRSD: 97 T: 45 QT: 347 QTc: 467 Interpretive Statements SINUS TACHYCARDIA MINIMAL VOLTAGE CRITERIA FOR LVH, CONSIDER NORMAL VARIANT NONSPECIFIC T-WAVE ABNORMALITY NO PRIORS Electronically Signed On 08-09-2016 21:43:45 EDT by Delbert Morocho
[2016-08-09] MEDS ORDERED: HYDROmorphone HCL 1 MG/ML SYRINGE (J1170) IV ONE (22:45)
[2016-08-09] MEDS ORDERED: MONTELUKAST 10 MG TAB PO ONE (22:45)
[2016-08-09] MEDS ORDERED: IPRATROPIUM 0.5MG/ALBUTEROL 2.5MG INH SOL UD 3ML (DUONEB)(J7620) NEB SCH (22:45)
[2016-08-09] MEDS ORDERED: ZANA4TAB PO (23:00)
[2016-08-09] MEDS ORDERED: PAXI20TA3 PO (23:00)
[2016-08-09] MEDS ORDERED: MORP30TASA PO (23:00)
[2016-08-09] MEDS: NS 1,000 ML IV SCH (23:12)
[2016-08-10] MEDS ORDERED: ALBUTEROL 90 MCG/ACT 8GM HFA INHALER INH PRN (00:15)
[2016-08-10] MEDS: IPRATROPIUM 0.02% SOLN 0.5MG/2.5 ML NEB NEB SCH ×6 (00:37→19:23)
[2016-08-10] MEDS: LEVALBUTEROL 1.25 MG/0.5 ML CONCENTRATE NEB NEB SCH ×6 (00:38→19:23)
[2016-08-10] MEDS ORDERED: ACETAMINOPHEN TAB 650MG DOSE (2X325MG) PO PRN (01:00)
[2016-08-10] MEDS: hydrOXYzine 50 MG TAB PO SCH ×2 (01:16→21:49)
[2016-08-10] MEDS: GABAPENTIN 400 MG CAP PO SCH ×4 (01:16→20:14)
[2016-08-10] MEDS: HYDROmorphone (DILAUDID) 4 MG TAB PO SCH ×4 (01:16→20:40)
[2016-08-10] MEDS: MORPHINE 30 MG SA TAB PO SCH ×4 (01:17→21:50)
[2016-08-10 02:00] VITALS: BP 117/59
[2016-08-10] MEDS: methylPREDNISolone INJ 125 MG/2 ML VIAL (J2930) IV SCH ×4 (02:24→20:14)
[2016-08-10] MEDS: tiZANidine 4 MG TAB PO SCH ×4 (02:29→20:15)
[2016-08-10] MEDS: SYMBICORT 160/4.5MCG INHALER 6GM INH SCH ×2 (02:36→07:54)
[2016-08-10 06:00] VITALS: BP 108/60
[2016-08-10] MEDS: HEPARIN SOD (PORCINE) 5000 UNITS/ML VIAL SQ SCH ×3 (06:00→21:52)
--- NOTE | 2016-08-10 06:00 | HPE ---
DATE OF ADMISSION: 08/10/2016 PRIMARY CARE PHYSICIAN: None. INPATIENT HOSPITALIST ATTENDING: Dr. Chyna Villar. CHIEF COMPLAINT: Shortness of breath. HISTORY OF PRESENT ILLNESS: This is a 46-year-old female with no primary care physician who moved to the [place] area in March of this year, was due to see a primary care physician next week, with prior history significant for obstructive sleep apnea, fibromyalgia, morbid obesity, anxiety/depression, chronic back pain, osteoarthritis, migraine headaches, iron-deficiency anemia, back surgery on L5-S1, cholecystectomy, appendectomy, dilation and curettage, bilateral total knee replacement, and hysterectomy, who presents to the emergency room with complaints of wheezing and shortness of breath since 5 p.m. The patient complained of upper respiratory infection (URI) with cough/cold symptoms at home since yesterday, cough productive of white sputum, runny nose, fever of 104.7 at home. The patient had taken liquid Tylenol every four hours but had been experiencing significant nausea and vomiting when she coughs. Despite nebulizers and ProAir six times daily, there has been no relief. She has been using her Symbicort. She has had significant exercise intolerance, unable to walk 10-15 feet due to significant wheezing. For the past month, the patient has been exposed to potential mold at home in their new apartment where she moved to on July 06. When emergency medical services (EMS) arrived today, they felt there was a "musty moldy smell." The patient was found to be severely wheezing with decreased air entry. She was brought into the emergency room for further evaluation. Chest x-ray was unremarkable. No acute infiltrate or consolidation. The patient was found to have enterovirus and human rhinovirus on respiratory panel. She had a fever of 101.3 without white count. Hospitalist service was called for admission for asthma exacerbation most likely secondary to viral infection, enterovirus and human rhinovirus. PAST MEDICAL HISTORY: 1. Asthma. 2. Anxiety/depression. 3. Chronic back pain. 4. Osteoarthritis. 5. Migraine headache. 6. Iron-deficiency anemia. 7. Obstructive sleep apnea on continuous positive airway pressure (CPAP). 8. Fibromyalgia. 9. Morbid obesity. PAST SURGICAL HISTORY: 1. Hysterectomy. 2. Back surgery L5-S1 fusion. 3. section times two. 4. Cholecystectomy. 5. Appendectomy. 6. Dilation and curettage (D and C). 7. Bilateral total knee arthroplasty 02/2016. ALLERGIES: 1. DAPTOMYCIN with increased creatine phosphokinase (CPK). 2. SUMATRIPTAN causing chest pain. SOCIAL HISTORY: Moved to an apartment with potential mold 07/06/2016. Lives with . History of marijuana use more than 20 years ago. Denies smoking or alcohol use. The patient's used to work at [employer]. REVIEW OF SYSTEMS: Per history of present illness (HPI). 12-point system otherwise negative. PHYSICAL EXAMINATION: VITAL SIGNS: Temperature 98.1, pulse 122, sinus tachycardia. Respiratory rate 20 , blood pressure 118/79, 99% on room air. Temperature maximum (T-max) of 101.3. GENERAL: Awake, alert, and oriented times three. Able to speak in full sentences. No use of respiratory accessory muscles. No cyanosis. HEENT: No icterus or jaundice. Pupils are round, reactive to light and accommodation. Extraocular muscles are intact. Moist mucous membranes. NECK: No cervical lymphadenopathy, thyromegaly or jugular venous distention. LUNGS: Diminished breath sounds bilaterally with decreased breath sounds, bilateral wheezing. HEART: S1, S2. Sinus tachycardia. ABDOMEN: Obese, soft, nontender, nondistended. EXTREMITIES: No pitting edema. EKG: Sinus rhythm, ventricular rate of 109, left ventricular hypertrophy (LVH). Nonspecific ST-T wave changes. LABORATORY DATA: White count 8.8, hemoglobin 13, hematocrit 40, platelet count 257, 77% neutrophils, 14% lymphocytes. Sodium 139, potassium 3.5, chloride 104, bicarbonate 24, BUN 7, creatinine 0.66, glucose 108, calcium 86, total bilirubin 0.6, direct bilirubin 0.2, AST 11, ALT 19, alkaline phosphatase 155. Total CK 46, MB fraction 1. Relative index 2.17, troponin less than 0.02. BNP 23.3. Total protein 7.3, albumin 3.6. TSH 0.701. MICROBIOLOGY: Respiratory panel human rhinovirus, enterovirus. Two sets of blood cultures are pending. IMAGING: Chest x-ray no acute infiltrate, effusion or consolidation. ASSESSMENT AND PLAN: This is a 46-year-old female with a history significant for asthma, anxiety/depression, chronic back pain with L5-S1 fusion on chronic opioids, osteoarthritis, migraine headaches, obstructive sleep apnea on CPAP, iron-deficiency anemia, fibromyalgia, and morbid obesity, who presents to the emergency room with one-day complaint of wheezing, started at 5 p.m. with no improvement with nebulizer treatment. She has had an upper respiratory infection for the past few days. Was found to have enterovirus and human rhinovirus on respiratory panel on clear thin, asthma exacerbation. The patient will be admitted to the medical/surgical floor as an inpatient for two midnights for the following issues: 1. Acute asthma exacerbation most likely secondary to recent viral infection with rhinovirus and enterovirus. Contact precautions. Continue with Solu-Medrol intravenously, nebulizer treatments. Currently not hypoxic. Will not need supplemental oxygen. No empiric antibiotics required. Intravenous (IV) steroids, Symbicort every four hours, DuoNeb, and Singulair. 2. Chronic back pain with L5-S1 fusion. Resume home doses of morphine 30 three times a day, Zanaflex and gabapentin. The patient to followup with her new primary care physician. 3. Depression. Continue on Paxil. 4. History of migraine headaches. As needed Maxalt. 5. Iron-deficiency anemia, stable. Hemoglobin appears to be stable. No complaints. Gastrointestinal ( GI) symptoms at this time. 6. Insomnia. As needed Xanax at bedtime. 7. Deep venous thrombosis (DVT) prophylaxis with heparin subcutaneously. MTDD
[2016-08-10 06:01] LABS: BASO % 0.2 % (0.0-1.0); EOS % 0.5 % (0.0-3.0); LARGE UNSTAINED CELL % 0.4 % (0.0-4.0); LYMPH # 0.4 K/mm3 (1.5-4.5); LYMPH % 5.7 % (24.0-44.0); MEAN CORPUSCULAR HGB CONC 32.3 g/dl (32.0-36.5); MEAN CORPUSCULAR VOLUME 86.6 fl (80.0-96.0); MONO # 0.1 K/mm3 (0.0-0.8); MONO % 1.6 % (0.0-5.0); NEUTROPHILS # 6.8 K/mm3 (1.8-7.7); NEUTROPHILS % 91.6 % (36.0-66.0); PLATELET COUNT, AUTOMATED 263 k/mm3 (150-450); RED CELL DISTRIBUTION WIDTH 17.3 % (11.5-14.5); WHITE BLOOD COUNT 7.4 K/mm3 (4.0-10.0)
[2016-08-10 06:21] LABS: ALBUMIN 3.1 GM/DL (3.2-5.2); ALBUMIN/GLOBULIN RATIO 0.74 (1.00-1.93); ALKALINE PHOSPHATASE 136 U/L (45-117); ALT/SGPT 18 U/L (12-78); ANION GAP 11 MEQ/L (8-16); AST/SGOT 9 U/L (15-37); BILIRUBIN,TOTAL 0.3 MG/DL (0.2-1.0); BLOOD UREA NITROGEN 12 MG/DL (7-18); CARBON DIOXIDE LEVEL 19 MEQ/L (21-32); CHLORIDE LEVEL 108 MEQ/L (98-107); CREATININE FOR GFR 0.97 MG/DL (0.55-1.02); GLOMERULAR FILTRATION RATE > 60.0 (>58); GLUCOSE, FASTING 172 MG/DL (70-105); POTASSIUM SERUM 4.1 MEQ/L (3.5-5.1); SODIUM LEVEL 138 MEQ/L (136-145); TOTAL PROTEIN 7.3 GM/DL (6.4-8.2)
[2016-08-10] MEDS: NS 1,000 ML IV SCH (08:45)
[2016-08-10] MEDS: PARoxetine 20 MG TAB PO SCH (08:52)
[2016-08-10] MEDS: MONTELUKAST 10 MG TAB PO SCH (08:52)
[2016-08-10] MEDS: ONDANSETRON 4MG/2ML VIAL (J2405) IV PRN ×2 (08:52→15:59)
[2016-08-10] MEDS ORDERED: BUDESONIDE 180MCG INHALER (PULMICORT FLEXHALER) INH SCH (09:00)
--- NOTE | 2016-08-10 10:58 | IPNPDOC ---
Subjective Date Seen The patient was seen on 08/10/16. Subjective Chief Complaint/HPI The patient is a 46-year-old female admitted with a reason for visit of Asthma Exacerbation. General: Denies: Chills, Night Sweats Constitutional: Denies: Chills, Fever Eyes: Denies: Pain, Vision change ENT: Denies: Head Aches, Ear Pain Skin: Denies: Rash, Lesions Pulmonary: Reports: Dyspnea, Cough Cardiovascular: Denies: Chest Pain, Palpitations Gastrointestinal: Denies: Nausea, Vomiting Genitourinary: Denies: Dysuria, Frequency Hematologic: Denies: Bruising, Bleeding Excessively Objective Physical Examination General Exam: Positive: Alert, Cooperative, No Acute Distress, Other (morbidly obese) ENT Exam: Positive: Atraumatic, Mucous membr. moist/pink Neck Exam: Negative: JVD Chest Exam: Positive: Wheezing, Diminished (diffuse), Negative: Rales Heart Exam: Positive: Rate Normal, Normal S1, Normal S2 Abdomen Exam: Positive: Soft, Negative: Tenderness Extremity Exam: Negative: Tenderness, Swelling Assessment /Plan Plan/VTE VTE Prophylaxis Ordered?: Yes Plan Acute Asthma exacerbation 2/2 Rhinovirus/Enterovirus Contact precautions. Continue with Solu-Medrol intravenously, nebulizer treatments, Singulair. Not requiring any supplemental oxygen. Patient noted to have diffuse wheezing on exam We'll continue to monitor patient's respiratory status Chronic back pain with L5-S1 fusion Cont home dose of morphine 30 three times a day, Zanaflex and gabapentin. Depression Continue on Paxil History of migraine headaches Maxal prn Iron-deficiency anemia, stable Insomnia Xanax prn bedtime Deep venous thrombosis (DVT) prophylaxis Heparin subcutaneously. Disposition-anticipate discharge in the next 24-48 hours pending clinical improvement. VS, I&O, 24H, Jongbone Vital Signs/I&O Vital Signs Date Time Temp Pulse Resp B/P (MAP) Pulse Ox O2 Delivery O2 Flow Rate FiO2 08/10/16 08:53 22 Room Air 08/10/16 06:00 97.8 101 108/60 (76) 93 I&O- Last 24 Hours up to 6 AM 08/10/16 06:00 Intake Total 800 ml Output Total 125 ml Balance 675 ml Laboratory Data 24H LABS Laboratory Tests 2 08/09/16 19:49: White Blood Count 8.8, Red Blood Count 4.79, Hemoglobin 13.3, Hematocrit 40.7, Mean Corpuscular Volume 85.1, Mean Corpuscular Hemoglobin 27.7, Mean Corpuscular Hemoglobin Concent 32.6, Red Cell Distribution Width 17.1H, Platelet Count 257, Neutrophils (%) (Auto) 77.6H, Lymphocytes (%) (Auto) 14.0L, Monocytes (%) (Auto) 5.3H, Eosinophils (%) (Auto) 0.9, Basophils (%) (Auto) 0.4 , Neutrophils # (Auto) 6.8, Lymphocytes # (Auto) 1.4L, Monocytes # (Auto) 0.5, Eosinophils # (Auto) 0.1, Basophils # (Auto) 0.0, Large Unclassified Cells % 1.8 , Large Unclassified Cells # 0.2, Anion Gap 11, Glomerular Filtration Rate > 60.0, Calcium Level 8.6, Aspartate Amino Transf (AST/SGOT) 11L, Alanine Aminotransferase (ALT/SGPT) 19, Alkaline Phosphatase 155H, Total Bilirubin 0.6, Direct Bilirubin 0.2, Total Creatine Kinase 46, Creatine Kinase MB 1.0, Creatine Kinase MB Relative Index 2.17, Troponin I < 0.02, B-Type Natriuretic Peptide 23.3, Total Protein 7.3, Albumin 3.6, Albumin/Globulin Ratio 0.97L, Thyroid Stimulating Hormone (TSH) 0.701 08/10/16 05:25: Urine Appearance HAZY, Urine Color YELLOW, Urine pH 5.0, Urine Specific [place] 1.023, Urine Protein 1+H, Urine Glucose (UA) 3+H, Urine Ketones TRACEH, Urine Urobilinogen 0.2, Urine Bilirubin NEGATIVE, Urine Leukocyte Esterase NEGATIVE, Urine Blood NEGATIVE, Urine Nitrite POSITIVE, Urine WBC (Auto) 4H, Urine RBC ( Auto) 1, Urine Hyaline Casts (Auto) 0, Urine Bacteria (Auto) 1+H, Urine Squamous Epithelial Cells 1, Urine Mucus (Auto) SMALL, Urine Sperm (Auto) 08/10/16 05:30: White Blood Count 7.4, Red Blood Count 4.39, Hemoglobin 12.3, Hematocrit 38.0, Mean Corpuscular Volume 86.6, Mean Corpuscular Hemoglobin 28.0, Mean Corpuscular Hemoglobin Concent 32.3, Red Cell Distribution Width 17.3H, Platelet Count 263, Neutrophils (%) (Auto) 91.6H, Lymphocytes (%) (Auto) 5.7L, Monocytes (%) (Auto) 1.6, Eosinophils (%) (Auto) 0.5, Basophils (%) (Auto) 0.2, Neutrophils # (Auto) 6.8, Lymphocytes # (Auto) 0.4L, Monocytes # (Auto) 0.1, Eosinophils # (Auto) 0.0, Basophils # (Auto) 0.0, Large Unclassified Cells % 0.4 , Large Unclassified Cells # 0.0, Anion Gap 11, Glomerular Filtration Rate > 60.0, Calcium Level 8.0L, Aspartate Amino Transf (AST/SGOT) 9L, Alanine Aminotransferase (ALT/SGPT) 18, Alkaline Phosphatase 136H, Total Bilirubin 0.3, Total Protein 7.3, Albumin 3.1L, Albumin/Globulin Ratio 0.74L, Blood Urea Nitrogen 12#, Creatinine 0.97, Sodium Level 138, Potassium Level 4.1, Chloride Level 108H, Carbon Dioxide Level 19L CBC/BMP Laboratory Tests 08/09/16 19:49 Red Blood Count 4.79, Mean Corpuscular Volume 85.1, Mean Corpuscular Hemoglobin 27.7, Mean Corpuscular Hemoglobin Concent 32.6, Red Cell Distribution Width 17.1 H, Neutrophils (%) (Auto) 77.6 H, Lymphocytes (%) (Auto) 14.0 L, Monocytes (%) (Auto) 5.3 H, Eosinophils (%) (Auto) 0.9, Basophils (%) (Auto) 0.4, Neutrophils # (Auto) 6.8, Lymphocytes # (Auto) 1.4 L, Monocytes # (Auto) 0.5, Eosinophils # (Auto) 0.1, Basophils # (Auto) 0.0 08/10/16 05:30 Red Blood Count 4.39, Mean Corpuscular Volume 86.6, Mean Corpuscular Hemoglobin 28.0, Mean Corpuscular Hemoglobin Concent 32.3, Red Cell Distribution Width 17.3 H, Neutrophils (%) (Auto) 91.6 H, Lymphocytes (%) (Auto) 5.7 L, Monocytes ( %) (Auto) 1.6, Eosinophils (%) (Auto) 0.5, Basophils (%) (Auto) 0.2, Neutrophils # (Auto) 6.8, Lymphocytes # (Auto) 0.4 L, Monocytes # (Auto) 0.1, Eosinophils # (Auto) 0.0, Basophils # (Auto) 0.0, Calcium Level 8.0 L, Aspartate Amino Transf (AST/SGOT) 9 L, Alanine Aminotransferase (ALT/SGPT) 18, Alkaline Phosphatase 136 H, Total Bilirubin 0.3, Total Protein 7.3, Albumin 3.1 L Microbiology Microbiology 08/09/16 Blood Culture, Received Pending 08/09/16 Blood Culture, Received Pending 08/09/16 Respiratory Virus Panel (PCR) (DANNY) - Final, Complete Human Rhinovirus/Enterovirus 08/10/16 Urine Culture, Received Pending FREEDOM MIRANDA MD August 10, 2016 10:58
[2016-08-10 14:00] VITALS: BP 138/73
[2016-08-10] MEDS: TRIAMCINOLONE ACETONIDE 0.025 % 80 GM CREAM TOP PRN (17:42)
[2016-08-10] MEDS: DOCUSATE SODIUM 100 MG CAP PO SCH (20:14)
[2016-08-10] MEDS: SENNA 8.6 MG TAB (SENOKOT) PO SCH (20:15)
[2016-08-10 22:00] VITALS: BP 113/59
[2016-08-10] MEDS: zolPIDEM TARTRATE 5 MG TAB PO SCH (23:24)
[2016-08-11] MEDS: LEVALBUTEROL 1.25 MG/0.5 ML CONCENTRATE NEB NEB SCH ×7 (00:46→23:55)
[2016-08-11] MEDS: IPRATROPIUM 0.02% SOLN 0.5MG/2.5 ML NEB NEB SCH ×7 (00:46→23:55)
[2016-08-11] MEDS: SYMBICORT 160/4.5MCG INHALER 6GM INH SCH ×3 (00:47→19:33)
[2016-08-11] MEDS: methylPREDNISolone INJ 125 MG/2 ML VIAL (J2930) IV SCH ×2 (02:00→08:19)
[2016-08-11] MEDS: HEPARIN SOD (PORCINE) 5000 UNITS/ML VIAL SQ SCH ×3 (05:08→21:45)
[2016-08-11 06:00] VITALS: BP 120/64
[2016-08-11] MEDS: TRIAMCINOLONE ACETONIDE 0.025 % 80 GM CREAM TOP PRN ×2 (07:08→12:00)
[2016-08-11] MEDS: tiZANidine 4 MG TAB PO SCH ×3 (08:19→20:46)
[2016-08-11] MEDS: SENNA 8.6 MG TAB (SENOKOT) PO SCH ×2 (08:19→20:45)
[2016-08-11] MEDS: PARoxetine 20 MG TAB PO SCH (08:20)
[2016-08-11] MEDS: HYDROmorphone (DILAUDID) 4 MG TAB PO SCH ×3 (08:20→20:47)
[2016-08-11] MEDS: GABAPENTIN 400 MG CAP PO SCH ×3 (08:20→20:43)
[2016-08-11] MEDS: MONTELUKAST 10 MG TAB PO SCH (08:21)
[2016-08-11] MEDS: DOCUSATE SODIUM 100 MG CAP PO SCH ×2 (08:21→20:45)
[2016-08-11 08:42] LABS: MEAN CORPUSCULAR HEMOGLOBIN 27.9 pg (27.0-33.0); MEAN CORPUSCULAR HGB CONC 31.1 g/dl (32.0-36.5); MEAN CORPUSCULAR VOLUME 89.7 fl (80.0-96.0); RED CELL DISTRIBUTION WIDTH 17.4 % (11.5-14.5); WHITE BLOOD COUNT 13.2 K/mm3 (4.0-10.0)
[2016-08-11 08:59] LABS: CALCIUM LEVEL 8.5 MG/DL (8.5-10.1); CREATININE FOR GFR 1.3 MG/DL (0.55-1.02); GLOMERULAR FILTRATION RATE 46.9 (>58); POTASSIUM SERUM 4.2 MEQ/L (3.5-5.1)
--- NOTE | 2016-08-11 09:57 | IPNPDOC ---
Subjective Date Seen The patient was seen on 08/11/16. Subjective Chief Complaint/HPI The patient is a 46-year-old female admitted with a reason for visit of Asthma Exacerbation. General: Denies: Chills, Night Sweats Constitutional: Denies: Chills, Fever Eyes: Denies: Pain, Vision change ENT: Denies: Head Aches, Ear Pain Skin: Denies: Rash, Lesions Pulmonary: Reports: Dyspnea, Cough Cardiovascular: Denies: Chest Pain, Palpitations Gastrointestinal: Denies: Nausea, Vomiting Genitourinary: Denies: Dysuria, Frequency Hematologic: Denies: Bruising, Bleeding Excessively Musculoskeletal: Denies: Neck Pain, Back Pain Objective Physical Examination General Exam: Positive: Alert, Cooperative, No Acute Distress, Other (morbidly obese) ENT Exam: Positive: Atraumatic, Mucous membr. moist/pink Neck Exam: Negative: JVD Chest Exam: Positive: Wheezing (Diffuse, Improving), Diminished (diffuse), Negative: Rales Heart Exam: Positive: Rate Normal, Normal S1, Normal S2 Abdomen Exam: Positive: Soft, Negative: Tenderness Extremity Exam: Negative: Tenderness, Swelling Assessment /Plan Plan/VTE VTE Prophylaxis Ordered?: Yes Plan Acute Asthma exacerbation 2/2 Rhinovirus/Enterovirus Contact precautions. Continue with Solu-Medrol intravenously--we will continue to down-taper dosing, nebulizer treatments, Singulair. Not requiring any supplemental oxygen. Patient's wheezing improving, with better aeration on auscultation today We'll continue to monitor patient's respiratory status Acute Kidney Injury likely 2/2 Viral Infection Serum Cr 1.3 this am (Baseline ~1.0) IVF Hydration ordered Avoid Nephrotoxins We will continue to monitor Serum Cr Chronic back pain with L5-S1 fusion Cont home dose of morphine 30 three times a day, Zanaflex and gabapentin. Depression Continue on Paxil History of migraine headaches Maxal prn Iron-deficiency anemia, stable Insomnia Xanax prn bedtime Deep venous thrombosis (DVT) prophylaxis Heparin subcutaneously. Disposition-anticipate discharge in the next 24-48 hours pending clinical improvement. VS, I&O, 24H, Fishbone Vital Signs/I&O Vital Signs Date Time Temp Pulse Resp B/P (MAP) Pulse Ox O2 Delivery O2 Flow Rate FiO2 08/11/16 09:20 18 Room Air 08/11/16 06:00 98.4 70 120/64 (51) 96 I&O- Last 24 Hours up to 6 AM 08/11/16 06:00 Intake Total 3720 ml Output Total 1475 ml Balance 2245 ml Laboratory Data 24H LABS Laboratory Tests 2 08/10/16 17:00: 08/11/16 08:25: Anion Gap 9, Glomerular Filtration Rate 46.9L, Blood Urea Nitrogen 33#H, Creatinine 1.30H, Sodium Level 141, Potassium Level 4.2, Chloride Level 109H, Carbon Dioxide Level 23, Calcium Level 8.5 CBC/BMP Laboratory Tests 08/11/16 08:25 Red Blood Count 4.26, Mean Corpuscular Volume 89.7, Mean Corpuscular Hemoglobin 27.9, Mean Corpuscular Hemoglobin Concent 31.1 L, Red Cell Distribution Width 17.4 H, Calcium Level 8.5 Microbiology Microbiology 08/09/16 Blood Culture - Preliminary, Resulted No growth after 24 hours . All specim... 08/09/16 Blood Culture - Preliminary, Resulted No growth after 24 hours . All specim... 08/09/16 Respiratory Virus Panel (PCR) (DANNY) - Final, Complete Human Rhinovirus/Enterovirus 08/10/16 Urine Culture, Received Pending FREEDOM MIRANDA MD August 11, 2016 09:57
[2016-08-11] MEDS ORDERED: NS 1,000 ML IV SCH (10:00)
[2016-08-11] MEDS: MORPHINE 30 MG SA TAB PO SCH ×3 (10:30→21:53)
[2016-08-11 14:00] VITALS: BP 146/77
[2016-08-11] MEDS: ONDANSETRON 4 MG TAB (S0181) PO PRN (15:44)
[2016-08-11] MEDS: BISACODYL 10 MG SUPP PR PRN (17:00)
[2016-08-11] MEDS ORDERED: methylPREDNISolone INJ 40 MG/1 ML VIAL (J2920) IV SCH (20:00)
[2016-08-11 20:10] VITALS: BP 125/70
[2016-08-11] MEDS: predniSONE 20 MG TAB PO SCH (20:44)
[2016-08-11] MEDS: hydrOXYzine 50 MG TAB PO SCH (20:45)
[2016-08-11] MEDS: LEVALBUTEROL 1.25 MG/0.5 ML CONCENTRATE NEB NEB PRN (22:06)
[2016-08-11] MEDS: zolPIDEM TARTRATE 5 MG TAB PO SCH (22:55)
[2016-08-12] MEDS: TRIAMCINOLONE ACETONIDE 0.025 % 80 GM CREAM TOP PRN (01:58)
[2016-08-12] MEDS: IPRATROPIUM 0.02% SOLN 0.5MG/2.5 ML NEB NEB SCH ×6 (02:35→23:47)
[2016-08-12] MEDS: LEVALBUTEROL 1.25 MG/0.5 ML CONCENTRATE NEB NEB SCH ×6 (02:35→23:47)
[2016-08-12] MEDS ORDERED: predniSONE 20 MG TAB PO ONE (03:00)
[2016-08-12 05:30] VITALS: BP 144/86
[2016-08-12] MEDS: HEPARIN SOD (PORCINE) 5000 UNITS/ML VIAL SQ SCH ×3 (06:42→21:20)
[2016-08-12 06:59] LABS: MEAN CORPUSCULAR HEMOGLOBIN 27.7 pg (27.0-33.0); MEAN CORPUSCULAR HGB CONC 31.8 g/dl (32.0-36.5); RED CELL DISTRIBUTION WIDTH 17.4 % (11.5-14.5); WHITE BLOOD COUNT 13.2 K/mm3 (4.0-10.0)
[2016-08-12 07:14] LABS: ANION GAP 5 MEQ/L (8-16); BLOOD UREA NITROGEN 35 MG/DL (7-18); CARBON DIOXIDE LEVEL 26 MEQ/L (21-32); CHLORIDE LEVEL 107 MEQ/L (98-107); CREATININE FOR GFR 1.04 MG/DL (0.55-1.02); GLOMERULAR FILTRATION RATE > 60.0 (>58); GLUCOSE, FASTING 111 MG/DL (70-105); SODIUM LEVEL 138 MEQ/L (136-145)
[2016-08-12] MEDS: SYMBICORT 160/4.5MCG INHALER 6GM INH SCH ×2 (07:53→19:50)
[2016-08-12] MEDS: tiZANidine 4 MG TAB PO SCH ×3 (08:45→20:33)
[2016-08-12] MEDS: DOCUSATE SODIUM 100 MG CAP PO SCH ×2 (08:45→20:34)
[2016-08-12] MEDS: PARoxetine 20 MG TAB PO SCH (08:45)
[2016-08-12] MEDS: predniSONE 20 MG TAB PO SCH ×2 (08:46→20:34)
[2016-08-12] MEDS: MONTELUKAST 10 MG TAB PO SCH (08:46)
[2016-08-12] MEDS: GABAPENTIN 400 MG CAP PO SCH ×3 (08:46→20:34)
[2016-08-12] MEDS: HYDROmorphone (DILAUDID) 4 MG TAB PO SCH (08:47)
[2016-08-12] MEDS: SENNA 8.6 MG TAB (SENOKOT) PO SCH ×2 (08:47→20:34)
[2016-08-12] MEDS: MORPHINE 15 MG SA TAB PO SCH ×2 (09:50→20:35)
[2016-08-12] MEDS: ONDANSETRON 4 MG TAB (S0181) PO PRN (12:21)
[2016-08-12] MEDS: BISACODYL 10 MG SUPP PR PRN (12:21)
[2016-08-12 14:00] VITALS: BP 128/62
[2016-08-12] MEDS ORDERED: MIRALAX *UNIT DOSE* 17GM PACKET PO PRN (14:45)
[2016-08-12] MEDS: HYDROmorphone 2 MG TAB PO PRN (16:01)
--- NOTE | 2016-08-12 16:48 | IPN ---
DATE: 08/12/2016 SUBJECTIVE: Patient is seen and examined in the room today. Patient still complains about significant wheezes. The patient has very poor IV access and she would like to get a peripherally inserted central catheter (PICC) line or central line while the patient is inpatient. When asking her regarding the patient's outpatient followup, the patient stated that since she was discharged from [facility] on 04/13/2016, the patient has not been seen by any type of medical provider. The patient still has all of her medications from [place]. OBJECTIVE: VITAL SIGNS: Temperature 98.4, pulse 82, respirations 17, blood pressure 135/77, pulse oximetry 90% in room air. GENERAL: No sign of acute distress, morbidly obese, alert and oriented times three. HEENT: Normocephalic, atraumatic. Extraocular motors grossly intact. CARDIOVASCULAR: Positive S1, S2, regular rate. LUNGS: Positive expiratory wheezes, but no crackles or rhonchi. ABDOMEN: Soft, nondistended. Bowel sounds present. No rebound or guarding. EXTREMITIES: No edema. No cyanosis. LABORATORY DATA: WBC 13.2, hemoglobin 11.5, hematocrit 36.5, platelet count is 263. Sodium 138, potassium 5, chloride 107, carbon dioxide 26, BUN 35, creatinine 1.04, GFR is greater than 60, fasting glucose 111, calcium 8. ASSESSMENT AND PLAN: 1. Asthma exacerbation secondary to human rhinovirus/enterovirus. Continue supportive care. The patient is on tapering dose of steroids, steroids are being tapered down to oral prednisone. 2. Extended spectrum beta-lactamase (ESBL) urinary tract infection (UTI). Urine culture came back showing Klebsiella with multi drug resistance. The patient was started on ciprofloxacin. 3. Depression. On Paxil. 4. History of migraine headaches. As needed medications. 5. Iron deficiency anemia. Hemoglobin and hematocrit are stable. 6. Chronic back pain with L5-S1 fusion. 7. Concern for narcotic abuse. [employer] was performed on the patient. [employer] search number is [id number]. The search shows that the patient has not received any narcotics in [facility] at all. The patient moved from [place] to [facility], and the patient was initially hospitalization at [facility] from 03/27 to 04/13/2016. During that hospitalization stay, pain management was consulted and it was recommended that the patient does not need such a high dose of narcotics. Initially, the patient was on Dilaudid 1 mg by mouth three times a day and morphine sulfate 30 mg by mouth three times a day. Before discharge, the patient was tapered down to no narcotic at all. During that hospitalization, per nursing staff and medical record, the patient had an episode that the patient crushed her pain medication and injected it into her IV access. In this hospitalization stay, the patient was admitted on 08/10/2016, during the admission process, the patient told pharmacy staff that she has been on Dilaudid and morphine sulfate. However, there is a suspicion of why the patient is still on such a high dose of narcotics. I reached out to pharmacy for further assistance. The pharmacist reached out to the patient's previous pharmacy in [place]. They did not prescribe any additional medications, including the narcotics since March. This raised a significant concern if the patient has been taking the Dilaudid and MS Contin for the six months while the patient is in [place] and there is a question about why the patient told our pharmacy staff that she has been taking those narcotics. Unfortunately, urine toxicology was not obtained during the admission. We are not sure whether the patient has been taking narcotics through different means. It is unable to determine whether the patient can taper off those narcotics safely and rapidly. I will decrease narcotic dose starting today with pain management assistance to design a safe narcotic weaning regimen. 8. Constipation. The patient is already on Senna. I will add MiraLAX as needed. 9. Deep vein thrombosis (DVT) prophylaxis. The patient is on heparin. DISPOSITION: The patient's respiratory symptoms shows continuous improvement. All the medications have been switched to oral form; however, the patient's discharge plan is delayed due to concern for her narcotic misuse. Unable to determine whether the patient has taken narcotics in the past several months even though the patient was recommended not to take any narcotics. I ran I-STOP and it shows the patient did not have any prescriptions given in [facility], and we reached out to the [place] pharmacy, which also stated that the patient has not been obtaining medications since March. Due to concern for narcotic withdrawal, we will perform a rapid taper. We appreciate pain management assistance. Once the patient can be safely off the narcotics, the patient will be discharged home.
[2016-08-12] MEDS: CIPROFLOXACIN 250 MG TAB PO SCH (17:22)
--- NOTE | 2016-08-12 18:21 | IPNPDOC ---
General Date of Service/Time The patient was seen on 08/12/16 at 18:11. Chief complaint The patient is a 46-year-old female admitted with a reason for visit of Asthma Exacerbation. Pain management is asked to see in regard to her . Pain medications and a weaning schedule. Progress Note Pain management is asked to review patient's current medications. I did carefully review her chart. I did pull and [facility] I stop to evaluate her prescribed pain medications over the last 6 months and I did discuss the case with Dr.Yu Villar. Ms. Bender was seen for an extensive evaluation during her March hospitalization by [facility] Roblero. At that time it was determined that her use of opiates were not in her best interest and a recommendation for weaning was made. I cannot see where anyone has prescribed opiate medications in the [facility] over the last 6 months. Ms. Bender came to the hospital with shortness of breath and acute asthma exacerbation and possible pneumonia. She is currently being evaluated for issues with environmental toxins such as mold. On admission she apparently told the this team that she was on morphine 30 mg 3 times a day as well as Dilaudid 4 mg [address] Villar has carefully followed her progress. He became aware of some behaviors which were suspicious for drug seeking behaviors and a decision was made to wean her medications. Her morphine was decreased to MS Contin 15 mg twice a day and and Dilaudid decreased to 2 mg every 6 hours. She does continue with gabapentin 800 mg 3 times a day, hydroxyzine 100 mg at bedtime and tizanidine 4 mg 3 times a day. I do feel that it would be safe to to stop her morphine and Dilaudid in the morning. I would strongly recommend referral to addiction services such as [facility] addiction services or [facility]. Both these programs have walk and services. She needs to follow-up with her primary care provider due to her respiratory situation use of opioids probably has had a higher risk for respiratory suppression and . Should she have any issues with withdrawal symptoms. Would recommend use of clonidine 0.1 mg 3 times a day for a few days for any withdrawal symptoms. I did discuss this with Dr. Villar. Should the patient be experiencing issues with chronic pain. She will need a recommendation and referral from her primary care provider to our pain center and at that time we would not be looking at using any opioid medications. Allergies Allergies: Coded Allergies: Daptomycin (Unverified Allergy, Unknown, 03/26/16) Sumatriptan (Unverified Allergy, Unknown, chest pains, 03/26/16) TAPE (Unverified Adverse Reaction, Unknown, rash, 03/26/16) VS,Fishbone, I+O VS, Fishbone, I+O Laboratory Tests 08/12/16 06:43 Red Blood Count 4.17, Mean Corpuscular Volume 87.0, Mean Corpuscular Hemoglobin 27.7, Mean Corpuscular Hemoglobin Concent 31.8 L, Red Cell Distribution Width 17.4 H, Calcium Level 8.0 L Vital Signs Date Time Temp Pulse Resp B/P (MAP) Pulse Ox O2 Delivery O2 Flow Rate FiO2 08/12/16 16:35 18 Room Air 08/12/16 14:00 97.7 94 128/62 (84) 96 I&O- Last 24 Hours up to 6 AM 08/12/16 06:00 Intake Total 4160 ml Output Total 1300 ml Balance 2860 ml Francisca Arevalo NUCLEAR OPERATOR August 12, 2016 18:21
[2016-08-12] MEDS: hydrOXYzine 50 MG TAB PO SCH (20:34)
[2016-08-12 20:35] VITALS: BP 156/83
[2016-08-12] MEDS: zolPIDEM TARTRATE 5 MG TAB PO SCH (22:39)
[2016-08-13] MEDS: LEVALBUTEROL 1.25 MG/0.5 ML CONCENTRATE NEB NEB SCH ×6 (03:06→23:35)
[2016-08-13] MEDS: IPRATROPIUM 0.02% SOLN 0.5MG/2.5 ML NEB NEB SCH ×6 (03:06→23:35)
[2016-08-13] MEDS: CIPROFLOXACIN 250 MG TAB PO SCH ×2 (05:29→17:09)
[2016-08-13] MEDS: HYDROmorphone 2 MG TAB PO PRN (05:30)
[2016-08-13] MEDS: HEPARIN SOD (PORCINE) 5000 UNITS/ML VIAL SQ SCH ×3 (05:30→21:30)
[2016-08-13 05:35] VITALS: BP 146/84
[2016-08-13] MEDS ORDERED: FLEET ENEMA PR ONE ×3 (06:00→23:00)
[2016-08-13 06:17] LABS: MEAN CORPUSCULAR HGB CONC 31.4 g/dl (32.0-36.5); RED CELL DISTRIBUTION WIDTH 17.3 % (11.5-14.5)
[2016-08-13 06:35] LABS: ANION GAP 4 MEQ/L (8-16); BLOOD UREA NITROGEN 26 MG/DL (7-18); CALCIUM LEVEL 8.1 MG/DL (8.5-10.1); CARBON DIOXIDE LEVEL 28 MEQ/L (21-32); CHLORIDE LEVEL 110 MEQ/L (98-107); CREATININE FOR GFR 0.78 MG/DL (0.55-1.02); GLOMERULAR FILTRATION RATE > 60.0 (>58); GLUCOSE, FASTING 118 MG/DL (70-105); POTASSIUM SERUM 4.4 MEQ/L (3.5-5.1); SODIUM LEVEL 142 MEQ/L (136-145)
--- NOTE | 2016-08-13 06:59 | REP ---
Clinical: Chest pain . Comparison: 08/09/2016 . Findings: The mediastinum and cardiac silhouette are stable and within normal limits for portable technique. The lung montes de oca are clear without acute consolidation, effusion, or pneumothorax. Skeletal structures are intact. Wires extend superiorly to the level of the mid thoracic spine. Impression: No acute cardiopulmonary process appreciated. Signed by Adam Tucker MD 08/13/2016 06:51 A
[2016-08-13] MEDS: SYMBICORT 160/4.5MCG INHALER 6GM INH SCH ×2 (07:06→19:48)
[2016-08-13] MEDS: GABAPENTIN 400 MG CAP PO SCH ×3 (08:55→21:46)
[2016-08-13] MEDS: PARoxetine 20 MG TAB PO SCH (08:55)
[2016-08-13] MEDS: DOCUSATE SODIUM 100 MG CAP PO SCH ×2 (08:56→21:45)
[2016-08-13] MEDS: SENNA 8.6 MG TAB (SENOKOT) PO SCH ×2 (08:56→21:46)
[2016-08-13] MEDS: MONTELUKAST 10 MG TAB PO SCH (08:56)
[2016-08-13] MEDS: tiZANidine 4 MG TAB PO SCH ×3 (08:56→21:46)
[2016-08-13] MEDS: predniSONE 20 MG TAB PO SCH ×2 (08:56→21:46)
[2016-08-13] MEDS: RIZATRIPTAN BENZOATE 10 MG TAB PO PRN ×2 (08:56→15:04)
[2016-08-13] MEDS: ONDANSETRON 4 MG TAB (S0181) PO PRN (09:02)
[2016-08-13] MEDS: LEVALBUTEROL 1.25 MG/0.5 ML CONCENTRATE NEB NEB PRN (13:50)
[2016-08-13 14:00] VITALS: BP 138/74
--- NOTE | 2016-08-13 14:49 | IPN ---
DATE: 08/13/2016 SUBJECTIVE: The patient is seen and examined in the room today. The patient continues to complain about significant wheezes. The patient had a complaint about acute chest pain around midnight. The patient stated the pain is along the sternum. The pain is worsened by direct palpation. There is no radiation of the pain. The pain is more toward sharp in quality. OBJECTIVE: VITAL SIGNS: Temperature is 96.8, pulse 83, respiration 18, blood pressure 146/84, pulse ox 97/% in room air. GENERAL: No sign of acute distress. Alert and oriented times three. HEENT: Normocephalic, atraumatic. Extraocular muscles grossly intact. CARDIOVASCULAR: Positive S1, S2. Regular rate. LUNGS: Positive expiratory wheezes throughout with no crackles or rhonchi. MUSCULOSKELETAL: Tenderness to palpation in the sternum. The chest pain the patient experienced at midnight can be recreated by direct pressure to the sternum. ABDOMEN: Soft, nontender. Not distended. Bowel sound present. EXTREMITIES: No edema. No cyanosis. LABORATORY DATA: WBC 9, hemoglobin 11, hematocrit 35, platelet count 274. Sodium 142, potassium 4.4, chloride 110, carbon dioxide 28, BUN 26, creatinine 0.78, GFR greater than 60, fasting glucose 118, calcium 8.1. Troponin I is less than 0.02 times two sets. ASSESSMENT/PLAN: 1. Acute asthma exacerbation secondary to human rhinovirus/enterovirus. Continue steroids. Continue breathing treatments as needed. The patient to have a slow recovery from the exacerbation. 2. DEB (Klebsiella) urinary tract infection: The patient is started on ciprofloxacin. 3. Chest pain: Highly suggestive of musculoskeletal pain during physical exam. The patient has a troponin set negative times two. EKG was performed shortly after the onset of chest pain. The EKG showed normal sinus rhythm without any T wave abnormalities. 4. Chronic pain: Extreme high dose of narcotics. Pain management has been consulted and the patient's previous charts have been reviewed. Per the record, the patient does not need to be on super high dose of narcotics. After discussing with pain specialist, the patient's pain regimen has been tapered in the last 2 days. The patient will be completely off the narcotics today. If the patient starts to experience narcotic withdrawal symptoms, we may attempt clonidine. Otherwise, the patient may be beneficial to follow with the drug addiction clinic in the outpatient setting after discharge. 5. Constipation: The patient's bowel movement regimen has been adjusted. The patient had a bowel movement in the last 24 hours. 6. Depression: On Paxil. 7. History of migraine headaches, stable. 8. Iron deficiency anemia: Hemoglobin and hematocrit stable. 9. Concern for narcotic abuse: The patient will be weaned of the narcotic completely today. The patient has a history of taking morphine sulfate 30 mg by mouth three times a day and Dilaudid 1 mg by mouth three times a day. I did run I-STOP yesterday. The patient has not received any narcotics in [facility]. Our pharmacist has called the pharmacy in [place]. The patient has not picked up any narcotic medication in [place] pharmacy since March. 10. Deep venous thrombosis (DVT) prophylaxis: The patient is on heparin.
[2016-08-13] MEDS ORDERED: MOM 30ML SUSPENSION UDC PO PRN (16:45)
[2016-08-13] MEDS ORDERED: METHYLNALTREXONE BROMIDE 12 MG/0.6 ML VIAL (RELISTOR) SC ONE (17:00)
--- NOTE | 2016-08-13 19:47 | ECGEPIP ---
Stationary ECG Study [facility] Test Date: 2016-08-13 Pat Name: JYOTHI OWENS Department: Room: [place] [address] Gender: F Poultryman: KARINA GAMBLE : 1970 Requested By: KIMO PARSON Order Number: [id number] Reading MD: Daniel Leal Measurements Intervals [place] Rate: 83 P: 37 KS: 143 QRS: 20 QRSD: 113 T: 15 QT: 360 QTc: 423 Interpretive Statements SINUS RHYTHM MODERATE INTRAVENTRICULAR CONDUCTION DELAY Electronically Signed On 08-13-2016 19:46:48 EDT by Daniel Leal
[2016-08-13] MEDS: MAGNESIUM CITRATE 300 ML BTL PO ONE ×2 (21:00→21:46)
[2016-08-13] MEDS: hydrOXYzine 50 MG TAB PO SCH (21:46)
[2016-08-13 22:00] VITALS: BP 125/63
[2016-08-13] MEDS: NYSTATIN 100,000 UNITS/GM TOPICAL PWD 15 GM TOP SCH (23:08)
[2016-08-13] MEDS: zolPIDEM TARTRATE 5 MG TAB PO SCH (23:08)
[2016-08-14] MEDS: IPRATROPIUM 0.02% SOLN 0.5MG/2.5 ML NEB NEB SCH ×6 (03:16→23:03)
[2016-08-14] MEDS: LEVALBUTEROL 1.25 MG/0.5 ML CONCENTRATE NEB NEB SCH ×6 (03:16→23:03)
[2016-08-14] MEDS: HEPARIN SOD (PORCINE) 5000 UNITS/ML VIAL SQ SCH ×3 (05:09→21:40)
[2016-08-14 06:00] VITALS: BP 127/67
[2016-08-14] MEDS ORDERED: FLEET ENEMA PR ONE (06:00)
[2016-08-14] MEDS: CIPROFLOXACIN 250 MG TAB PO SCH ×2 (06:02→17:05)
[2016-08-14 06:04] LABS: MEAN CORPUSCULAR HEMOGLOBIN 27.4 pg (27.0-33.0); MEAN CORPUSCULAR HGB CONC 31.7 g/dl (32.0-36.5); MEAN CORPUSCULAR VOLUME 86.4 fl (80.0-96.0); RED CELL DISTRIBUTION WIDTH 17.2 % (11.5-14.5); WHITE BLOOD COUNT 7.5 K/mm3 (4.0-10.0)
[2016-08-14 06:21] LABS: ANION GAP 6 MEQ/L (8-16); BLOOD UREA NITROGEN 18 MG/DL (7-18); CARBON DIOXIDE LEVEL 27 MEQ/L (21-32); CHLORIDE LEVEL 109 MEQ/L (98-107); CREATININE FOR GFR 0.74 MG/DL (0.55-1.02); GLOMERULAR FILTRATION RATE > 60.0 (>58); GLUCOSE, FASTING 111 MG/DL (70-105); POTASSIUM SERUM 4.5 MEQ/L (3.5-5.1); SODIUM LEVEL 142 MEQ/L (136-145)
[2016-08-14] MEDS: SYMBICORT 160/4.5MCG INHALER 6GM INH SCH ×2 (07:32→19:29)
[2016-08-14] MEDS: PARoxetine 20 MG TAB PO SCH (08:29)
[2016-08-14] MEDS: DOCUSATE SODIUM 100 MG CAP PO SCH ×2 (08:30→21:42)
[2016-08-14] MEDS: tiZANidine 4 MG TAB PO SCH ×3 (08:30→21:42)
[2016-08-14] MEDS: predniSONE 20 MG TAB PO SCH ×2 (08:30→21:42)
[2016-08-14] MEDS: GABAPENTIN 400 MG CAP PO SCH ×3 (08:30→21:42)
[2016-08-14] MEDS: SENNA 8.6 MG TAB (SENOKOT) PO SCH ×2 (08:30→21:42)
[2016-08-14] MEDS: NYSTATIN 100,000 UNITS/GM TOPICAL PWD 15 GM TOP SCH ×2 (08:31→21:43)
[2016-08-14] MEDS: MONTELUKAST 10 MG TAB PO SCH (09:34)
[2016-08-14 13:19] VITALS: BP 145/80
[2016-08-14 14:00] VITALS: BP 141/75
--- NOTE | 2016-08-14 18:52 | IPN ---
DATE: 08/14/2016 SUBJECTIVE: Patient seen and examined in the room today. In the morning patient still complaining about wheezes. Patient feels she may have more sputum production, but she can easily get it out of her throat. Patient still complaining about abdominal pain and chest pain, which worsens with respiration. In the afternoon, patient made a suicidal comment to the staff, and it was witnessed by multiple staff. Sitter had to be ordered and psychiatrist consulted. OBJECTIVE: VITAL SIGNS: Temperature 97, pulse is 73, respirations 18, blood pressure is 127/67, pulse oximetry 94% in room air. GENERAL: No sign of acute distress. Alert and oriented times three. HEENT: Normocephalic, atraumatic. Extraocular motor grossly intact. CARDIOVASCULAR: Positive S1, S2, regular rate. LUNGS: Positive expiratory wheezes throughout. No crackles. No rhonchi. MUSCULOSKELETAL: Some mild tenderness to palpation in the sternum. There is tenderness to palpation on the epigastric region. Reducible with pressure. ABDOMEN: Nondistended, soft. Bowel sounds present. No rebound. No guarding. EXTREMITIES: No edema. No sign of cyanosis. LABORATORY DATA: WBC 7.5, hemoglobin 11.1, hemoglobin 35.1, platelet count 242. Sodium 142, potassium 4.5, chloride 109, carbon dioxide 27, BUN 18, creatinine 0.74, GFR greater than 60, fasting glucose is 111, calcium is 8.0. ASSESSMENT AND PLAN: 1. Asthma exacerbation secondary to viral infection. Patient's respiratory panel shows positive for human rhinovirus/enterovirus. Continue steroids. Continue treatment as needed. Patient also has other asthma medications. I will start a trial of Acapella to see if patient can clear the secretions, and patient will start on Mucinex. 2. Suicidal ideation. Patient will be placed on suicidal precautions, which includes a sitter, and I have consulted Dr. Coyne from psychiatry. Patient will be evaluated. 3. Klebsiella urinary tract infection. Patient on Cipro. 4. Abdominal pain, most likely secondary to musculoskeletal pain from excessive cough and breathing. 5. Chronic pain. Patient has a history of narcotic use. Pain management has been consulted. There is a suspicion for patient misuse of narcotics, and patient was weaned off narcotic completely. Patient should not be on any addictive medications. 6. Constipation. Patient had multiple bowel management. Patient finally had a good bowel movement with enema. 7. Anxiety and depression. Patient was on Paxil. There is a concern may or may not be compliant with medication regimen. 8. History of migraine headache, stable. 9. Iron deficiency anemia. Hemoglobin and hematocrit stable. 10. There is a concern for narcotic use. Patient should have IV access. Patient should not be on any narcotics, benzodiazepines, or any other addictive medications. 11. Deep vein thrombosis (DVT) prophylaxis. Patient on heparin.
[2016-08-14] MEDS: hydrOXYzine 50 MG TAB PO SCH (21:41)
[2016-08-14] MEDS: guaiFENesin ER 600 MG TAB PO SCH (21:41)
[2016-08-14] MEDS: zolPIDEM TARTRATE 5 MG TAB PO SCH (21:47)
[2016-08-14 22:00] VITALS: BP 143/79
[2016-08-15] MEDS: LEVALBUTEROL 1.25 MG/0.5 ML CONCENTRATE NEB NEB SCH ×2 (03:17→08:00)
[2016-08-15] MEDS: IPRATROPIUM 0.02% SOLN 0.5MG/2.5 ML NEB NEB SCH ×2 (03:17→08:00)
--- NOTE | 2016-08-15 04:10 | CR ---
DATE OF CONSULTATION: 08/14/2016 CONSULTATION REPORT FOR: Chyna Villar DO. HISTORY OF PRESENT ILLNESS: I have been asked to evaluate this patient that is being treated at the medical floor after she made a suicidal statement. Patient told Dr. Villar that if nobody treats her anxiety "I'm going to kill myself." Patient is a 46-year-old female with a history of depression. Patient also has been treated for asthma, chronic back pain, osteoarthritis, migraine headache, iron deficiency anemia, obstructive sleep apnea, fibromyalgia, and morbid obesity. Patient is status post hysterectomy, back surgery with L5-S1 fusion, cholecystectomy, appendectomy, and bilateral knee arthroplasty. During the interview today, patient states that she was quite anxious and frustrated and told the doctor that she may want to kill herself in the context of being frustrated because of her high anxiety and pain; however, she says that she has no intention to kill herself. Patient denied any suicidal ideation during the interview. Patient states that she has been treated for depression and was started on Paxil and "the only thing they do is to increase my Paxil." "I don't think the Paxil is working." Patient was on Prozac before then Paxil with limited results. Patient also wants to make sure that her treatment for anxiety is also changed. Patient got upset when exploring her opiate intake. She said that "everybody is telling me I'm an addict and I'm not." Apparently, she moved from [place]. She says that she was treated with Dilaudid and morphine and she brought prescriptions from [place] to [place]. Said that she was in the hospital and had some leftovers, so she was taking this medication because of the pain. She denies the use of opiates bought from the street. A pain consult was done by Francisca Arevalo on 08/12. She reviewed the case and stated that [facility] has already evaluated the patient in March of this year and opiates are not recommended for the treatment of pain of this patient, so Francisca Arevalo on the consult of 08/12, recommended to taper the opiates down, to use clonidine 0.1 mg by mouth three times a day for possible opiate withdrawal and to refer the patient for addictions treatment. Today during the interview, patient is cooperative. Patient reports depression and anxiety and wants to be treated for it. There is no evidence of psychosis. No auditory or visual hallucinations or delusions. Patient is frustrated because her treatment for depression is not effective. Patient is somewhat manipulative during the interview. PAST PSYCHIATRIC HISTORY: As above. Patient has been diagnosed of depression and anxiety and it is unknown if she has an opiate addiction, although is very suspicious. PAST MEDICAL HISTORY: As above. Patient has been diagnosed of asthma, chronic back pain, osteoarthritis, migraine headache, iron deficiency anemia, obstructive sleep apnea, fibromyalgia. Patient is now being treated for acute asthma exacerbation likely secondary to recent viral infection with rhinovirus and enterovirus. FAMILY HISTORY: Noncontributory. SOCIAL HISTORY: Patient recently moved to [place]. She lives with her . She has history of marijuana use for more than 20 years, but denied the use of alcohol. SUBSTANCE ABUSE HISTORY: As above. Patient stated that has been using marijuana for more than 20 years, but denies that she has been addicted to opiates. She also denies the use of alcohol. LABORATORIES: At admission show a CBC with white blood cells of 13.2, hemoglobin of 11.9, RDW of 17.4. BMP shows a creatinine of 1.3, BUN of 33. Her serology is pending. Urine shows 4 urine white blood cells. MENTAL STATUS EXAMINATION: Patient is dressed in hospital gown. Patient is cooperative. Speech is clear, coherent with normal rate and is spontaneous. Patient has fair eye contact. Mood is reported as depressed and anxious. Affect is congruent with mood. Patient is oriented to time, place, person and situation. Maintains attention and concentration fairly. Instant recall, recent and remote memory are intact. Thought processes are coherent, logical and goal directed. Patient does not have auditory or visual hallucinations. Patient does not have paranoid, persecutory, somatic, grandiose or anglican delusions. Patient is denying suicidal or homicidal ideation and stated that she said that she was going to kill herself in the context of being very anxious, frustrated, and also in order to get attention. Judgment and insight are limited. DIAGNOSES: AXIS I: Major depressive disorder. Unspecified anxiety disorder. Rule out opiate dependency. Cannabis dependency. AXIS II: Deferred. AXIS III: Acute asthma exacerbation likely secondary to viral infection with rhinovirus or enterovirus. Chronic back pain. Osteoarthritis. Migraine headache. Iron deficiency anemia. Obstructive sleep apnea. Fibromyalgia. Morbid obesity. RECOMMENDATIONS: 1. After consultation with the pain clinic, patient is not a candidate for opiate treatment for her chronic pain. She has been taken off opiates. 2. In case of opiate withdrawal, the recommendation is to use clonidine 0.1 mg up to three times a day. 3. Depression. Patient reports poor results with Paxil. She is taking 60 mg a day. I recommend to decrease the Paxil to 30 mg by mouth daily and start her on Effexor XR 37.5 mg by mouth every morning. If patient tolerates well this dosage of Effexor, then increase to 75 mg by mouth every morning and taper Paxil slowly and discontinue. Patient will need followup appointment for psychotropic medication management and individual psychotherapy. 4. As far as the suicidal potential, patient states that is not having suicidal thoughts. She is able to contract for safety. She stated that she made the threat because she was irritable and frustrated because of her anxiety and pain and the lack of results of the treatment. 5. For the insomnia, I would use a short trial of Ambien that she is already taking or trazodone 50-100 mg and titrate until the results are achieved. MTDD
[2016-08-15] MEDS: HEPARIN SOD (PORCINE) 5000 UNITS/ML VIAL SQ SCH (05:23)
[2016-08-15] MEDS: CIPROFLOXACIN 250 MG TAB PO SCH (06:02)
[2016-08-15] MEDS: SYMBICORT 160/4.5MCG INHALER 6GM INH SCH (07:12)
[2016-08-15] MEDS: LEVALBUTEROL 1.25 MG/0.5 ML CONCENTRATE NEB NEB PRN (08:04)
[2016-08-15] MEDS: tiZANidine 4 MG TAB PO SCH (08:41)
[2016-08-15] MEDS: PARoxetine 20 MG TAB PO SCH (08:41)
[2016-08-15] MEDS: DOCUSATE SODIUM 100 MG CAP PO SCH (08:41)
[2016-08-15] MEDS: MONTELUKAST 10 MG TAB PO SCH (08:41)
[2016-08-15] MEDS: GABAPENTIN 400 MG CAP PO SCH (08:41)
[2016-08-15] MEDS: guaiFENesin ER 600 MG TAB PO SCH (08:42)
[2016-08-15] MEDS: SENNA 8.6 MG TAB (SENOKOT) PO SCH (08:42)
[2016-08-15] MEDS: predniSONE 20 MG TAB PO SCH (08:42)
[2016-08-15] MEDS: TRIAMCINOLONE ACETONIDE 0.025 % 80 GM CREAM TOP PRN (08:42)
[2016-08-15] MEDS: NYSTATIN 100,000 UNITS/GM TOPICAL PWD 15 GM TOP SCH (09:00)
[2016-08-15] MEDS ORDERED: EFFE37.527 PO (09:36)
[2016-08-15] MEDS ORDERED: BISA10SU PR (09:36)
[2016-08-15] MEDS ORDERED: CIPR-250 PO (09:36)
[2016-08-15] MEDS ORDERED: AMBI5TAB PO (09:36)
[2016-08-15] MEDS ORDERED: PRED10TA PO (09:36)
[2016-08-15] MEDS ORDERED: MONT10TA2 PO (09:36)
[2016-08-15] MEDS ORDERED: SENN1TAB4 PO (09:36)
[2016-08-15] MEDS ORDERED: PAXI30TA11 PO (09:36)
[2016-08-15] MEDS ORDERED: ZANA4TAB PO (09:36)
[2016-08-15] MEDS ORDERED: GABA-283 PO (09:36)
[2016-08-15] MEDS ORDERED: ALBU17IN INH (09:36)
[2016-08-15] MEDS ORDERED: GUAI60TA PO (09:36)
[2016-08-15] MEDS ORDERED: SYMB16INH INH (09:36)
--- NOTE | 2016-08-15 19:45 | DSES ---
DATE OF ADMISSION: 08/10/2016 DATE OF DISCHARGE: 08/15/2016 PRIMARY CARE PROVIDER: None. CONSULTANTS: Pain management, Francisca Arevalo NP and psychiatry, Dr. Vishal Coyne. PROCEDURES: None. COMPLICATIONS: None. ADMISSION/DISCHARGE DIAGNOSES: 1. Asthma exacerbation secondary to Human Rhinovirus-Enterovirus. 2. Suicidal ideation during hospitalization. 3. Narcotic abuse. 4. Klebsiella urinary tract infection. 5. Muscular abdominal pain. 6. Musculoskeletal chest pain. 7. Chronic back pain and knee pain. 8. Constipation. 9. Anxiety/depression. 10. History of migraine headaches. 11. Iron deficiency anemia. HOSPITALIZATION COURSE: Patient is a 46-year-old female who presented to [facility] on 08/10/2016, for acute respiratory distress. During the examination patient was found to have asthma exacerbation. Respiratory panel came back positive for viral infection with Enterovirus and Human Rhinovirus and patient was admitted to the hospital. IV steroids was started and patient was also started on breathing treatments. During the admission process, when reviewing the medication with the patient, patient stated her old pain medication regimen to the staff which consists of high dose of Dilaudid and MS Contin. Her entire history in [facility] was reviewed and the concern was discussed with the pharmacist. An I-STOP was performed on the patient. It showed that patient never received narcotics prescription in [facility]. Patient moved to [place] since March. Before she moved to [place], she was on significant dose of narcotics and during her March admission patient was determined not suitable for such a high narcotic use for her chronic pain. During that hospitalization, pain management was consulted and it was decided to wean patient off the narcotic completely and during the March discharge, no narcotic was given to the patient and patient was instructed not to start on any type of narcotics due to the high risk for addiction. Therefore, did raise a concern when during the admission process patient stated that she has continued to use the same high dose narcotic regimen. Our pharmacy confirmed with the patient's old pharmacy in [place] and patient did not receive long-term pain medication from the old pharmacy. Unfortunately no urine toxicology was obtained during the admission process, therefore it is uncertain whether patient has been taking controlled substance without a physician's recommendation. Pain management was consulted again and patient has been on rapid taper of narcotics and patient's narcotics are weaned down within 2 days. During the chart review, there is an incident that patient was crushing her narcotics and injecting into her peripheral IV. Therefore, patient's IV regimen is rapidly switched to oral form. Since then, patient has been requesting to receive a peripherally inserted central catheter (PICC) line or central line so she can get her treatments easier into her body. The attending doctor has been aware of the risks and has been refusing her requests. On 08/14/2016, patient expressed suicidal comments saying she is going to hurt herself and the psychiatrist, Dr. Coyne, was consulted. Later, it is recommended that patient should adjust her antidepressant medications and patient is determined to be safe for discharge home and she does not require inpatient mental health unit (IMHU) admission. On 08/15/2016, patient is determined to be medically stable for discharge. All the medications have been prescribed to her for a 7 day supply without any narcotics and have established a new primary care provider for the patient in 3 days. OBJECTIVE: VITAL SIGNS: Temperature 96.5, pulse 75, respiration rate 20, blood pressure 143/79, pulse oxygen 92% in room air. LABORATORY DATA: WBC 7.5, hemoglobin 11.1, hematocrit 35.1, platelet count 242. Sodium 142, potassium 4.5, chloride 109, carbon dioxide 27, BUN 18, creatinine 0.74, GFR greater than 60, fasting glucose 111, calcium 8. MICROBIOLOGY: Respiratory panel showed Human Rhinovirus/Enterovirus. Urine culture showed Klebsiella (extended-spectrum beta-lactamase) (ESBL). IMAGING STUDIES: Chest xray showed normal portable chest xray. DISCHARGE MEDICATIONS: - albuterol two puff inhalation every 4 hours as needed - bisacodyl 10 mg per rectum every 12 hours as needed for constipation - Symbicort two puff inhalation twice a day - ciprofloxacin 250 mg by mouth twice a day for 2 more days to complete the ESBL urinary tract infection (UTI) treatment - gabapentin 800 mg by mouth three times a day - Mucinex 1200 mg by mouth twice a day - montelukast 10 mg by mouth daily - Paxil 30 mg by mouth daily - prednisone on tapering regimen - Senna two tablets by mouth twice a day - Zanaflex 4 mg by mouth three times a day - Effexor XR 37.5 mg by mouth daily - Ambien 5 mg by mouth nightly DISCHARGE INSTRUCTIONS: Discontinue lines. Discharge home. Activity as tolerated. Diet as tolerated. Patient is instructed not to use any narcotics due to the high addiction risk. Patient should followup with primary care provider, Dr. Gatito Edmond, on 08/18/2016. DISCHARGE CONDITION: Stable. DISCHARGE TIME: Greater than 30 minutes. During the hospitalization, patient demonstrated high risk for narcotic misuse. There is a concern that patient also demonstrated uncontrolled psychiatric condition. It would be beneficial for patient to establish with a psychiatrist in outpatient setting. Rehabilitation facility such as [facility] information was also given to the patient. Patient is strongly recommended to followup with [facility] when patient is available to help with her addiction behavior.
[2016-08-17 14:13] LABS: AUREOBASIDIUM PULLULANS Negative (Negative); MICROPOLYSPORA FAENI AB Negative (Negative); PIGEON SERUM AB Negative (Negative); THERMOACTINOMYCES SACCHARI Negative (Negative); THERMOACTINOMYCES VULGARIS Negative (Negative)
== END 2016-08-15 11:16 | disposition home or self-care (01) | DRG 143 ==
LOC: M ED 19:26 → M ED INP 08-10 00:49 → EEVIPCON 08-10 00:49 → M MSPAV 08-10 01:39
PROVIDERS: ADMIT General Practice; ATTEND Internal Medicine
DX: J39.8 Other specified diseases of upper respiratory tract (principal); R45.851 Suicidal ideations; J45.901 Unspecified asthma with (acute) exacerbation; N39.0 Urinary tract infection, site not specified; E66.01 Morbid (severe) obesity due to excess calories; Z68.43 Body mass index [BMI] 50.0-59.9, adult; B97.89 Other viral agents as the cause of diseases classified elsewhere; F41.9 Anxiety disorder, unspecified; F32.9 Major depressive disorder, single episode, unspecified; D50.9 Iron deficiency anemia, unspecified; K59.00 Constipation, unspecified; M54.5 Low back pain; G43.909 Migraine, unspecified, not intractable, without status migrainosus; R07.89 Other chest pain; Z79.899 Other long term (current) drug therapy